=== PATIENT | female | born 1960 | race Two or more races ===

== ENCOUNTER 2025-09-15 09:46 | Inpatient (IN) | payer OTHER, MEDICAID ==
[~2025-09-15] VITALS: Ht 157.5 cm; Wt 98.1 kg
--- NOTE | 2025-09-15 11:57 | ED.PDOC ---
HPI Comments This is a 65 year old female presenting to the ED with chief complaint of extremity swelling. Patient reports that she has been experiencing bilateral lower leg swelling with associated redness, drainage, and SOB for the past month, worsening over time and worse to her left leg. Patient denies any chest pain, dizziness, fever, chills, numbness, or weakness. Chief Complaint: Extremity Swelling Time Seen by MD: 11:56 Reviewed Notes: Nurses Notes, Medications, Allergies Allergies: Coded Allergies: NO KNOWN ALLERGIES (Unverified , 09/15/25) Information Source: Patient Mode of Arrival: Wheelchair Severity: Moderate Timing: Months Duration: Since onset Prehospital treatment: None Onset: At Rest Cardiac Risk Factors: HTN Associated Signs and Symptoms: SOB, Calf Swelling Past Medical History PAST MEDICAL HISTORY: CHF, Depression, HTN Surgical History: Denies all surgeries Family History Family History: Reviewed,noncontributory to illness Social History Smoker: Non-Smoker Alcohol: Denies ETOH Use Drugs: Denies Drug Use Lives In: Home Constitutional: denies: chills, diaphoresis, fatigue, fever, malaise, sweats, weakness, others EENTM: denies: blurred vision, double vision, ear bleeding, ear discharge, ear drainage, ear pain, ear ringing, eye pain, eye redness, hearing loss, mouth pain, mouth swelling, nasal discharge, nose bleeding, nose congestion, nose pain, photophobia, tearing, throat pain, throat swelling, voice changes, others Respiratory: reports: shortness of breath; denies: cough, hemoptysis, orthopnea, SOB at rest, SOB with excertion, stridor, wheezing, others Cardiovascular: reports: edema; denies: chest pain, dizzy spells, diaphoresis, Dyspnea on exertion, irregular heart beat, left arm pain, lightheadedness, palpitations, PND, syncope, others Gastrointestinal: denies: abdomen distended, abdominal pain, blood streaked bowels, constipated, diarrhea, dysphagia, difficulty swallowing, hematemesis, melena, nausea, poor appetite, poor fluid intake, rectal bleeding, rectal pain, vomiting, others Genitourinary: denies: burning, dysuria, flank pain, frequency, hematuria, incontinence, penile discharge, penile sore, pain, testicle pain, testicle swelling, urgency, others Neurological: denies: dizziness, fainting, headache, left sided numbness, left sided weakness, numbness, paresthesia, pre-existing deficit, right sided numbness, right sided weakness, seizure, speech problems, tingling, tremors, weakness, others Musculoskeletal: denies: back pain, gout, joint pain, joint swelling, muscle pain, muscle stiffness, neck pain, others Integumetry: reports: others (Redness to bilateral lower extremity); denies: bruises, change in color, change in hair/nails, dryness, laceration, lesions, lumps, rash, wounds Allergic/Immunocompromised: denies: Difficulty Healing, Frequent Infections, Hives, Itching, others Hematologic/Lymphatic: denies: anemia, blood clots, easy bleeding, easy bruising, swollen glands, others Endocrine: denies: excessive hunger, excessive sweating, excessive thirst, excessive urination, flushing, intolerance to cold, intolerance to heat, unexplained weight gain, unexplained weight loss, others Psychiatric: denies: anxiety, bipolar disorder, depression, hopeless, panic disorder, schizophrenia, sleepless, suicidal, others All Other Systems: Reviewed and Negative Physical Exam General Appearance: Moderate Distress, Obese HEENT: Normal ENT Inspection, PERRL/EOMI, Pharynx Normal, TMs Normal Neck: Full Range of Motion, Non-Tender, Normal, Normal Inspection Respiratory: Crackles, Decreased Breath Sounds, Expiration, Inspiration, No Respiratory Distress, Rhonchi, Wheezing Cardiovascular: No Edema, No JVD, No Murmur, No Gallop, Normal Peripheral Pulses, Regular Rate/Rhythm Breast Exam: Deferred Gastrointestinal: No Organomegaly, Non Tender, No Pulsatile Mass, Normal Bowel Sounds, Soft, Other (Obesity) Genitalia: Deferred Pelvic: Deferred Rectal: Deferred Extremities: Decreased range of motion, Inflammation, Leg edema, Pedal edema, Swelling, Tender Neurologic: Alert, Depressed Affect, Sensory Deficit Cerebellar Function: Normal Reflexes: NOT DONE Skin: Rash, Wounds Peripheral Pulses: 1+ carotid (R), 1+ carotid (L) Lymphatic: No Adenopathy Was a procedure done? Was a procedure done?: No CP Differential Dx Differential Diagnosis: Electrolyte Disorder, Heart Failure, SC, Renal Failure Differential Diagnosis: CHF Differential Diagnosis: Angina, Pneumonia X-Ray, Labs, Meds, VS Vital Signs Date Time Temp Pulse Resp B/P (MAP) Pulse Ox O2 Delivery O2 Flow Rate FiO2 09/15/25 09:47 97.7 103 15 131/71 95 97.7 Lab Test 09/15/25 12:10 Range/Units White Blood Count 11.1 H 4.4-10.8 10^3/uL Red Blood Count 3.42 L 4.5-5.90 10^6/uL Hemoglobin 10.5 L 13.5-17.5 g/dL Hematocrit 32.1 L 41.0-53.0 % Mean Corpuscular Volume 93.7 80.0-100.0 fL Mean Corpuscular Hemoglobin 30.7 28.0-32.0 pg Mean Corpuscular Hemoglobin Concent 32.7 32.0-36.0 g/dL Red Cell Distribution Width 15.8 H 11.8-14.3 % Platelet Count 314 140-450 10^3/uL Mean Platelet Volume 6.6 L 6.9-10.8 fL Neutrophils (%) (Auto) 74.5 37.0-80.0 % Lymphocytes (%) (Auto) 13.3 10.0-50.0 % Monocytes (%) (Auto) 7.2 0.0-12.0 % Eosinophils (%) (Auto) 4.1 0.0-7.0 % Basophils (%) (Auto) 0.9 0.0-2.0 % Neutrophils # (Auto) 8.3 1.6-8.6 10 ^3/uL Lymphocytes # (Auto) 1.5 0.4-5.4 10 ^3/uL Monocytes # (Auto) 0.8 0-1.3 10 ^3/uL Eosinophils # (Auto) 0.5 0-0.8 10 ^3/uL Basophils # (Auto) 0.1 0-0.2 10 ^3/uL Nucleated Red Blood Cells 0.0 % Sodium Level 134 L 136-145 mmol/L Potassium Level 4.8 3.5-5.1 mmol/L Chloride Level 98 98-107 mmol/L Carbon Dioxide Level 24 20-31 mmol/L Anion Gap 12 5-15 Blood Urea Nitrogen 26 H 9-23 mg/dL Creatinine 1.23 0.700-1.30 mg/dL Glomerular Filtration Rate Calc 66 >90 mL/min BUN/Creatinine Ratio 21.1 H 10.0-20.0 Serum Glucose 104 74-106 mg/dL Calcium Level 10.2 8.7-10.4 mg/dL Magnesium Level 2.4 1.6-2.6 mg/dL Total Bilirubin 0.4 0.2-1.0 mg/dL Aspartate Amino Transferase (AST) 37 13-40 U/L Alanine Aminotransferase (ALT) 25 7-40 U/L Alkaline Phosphatase 125 H 46-116 U/L Troponin I High Sensitivity 5 </=54 ng/L B-Type Natriuretic Peptide 25.18 0-100 pg/mL Total Protein 8.0 5.7-8.2 g/dL Albumin 4.6 3.2-4.8 g/dL Thyroid Stimulating Hormone (TSH) 3.22 0.55-4.78 uIU/mL [place] [id number] Ph: [phone] DIAGNOSTIC IMAGING Diagnostic Imaging Report : [id number] Signed PATIENT: KARISHMA MILLER ACCT: [id number] UNIT: [id number] : 1960 LOC: ER ROOM / BED: / AGE / SEX: 65 / M ADM STATUS: REG ER SERVICE 1158 ORDERING PHYSICIAN: WES ALCANTAR MD PROCEDURE(s): CXR2 - CHEST TWO VIEWS ROUTINE REASON: CHF ORDER NUMBER(s): [id number], ACCESSION NUMBER(s): [id number] XY CHEST TWO VIEWS ROUTINE CLINICAL HISTORY: CHF COMPARISON: None TECHNIQUE: Frontal and lateral view of the chest was obtained FINDINGS: Lines and Tubes: None Lungs: No focal consolidation. Pleura: No effusion. No pneumothorax. Cardiomediastinal contours:Cardiomegaly Bones: No acute osseous abnormality. IMPRESSION: Cardiomegaly with CHF. ATED BY: RICARDO BARLOW MD DICTATED DATE/TIME: 09/15/251258 SIGNED BY: RICARDO BARLOW MD SIGNED DATE/TIME: 09/15/251258 CC: X-Ray, Labs, Meds, VS Comment Course in the emergency department eventful patient came in because of swollen legs with a dermatitis and cellulitis blood pressure 130/100 with 71 chest x-ray shows cardiomegaly with CHF [place] [id number] with 74.5% neutrophils H&H 10.5 and 32 CMP normal Magnesium 2.4 Troponin five BNP 25.18 TSH 3.22 Patient will be admitted for further care Images Reviewed?: Images reviewed and evaluated by me Time of 1ST Reevaluation: 12:55 Reevaluation 1ST: Unchanged Patient Education/Counseling: Diagnosis, Treatment Family Education/Counseling: No Family Present SEPSIS Sepsis Screen Date sepsis recognized/suspect: Sep 15, 2025 Time Sepsis recognized/suspect: 948 Recent Procedure: No On Antibiotic Therapy: No Respiratory Rate >20: No Heart Rate >90: Yes Temp<36 C (96.8 F) or >38.3 C: No SBP <90 or MAP <65 mmHG: No New Acute Mental Status Change: No Is the patient on CPAP, BIPAP,: No Physician Orders Heplock Iv (09/15/25 11:58) Blood Pressure (09/15/25 11:58) Chest Two Views Routine (09/15/25 11:58) Sodium Chloride 0.9% (09/15/25 12:00) Urinalysis (09/15/25 11:58) Electrocardigram (09/15/25 15:52) Vital Signs Date Time Temp Pulse Resp B/P (MAP) Pulse Ox O2 Delivery O2 Flow Rate FiO2 09/15/25 09:47 97.7 103 15 131/71 95 97.7 Laboratory Tests Test 09/15/25 12:10 White Blood Count 11.1 10^3/uL (4.4-10.8) H Departure 1 Departure Time of Disposition: 15:55 Impression: Primary Impression: CHF (congestive heart failure) Additional Impressions: Venous stasis dermatitis of both lower extremities Cellulitis and abscess of lower extremity Disposition: ADMITTED INPATIENT Admit to: Tele Condition: Serious Critical Care Note Critical Care Time?: No Stability Stability form required: Yes Heart Score Heart Score: Heart Score Response (Comments) Value History Slightly Suspicious 0 EKG Normal 0 Age 45-64 1 Risk Factors >3 or Hx ASHD 2 Troponin Normal limit 0 Total 3 I personally scribed for WES ALCANTAR MD ([email or web address]) on 09/15/25 at 11:57. Electronically submitted by Tu Barron ([email or web address]). I personally scribed for WES ALCANTAR MD ([email or web address]) on 09/15/25 at 13:21. Electronically submitted by Tu Barron ([email or web address]). WES ALCANTAR MD Sep 15, 2025 11:57
[2025-09-15 12:26] LABS: Hematocrit 32.1 % (41.0-53.0); Hemoglobin 10.5 g/dL (13.5-17.5); Mean Corpuscular Hemoglobin 30.7 pg (28.0-32.0); Mean Corpuscular Volume 93.7 fL (80.0-100.0); Nucleated Red Blood Cells % 0.0 %
[2025-09-15 12:43] LABS: Alanine Aminotransferase 25 U/L (7-40); Albumin 4.6 g/dL (3.2-4.8); Anion Gap 12 (5-15); BUN/Creatinine Ratio 21.1 (10.0-20.0); Calcium 10.2 mg/dL (8.7-10.4); Carbon Dioxide 24 mmol/L (20-31); Chloride 98 mmol/L (98-107); Glucose 104 mg/dL (74-106); Magnesium 2.4 mg/dL (1.6-2.6); Potassium 4.8 mmol/L (3.5-5.1); Total Protein 8.0 g/dL (5.7-8.2)
[2025-09-15 12:44] LABS: Alkaline Phosphatase 125 U/L (46-116); Bilirubin, Total 0.4 mg/dL (0.2-1.0); Blood Urea Nitrogen 26 mg/dL (9-23); Sodium 134 mmol/L (136-145)
--- NOTE | 2025-09-15 13:01 | DVH ---
XY CHEST TWO VIEWS ROUTINE CLINICAL HISTORY: CHF COMPARISON: None TECHNIQUE: Frontal and lateral view of the chest was obtained FINDINGS: Lines and Tubes: None Lungs: No focal consolidation. Pleura: No effusion. No pneumothorax. Cardiomediastinal contours:Cardiomegaly Bones: No acute osseous abnormality. IMPRESSION: Cardiomegaly with CHF.
[2025-09-15] MEDS: SODIUM CHLORIDE 0.9% 1,000 ML IV ONE (15:05)
[2025-09-15] MEDS: FUROSEMIDE 40 MG/4 ML VIAL IV ONE (16:00)
[2025-09-15] MEDS: SPIRONOLACTONE 25 MG TAB PO ONE (16:00)
[2025-09-15] MEDS ORDERED: MORPHINE SULFATE INJ 2 MG/ml SYRG IV PRN ×2 (16:30)
[2025-09-15] MEDS ORDERED: ACETAMINOPHEN 325 MG TAB PO PRN (16:30)
[2025-09-15] MEDS ORDERED: ONDANSETRON HCL 4 MG/2 ML VIAL IV PRN (16:30)
[2025-09-15] MEDS ORDERED: DOCUSATE SOD 100 MG CAP PO PRN (16:30)
[2025-09-15] MEDS ORDERED: NITROGLYCERIN 0.4 MG SL TAB SL PRN (16:30)
[2025-09-15] MEDS ORDERED: VANCOMYCIN PER PHARMACY 0 MG IV SCH (17:15)
--- NOTE | 2025-09-15 17:28 | DVHHPRES ---
History of Present Illness Resident Creating Document: SANTY MCFARLAND RESIDENT History of Present Illness Ms. Delcid, a 65-year-old female with a history of HFpEF, hypertension, copd /asthma, Dyslipidemia, GERD, obesity, schizophrenia, osteoarthritis, chronic low back pain, and depression presenting to the ED with bilateral lower extremity swelling for the past month, progressively worsening and more severe in the left leg. She reports associated redness, drainage, and shortness of breath. She denies chest pain, dizziness, fever, chills, numbness, or weakness. No prior surgeries, family history is noncontributory, and she denies tobacco, alcohol, or drug use. She arrived by wheelchair, symptoms began at rest, and no prehospital treatment was given. Differential diagnoses include electrolyte disorder, congestive heart failure, myocardial infarction, renal failure, angina, and pneumonia. Past Medical History: HFpEF, hypertension, COPD/asthma, Dyslipidemia, GERD, obesity, schizophrenia, osteoarthritis, chronic low back pain, and depression Surgical History: Denies all surgeries Family History: Reviewed, noncontributory to illness, HTN, DMII Social History: She is a non-smoker, denies alcohol and drug use, and lives at home. Review of Systems Constitutional: Yes: Malaise; No: Fever, Chills, Sweats, Weakness, Other Eyes: No: Pain, Vision change, Conjunctivae inflammation, Eyelid inflammation, Other, Redness ENT: No: Ear pain, Ear discharge, Nose pain, Nose discharge, Nose congestion, Mouth pain, Mouth swelling, Throat pain, Throat swelling, Other Respiratory: SOB with excertion; No: Cough, Dry, Shortness of breath, Wheezing, Hemoptysis, Pleuritic Pain, Sputum, Wheezing, Other Cardiovascular: Edema; No: Chest Pain, Palpitations, Orthopnea, Paroxysmal Noc. Dyspnea, Lt Headedness, Other Gastrointestinal: No: Nausea, Vomiting, Abdominal Pain, Diarrhea, Constipation, Melena, Hematochezia, Other Genitourinary: No Dysuria, No Frequency, No Incontinence, No Hematuria, No Retention, No Other Musculoskeletal: leg pain; No: other, neck pain, shoulder pain, arm pain, back pain, hand pain, foot pain Skin: Other (mild nonspecific redness to legs, congestive ); No: Rash, Lesions, Jaundice, Bruising Neurological: No: Weakness, Numbness, Incoordination, Change in speech, Con fusion, Seizures, Other Allergies: Coded Allergies: NO KNOWN ALLERGIES (Unverified , 09/15/25) Medications Current Medications Medications Dose Ordered Sig/Ida Route Start Time Stop Time Status Last Admin Dose Admin Temazepam 15 mg QHSP PRN PO 09/15/25 16:30 Ondansetron HCl 4 mg Q4HP PRN IV 09/15/25 16:30 Docusate Sodium 100 mg BIDPRN PRN PO 09/15/25 16:30 Enoxaparin Sodium 40 mg DAILY SC 09/16/25 10:00 Acetaminophen 650 mg Q6HP PRN PO 09/15/25 16:30 Morphine Sulfate 2 mg Q4HPRN PRN IV 09/15/25 16:30 Nitroglycerin 0.4 mg Q5MINP PRN SL 09/15/25 16:30 Morphine Sulfate 2 mg Q30M PRN IV 09/15/25 16:30 Exam Vital Signs Vital Signs Date Time Temp Pulse Resp B/P (MAP) Pulse Ox O2 Delivery O2 Flow Rate FiO2 09/15/25 09:47 97.7 103 15 131/71 95 97.7 General Appearance: Alert, Oriented X3, mild distress HEENT: Atraumatic, PERRLA, EOMI, Mucous membr. moist/pink Respiratory: Clear to auscultation, Normal air movement, Other (b/l basal crackles, Right> left , in RA ) Cardiovascular: Normal S1, Normal S2, No murmurs, Other (tachycardia in 100s regular pulses) Abdominal: Normal bowel sounds, Soft, No tenderness, No hepatospenomegaly, Other (deep epigastric tenderness. ) Extremities: Normal pulses, Other (b/l leg swelling 2+ pitting edema ) Skin: No rashes, No breakdown, No significant lesion Neuro: Normal gait, Normal speech, Strength at 5/5 X4 ext, Normal tone, Sensation intact, Cranial nerves 3-12 NL Psych/Mental Status: Mental status NL, Mood NL Labs/Xrays Labs Test 09/15/25 12:10 Range/Units White Blood Count 11.1 H 4.4-10.8 10^3/uL Red Blood Count 3.42 L 4.5-5.90 10^6/uL Hemoglobin 10.5 L 13.5-17.5 g/dL Hematocrit 32.1 L 41.0-53.0 % Mean Corpuscular Volume 93.7 80.0-100.0 fL Mean Corpuscular Hemoglobin 30.7 28.0-32.0 pg Mean Corpuscular Hemoglobin Concent 32.7 32.0-36.0 g/dL Red Cell Distribution Width 15.8 H 11.8-14.3 % Platelet Count 314 140-450 10^3/uL Mean Platelet Volume 6.6 L 6.9-10.8 fL Neutrophils (%) (Auto) 74.5 37.0-80.0 % Lymphocytes (%) (Auto) 13.3 10.0-50.0 % Monocytes (%) (Auto) 7.2 0.0-12.0 % Eosinophils (%) (Auto) 4.1 0.0-7.0 % Basophils (%) (Auto) 0.9 0.0-2.0 % Neutrophils # (Auto) 8.3 1.6-8.6 10 ^3/uL Lymphocytes # (Auto) 1.5 0.4-5.4 10 ^3/uL Monocytes # (Auto) 0.8 0-1.3 10 ^3/uL Eosinophils # (Auto) 0.5 0-0.8 10 ^3/uL Basophils # (Auto) 0.1 0-0.2 10 ^3/uL Nucleated Red Blood Cells 0.0 % Sodium Level 134 L 136-145 mmol/L Potassium Level 4.8 3.5-5.1 mmol/L Chloride Level 98 98-107 mmol/L Carbon Dioxide Level 24 20-31 mmol/L Anion Gap 12 5-15 Blood Urea Nitrogen 26 H 9-23 mg/dL Creatinine 1.23 0.700-1.30 mg/dL Glomerular Filtration Rate Calc 66 >90 mL/min BUN/Creatinine Ratio 21.1 H 10.0-20.0 Serum Glucose 104 74-106 mg/dL Calcium Level 10.2 8.7-10.4 mg/dL Magnesium Level 2.4 1.6-2.6 mg/dL Total Bilirubin 0.4 0.2-1.0 mg/dL Aspartate Amino Transferase (AST) 37 13-40 U/L Alanine Aminotransferase (ALT) 25 7-40 U/L Alkaline Phosphatase 125 H 46-116 U/L Troponin I High Sensitivity 5 </=54 ng/L B-Type Natriuretic Peptide 25.18 0-100 pg/mL Total Protein 8.0 5.7-8.2 g/dL Albumin 4.6 3.2-4.8 g/dL Thyroid Stimulating Hormone (TSH) 3.22 0.55-4.78 uIU/mL SEPSIS Sepsis Screen Date sepsis recognized/suspect: Sep 15, 2025 Time Sepsis recognized/suspect: 948 Recent Procedure: No On Antibiotic Therapy: No Respiratory Rate >20: No Heart Rate >90: Yes Temp<36 C (96.8 F) or >38.3 C: No SBP <90 or MAP <65 mmHG: No New Acute Mental Status Change: No Is the patient on CPAP, BIPAP,: No Physician Orders Heplock Iv (09/15/25 11:58) Blood Pressure (09/15/25 11:58) Chest Two Views Routine (09/15/25 11:58) Sodium Chloride 0.9% (09/15/25 12:00) Urinalysis (09/15/25 11:58) Electrocardigram (09/15/25 15:52) Admit (09/15/25 16:22) Allergies (09/15/25 16:22) Code Status (09/15/25 16:22) Temazepam (Restoril) (09/15/25 16:30) Ondansetron Hcl (Zofran) (09/15/25 16:30) Docusate Sodium Capsule (Colace Capsule) (09/15/25 16:30) Enoxaparin Sodium (Lovenox) (09/16/25 10:00) Fall Risk Precautions In Place QSHIFT (09/15/25 16:22) Complete Blood Count (09/16/25 04:00) Comprehensive Metabolic Panel (09/16/25 04:00) Cardiac Diet-2gna,Lofat,Lochol (09/15/25 Dinner) Pt Request For Service (09/15/25 16:22) Echo 2d Mode Cardiac Dop (09/15/25 16:22) Condition: Serious (09/15/25 16:22) Acetaminophen Tablet (Tylenol Tablet) (09/15/25 16:30) Bedrest With Bathroom Privileg (09/15/25 16:22) Morphine Sulfate Injection (09/15/25 16:30) Nitroglycerin Sublingual (Ntrostat Subli (09/15/25 16:30) Morphine Sulfate Injection (09/15/25 16:30) Stat Ekg For Chest Pain (09/15/25 16:22) Notify Of Changes From Base (09/15/25 16:22) Photography Editor For 24 Hours (09/15/25 16:22) Emergency Dysrhythmia Protocol (09/15/25 16:22) Rhythm Strips Once Every Shift (09/15/25 16:22) LIVER (09/15/25 16:55) Lipase (09/15/25 16:55) Lactic Acid W/ Reflex Order (09/15/25 16:55) Prothrombin Time W/ Inr (09/15/25 16:57) Drug Screen (09/15/25 16:57) Covid19 Antigen Nola (09/15/25 ) Rapid Influenza A&B (09/15/25 16:57) D-Dimer (09/15/25 17:01) Bilat Lower Dvt (09/15/25 17:01) Vital Signs Date Time Temp Pulse Resp B/P (MAP) Pulse Ox O2 Delivery O2 Flow Rate FiO2 09/15/25 09:47 97.7 103 15 131/71 95 97.7 Laboratory Tests Test 09/15/25 12:10 White Blood Count 11.1 10^3/uL (4.4-10.8) H Assessment/Plan Assessment/Plan # Acute bilateral leg swelling: Broad differentials include thromboembolic disease, CHF exacerbation, skin and soft tissue infections, vascular congestion, vascular insufficiency, medication side effects of home medication /amlodipine , associated shortness of breath, moderately score and Wells criteria, we will check D-dimer and bilateral leg DVT ultrasound. Check lactate, CK rule out compartment syndrome. Given risk of cellulitis in a complicated patient we will cover for now for Streptococcus and Staphylococcus with vancomycin. S/p ceftriaxone. # Sinus tachycardia: Denies chest pain, HR in 103, afebrile, otherwise Hemodynamically stable. if desaturates we will workup further for PE/DVT. telemetry # Normocytic anemia, presented: with hemoglobin of 10.5, RDW 15.8, unknown baseline, trend, reported no active bleeding. Check for iron panel With ferritin. stool occult, when possible (patient outside of lobby) rectal exam. # CKD versus TOM due to VMN: no known baseline, presumably 1.23, trend renal functions, check input output, avoid nephrotoxic. associated mild dehydration , likely prerenal with elevated BUN of 26, gentle hydration to continue for now # mild hyponatremia, 134, POA: likely hypovolumia, Gentle hydration to continue, rechecked tomorrow. # known HFpEF, acute on chronic: recheck ECHo, last in file 2016. prior history of HFpEF previously on furosemide 20 mg, recently was increased to 40 mg daily oral. No echo on file check echo, fluid restriction, salt restriction, further management based on assessment, in room air clinically not fluid overloaded. will hold, as needed IV 40 mg Lasix. # Likely CHF exacerbation. # Likely hypertensive heart disease: Moderate Cardiomegaly, noted in chest x- ray, leg swelling r/o acute CHF # bilateral pulmonary congestion: Unremarkable BNP, troponins negative, TSH WNL, echo, no known echo on file, viral pneumonia to rule out. # obesity grade 2: BMI 36.3, weight loss, lifestyle modification counseling. modify obesity, lipids and HbA1C. # known COPD/ asthma: no wheezing noted, in room air, subjective SOB, CXR unremarkable for CAP, check MRSA. as needed levalbuterol, ipratropium. # GERD on PPI: at home Omeprazole 20 mg, continue, iv ppi. # Known essential hypertension: Previously on lisinopril 10 mg change to losartan potassium 25 mg daily, metoprolol succinate 100 mg daily, amlodipine 10 mg daily, will hold antihypertensives, target BP 140/90 with cardiac diet. Holding as the BP softer, start when BP is elevated. # dyslipidemia on atorvastatin 20 mg daily: we will continue at 40 mg daily # depression / anxiety: Bupropion XL 150 mg daily: will use the 75 bid variant in hospital as alternative. # schizophrenia /history of psychosis: no active psychosis noted, Continue aripiprazole 20 mg from home medications, close monitoring. consider restarting NF. # psychiatric diagnosis complicated with insomnia: On mirtazapine 15 mg nighttime, to continue. # Chronic low back pain: Neuropathic, on cyclobenzaprine hydrochloride 10 mg t.i.d. as needed, physical therapy out of long-term ALOC heart rate during , 10 [place] previously as needed for pain control. # Delirium risk: higher, advanced age with multiple neuropsychiatric medications , medication reconcile along with delirium precautions. # Osteoarthritis: Likely age-related, mild stiffness/ pains, limited mobility issue, check PT before safe discharge, Consider Voltaren gel locally for pain management. lidocaine patches. PUD prophylaxis: protonix 40mg IV to continue DVT prophylaxis: 40mg sc for prevention of DVT, will upgrade to therapeutic if DVT/PE noted. Barriers to discharge: Medical diagnosis and management in progress. Patient li ves with self / family. Independent/need supportive device/wheelchair/person support for ADL. PT and SW consult as needed. PCP: Lizett Ruvalcaba, Specialist Relevant To Admission: NA Case discussed with Dr. Hernandez. Code Status: Full Code. Care and Discussion needed total 27 minutes bedside. Plan discussed with: Patient, Other (primary RN team. ) My Orders Orders - SANTY MCFARLAND RESIDENT Procedure Category Date Status Time Admit ADMIT 09/15/25 Transmitted 16:22 Allergies ALINE 09/15/25 In Process 16:22 Code Status CODE 09/15/25 Transmitted 16:22 Temazepam (Restoril) PHA 09/15/25 In Process 16:30 Ondansetron Hcl PHA 09/15/25 In Process (Zofran) 16:30 Docusate Sodium PHA 09/15/25 In Process Capsule (Colace 16:30 Enoxaparin Sodium PHA 09/16/25 In Process (Lovenox) 10:00 Fall Risk Precautions ALINE 09/15/[address] 16:22 Complete Blood Count LAB 09/16/25 Verified 04:00 Comprehensive LAB 09/16/25 Verified Metabolic Panel 04:00 Cardiac DIET 09/15/25 Transmitted Diet-2gna,Lofat,Lochol Dinner Pt Request For Service PT 09/15/25 Logged 16:22 Echo 2d Mode Cardiac US 09/15/25 Logged DOP 16:22 Condition: Serious ALINE 09/15/25 In Process 16:22 Acetaminophen Tablet PHA 09/15/25 In Process (Tylenol Tablet) 16:30 Bedrest With Bathroom ALINE 09/15/25 In Process Privileg 16:22 Morphine Sulfate PHA 09/15/25 In Process Injection 16:30 Nitroglycerin PHA 09/15/25 In Process Sublingual (Ntrostat 16:30 Morphine Sulfate PHA 09/15/25 In Process Injection 16:30 Stat Ekg For Chest [facility] 09/15/25 In Process Pain 16:22 Notify Of Changes [facility] 09/15/25 In Process From Base 16:22 Photography Editor For [facility] 09/15/25 In Process 24 Hours 16:22 Emergency Dysrhythmia [facility] 09/15/25 In Process Protocol 16:22 Rhythm Strips Once [facility] 09/15/25 In Process Every Shift 16:22 LIVER US 09/15/25 Logged 16:55 Lipase LAB 09/15/25 In Process 16:55 Lactic Acid W/ Reflex LAB 09/15/25 Logged Order 16:55 Prothrombin Time W/ LAB 09/15/25 Logged INR 16:57 Drug Screen LAB 09/15/25 Logged 16:57 Covid19 Antigen Nola LAB 09/15/25 Logged Rapid Influenza A&B LAB 09/15/25 Logged 16:57 D-Dimer LAB 09/15/25 Transmitted 17:01 Bilat Lower Dvt US 09/15/25 Logged 17:01 Date of Service: Sep 15, 2025 Billing Provider: VENESSA HERNANDEZ MD Common Visit Codes: 95517-[id number] INP/OBS CARE (HIGH) Secondary Visit Codes: [id number] CARE PLAN 30 MINUTES SANTY MCFARLAND RESIDENT Sep 15, 2025 17:28
[2025-09-15] MEDS: VANCOMYCIN 1.25GM/250ML 250 ML IV ONE (17:45)
--- NOTE | 2025-09-15 18:02 | DVH ---
Technique: Real-time ultrasound imaging of the abdomen was performed with grayscale and color Doppler. Indication: rule out hepatobiliary tree obstruction/stone / mass Comparison: None Findings: Limited examination due to habitus Liver measures 16.3 cm. It is increased in echogenicity and echotexture without focal mass. Portal vein is normal in caliber and demonstrates normal hepatopetal flow. Gallbladder demonstrates no evidence for cholelithiasis. There is no pericholecystic fluid. The wall thickness is normal. The common bile duct is nonvisualized. The right kidney measures 9.3 cm. The left kidney measures 9.3 cm. No hydronephrosis . Nonobstructing right renal calculus measuring 1.4 cm. The visualized portion of the pancreas is unremarkable. Spleen measures 10.5 cm. The visualized portion of the IVC is unremarkable. Impression: Limited examination due to habitus. No definitive cholelithiasis. MRI abdomen/ MRCP can be obtained to further evaluate as clinically warranted. Echogenic liver which can be seen with hepatic steatosis, cirrhosis. Nonobstructing right renal calculus measuring 1.4 cm.
--- NOTE | 2025-09-15 18:03 | DVH ---
CLINICAL HISTORY: b/l leg swelling. rule out DVT TECHNIQUE: Color and duplex doppler imagine of the bilateral lower extremity veins was performed. Vessel compression and augmentation if possible was also performed. COMPARISON: None FINDINGS: Right Lower Extremity: Right common femoral vein: Normal compressibility and flow. Right superficial femoral vein: Normal compressibility and flow. Right popliteal vein: Normal compressibility and flow. Proximal calf veins demonstrate flow. Left Lower Extremity: Left common femoral vein: Normal compressibility and flow. Left superficial femoral vein: Normal compressibility and flow. Left popliteal vein: Normal compressibility and flow. Proximal calf veins demonstrate flow. IMPRESSION: NO SONOGRAPHIC EVIDENCE FOR DEEP VENOUS THROMBOSIS IN THE BILATERAL LOWER EXTREMITY VEINS.
[2025-09-15 19:28] LABS: INR 0.99 (0.9-1.15); Prothrombin Time 10.5 sec (9.3-11.8)
[2025-09-15 20:19] VITALS: PULSE 81; RESP 18; O2SAT 94
[2025-09-15] MEDS: LEVALBUTEROL HCL 1.25 MG/3 ML NEB ONE (20:19)
[2025-09-15] MEDS: IPRATROPIUM BROM 0.5 MG/2.5ML INH SOL ONE (20:19)
[2025-09-15 20:36] VITALS: BP 125/85; PULSE 81; RESP 18; TEMP 98.5; O2SAT 94
[2025-09-15 21:19] LABS: COVID19 ANTIGEN SOFIA FIA NEGATIVE (NEGATIVE)
[2025-09-15 22:43] VITALS: BP 123/63; PULSE 89; RESP 17; RESP 18; TEMP 97.3; TEMP 97.4; O2SAT 96
[2025-09-15] MEDS: MIRTAZAPINE 30 MG TAB PO SCH (23:00)
[2025-09-15] MEDS: ATORVASTATIN 20 MG TAB PO SCH (23:01)
[2025-09-16] VITALS (14 sets, daily range): BP systolic 102–119; BP diastolic 49–88; PULSE 89–115; RESP 14–22; TEMP 97.5–99.3; O2SAT 90–99
[2025-09-16] MEDS ORDERED: CLON0.1T PO (00:08)
[2025-09-16] MEDS ORDERED: MIRT-94 PO (00:08)
[2025-09-16] MEDS ORDERED: AMLO1TAB22 PO (00:08)
[2025-09-16] MEDS ORDERED: ATOR20TA50 PO (00:08)
[2025-09-16] MEDS ORDERED: BUPR-346 PO ×2 (00:08)
[2025-09-16] MEDS ORDERED: DULO20CA PO (00:08)
[2025-09-16] MEDS ORDERED: FURO20TA3 PO (00:08)
[2025-09-16] MEDS ORDERED: METO-159 PO (00:08)
[2025-09-16] MEDS ORDERED: GABA-1250 PO (00:14)
[2025-09-16] MEDS ORDERED: CYCL-839 PO (00:14)
[2025-09-16] MEDS ORDERED: LOSA-533 PO (00:14)
[2025-09-16] MEDS ORDERED: ARIP20TA4 PO (00:14)
[2025-09-16 03:05] LABS: Amphetamine Screen, Urine Neg (NEGATIVE)
[2025-09-16 03:07] LABS: Barbiturate Scree,Urine Neg (NEGATIVE); Benzodiazephine Screen, Urine Neg (NEGATIVE); Cannabinoid Screen, Urine Neg (NEGATIVE); Opiate Scree,Urine Neg (NEGATIVE); Phencyclidine Screen, Urine Neg (NEGATIVE)
[2025-09-16 03:09] LABS: Cocaine Screen, Urine Neg (NEGATIVE)
[2025-09-16 03:18] LABS: Urine Protein, UAD Negative (Negative)
[2025-09-16] MEDS: PANTOPRAZOLE 40 MG TAB PO SCH (05:53)
[2025-09-16 06:27] LABS: Hematocrit 30.9 % (36.0-46.0); Hemoglobin 10.3 g/dL (12.2-16.2); Mean Corpuscular Hemoglobin 30.7 pg (28.0-32.0); Mean Corpuscular Volume 92.2 fL (80.0-100.0); Nucleated Red Blood Cells % 0.1 %
[2025-09-16] MEDS: IPRATROPIUM BROM 0.5 MG/2.5ML INH SOL NEB SCH (06:30)
[2025-09-16] MEDS: LEVALBUTEROL HCL 1.25 MG/3 ML NEB NEB PRN (06:31)
[2025-09-16] MEDS: CYCLOBENZAPRINE HCL 10 MG TAB PO PRN (06:41)
[2025-09-16 06:50] LABS: Alanine Aminotransferase 26 U/L (7-40); Alkaline Phosphatase 111 U/L (46-116); Anion Gap 13 (5-15); BUN/Creatinine Ratio 19.7 (10.0-20.0); Blood Urea Nitrogen 23 mg/dL (9-23); Calcium 9.5 mg/dL (8.7-10.4); Carbon Dioxide 24 mmol/L (20-31); Chloride 101 mmol/L (98-107); Glucose 88 mg/dL (74-106); Potassium 3.7 mmol/L (3.5-5.1); Sodium 138 mmol/L (136-145); Total Protein 7.2 g/dL (5.7-8.2)
[2025-09-16 06:51] LABS: Albumin 4.2 g/dL (3.2-4.8)
[2025-09-16 06:52] LABS: Bilirubin, Total 0.4 mg/dL (0.2-1.0)
[2025-09-16] MEDS: VANCOMYCIN 750MG KIT 100 ML IV SCH (09:00)
[2025-09-16] MEDS: ENOXAPARIN SOD 40 MG/0.4 ML SYRINGE SC SCH (09:52)
[2025-09-16] MEDS: LIDOCAINE 5% TOPICAL PATCH TOP SCH (09:52)
--- NOTE | 2025-09-16 15:45 | DVHPN2 ---
Reviewed: Care Plan, H&P, Labs Changes from previous H/P or p: No Changes Eyes: No Pain, No Vision change, No Conjunctivae inflammation, No Eyelid inflammation, No Other, No Redness ENT: No Ear pain, No Ear discharge, No Nose pain, No Nose discharge, No Nose congestion, No Mouth pain, No Mouth swelling, No Throat pain, No Throat swelling, No Other Cardiovascular: No Chest Pain, No Palpitations, No Orthopnea, No Paroxysmal Noc. Dyspnea; Edema; No Lt Headedness, No Other Respiratory: No Cough, No Dry, No Shortness of breath; SOB with excertion; No Wheezing, No Hemoptysis, No Pleuritic Pain, No Sputum, No Other Gastrointestinal: No Nausea, No Vomiting, No Abdominal Pain, No Diarrhea, No Constipation, No Melena, No Hematochezia, No Other Genitourinary: No Dysuria, No Frequency, No Incontinence, No Hematuria, No Retention, No Other Musculoskeletal: No other, No neck pain, No shoulder pain, No arm pain, No back pain, No hand pain; leg pain; No foot pain Skin: No Rash, No Lesions, No Jaundice, No Bruising; Other (mild nonspecific redness to legs, congestive ) Objective Vitals Vital Signs Date Time Temp Pulse Resp B/P (MAP) Pulse Ox O2 Delivery O2 Flow Rate FiO2 09/16/25 13:00 99.0 96 18 106/58 (74) 92 99.0 09/16/25 10:57 Room Air 09/16/25 10:57 0 21 Intake/Output Intake and Output 09/16/25 07:00 Intake Total 450 ml Balance 450 ml Intake Oral 450 ml # Voids 1 Medications Current Medications Medications Dose Ordered Sig/Ida Route Start Time Stop Time Status Last Admin Dose Admin Temazepam 15 mg QHSP PRN PO 09/15/25 16:30 Ondansetron HCl 4 mg Q4HP PRN IV 09/15/25 16:30 Docusate Sodium 100 mg BIDPRN PRN PO 09/15/25 16:30 Enoxaparin Sodium 40 mg DAILY SC 09/16/25 10:00 09/16/25 09:52 40 MG Acetaminophen 650 mg Q6HP PRN PO 09/15/25 16:30 Morphine Sulfate 2 mg Q4HPRN PRN IV 09/15/25 16:30 Nitroglycerin 0.4 mg Q5MINP PRN SL 09/15/25 16:30 Morphine Sulfate 2 mg Q30M PRN IV 09/15/25 16:30 Pantoprazole Sodium 40 mg DAILY@0600 PO 09/16/25 06:00 09/16/25 05:53 40 MG Ipratropium [place] 0.5 mg Q6HWA NEB 09/15/25 18:00 09/16/25 10:57 0.5 MG Levalbuterol HCl 0.625 mg Q6HWA PRN NEB 09/15/25 18:00 10/02/25 23:59 09/16/25 10:57 0.625 MG Atorvastatin Calcium 40 mg HS PO 09/15/25 22:00 09/15/25 23:01 40 MG Bupropion HCl 75 mg BID@07,19 PO 09/15/25 19:00 09/16/25 05:54 75 MG Cyclobenzaprine HCl 5 mg Q8HPRN PRN PO 09/15/25 17:15 09/16/25 06:41 5 MG Mirtazapine 15 mg HS PO 09/15/25 22:00 09/15/25 23:00 15 MG Lidocaine 1 patch DAILY TOP 09/16/25 10:00 09/16/25 09:52 1 PATCH Vancomycin HCl 0 ml @ 0 mls/hr PER PHARMACY IV 09/15/25 17:15 Vancomycin HCl 100 ml @ 100 mls/hr Q12H IV 09/16/25 09:00 09/16/25 09:00 100 MLS/HR Laboratory Results Laboratory Tests 09/16/25 05:00 Chemistry Test 09/16/25 05:00 Albumin 4.2 g/dL (3.2-4.8) Calcium Level 9.5 mg/dL (8.7-10.4) Total Protein 7.2 g/dL (5.7-8.2) Coagulation Test 09/15/25 18:29 Prothrombin Time 10.5 sec (9.3-11.8) Prothrombin Time INR 0.99 (0.9-1.15) D-Dimer, Quantitative 2.05 mg/L FEU (0.0-0.49) H LFT Test 09/16/25 05:00 Alanine Aminotransferase (ALT) 26 U/L (7-40) Alkaline Phosphatase 111 U/L (46-116) Aspartate Amino Transferase (AST) 43 U/L (13-40) H Total Bilirubin 0.4 mg/dL (0.2-1.0) Urinalysis Test 09/16/25 02:40 Urine Color Light-yellow (Yellow) Urine Clarity Clear (Clear) Urine pH 5.0 (5.0-9.0) Urine Specific [place] 1.008 (1.001-1.035) Urine Protein Negative (Negative) Urine Ketones Negative (Negative) Urine Blood Negative /uL (Negative) Urine Nitrite Negative (Negative) Urine Bilirubin Negative (Negative) Urine Urobilinogen Normal mg/dL (Negative) Urine Leukocyte Esterase 1+ /uL (Negative) Urine RBC <1 /hpf (0 - 4) Urine Microscopic WBC 1 /HPF (0-5) Urine Squamous Epithelial Cells Few /hpf (<5) Urine Bacteria None seen /hpf (None Seen) Urine Hyaline Casts Mod /lpf (0 - 2) Urine Glucose Normal mg/dL (Normal) Assessment/Plan Assessment/Plan Ms. Delcid, a 65-year-old female with a history of HFpEF, hypertension, copd /asthma, Dyslipidemia, GERD, obesity, schizophrenia, osteoarthritis, chronic low back pain, and depression presenting to the ED with bilateral lower extremity swelling for the past month, progressively worsening and more severe in the left leg. She reports associated redness, drainage, and shortness of breath. She denies chest pain, dizziness, fever, chills, numbness, or weakness. No prior surgeries, family history is noncontributory, and she denies tobacco, alcohol, or drug use. She arrived by wheelchair, symptoms began at rest, and no prehospital treatment was given. Differential diagnoses include electrolyte disorder, congestive heart failure, myocardial infarction, renal failure, angina, and pneumonia. # Acute bilateral leg swelling: Broad differentials include thromboembolic disease, CHF exacerbation, skin and soft tissue infections, vascular congestion, vascular insufficiency, medication side effects of home medication /amlodipine , associated shortness of breath, moderately score and Wells criteria, we will check D-dimer and bilateral leg DVT ultrasound. Check lactate, CK rule out compartment syndrome. Given risk of cellulitis in a complicated patient we will cover for now for Streptococcus and Staphylococcus with vancomycin. S/p ceftriaxone. # Sinus tachycardia: Denies chest pain, HR in 103, afebrile, otherwise Hemodynamically stable. if desaturates we will workup further for PE/DVT. telemetry # Normocytic anemia, presented: with hemoglobin of 10.5, RDW 15.8, unknown baseline, trend, reported no active bleeding. Check for iron panel With ferritin. stool occult, when possible (patient outside of lobby) rectal exam. # CKD versus TOM due to VMN: no known baseline, presumably 1.23, trend renal functions, check input output, avoid nephrotoxic. associated mild dehydration , likely prerenal with elevated BUN of 26, gentle hydration to continue for now # mild hyponatremia, 134, POA: likely hypovolumia, Gentle hydration to continue, rechecked tomorrow. # known HFpEF, acute on chronic: recheck ECHo, last in file 2016. prior history of HFpEF previously on furosemide 20 mg, recently was increased to 40 mg daily oral. No echo on file check echo, fluid restriction, salt restriction, further management based on assessment, in room air clinically not fluid overloaded. will hold, as needed IV 40 mg Lasix. # Likely CHF exacerbation. # Likely hypertensive heart disease: Moderate Cardiomegaly, noted in chest x- ray, leg swelling r/o acute CHF # bilateral pulmonary congestion: Unremarkable BNP, troponins negative, TSH WNL, echo, no known echo on file, viral pneumonia to rule out. # obesity grade 2: BMI 36.3, weight loss, lifestyle modification counseling. modify obesity, lipids and HbA1C. # known COPD/ asthma: no wheezing noted, in room air, subjective SOB, CXR unremarkable for CAP, check MRSA. as needed levalbuterol, ipratropium. # GERD on PPI: at home Omeprazole 20 mg, continue, iv ppi. # Known essential hypertension: Previously on lisinopril 10 mg change to losartan potassium 25 mg daily, metoprolol succinate 100 mg daily, amlodipine 10 mg daily, will hold antihypertensives, target BP 140/90 with cardiac diet. H olding as the BP softer, start when BP is elevated. # dyslipidemia on atorvastatin 20 mg daily: we will continue at 40 mg daily # depression / anxiety: Bupropion XL 150 mg daily: will use the 75 bid variant in hospital as alternative. # schizophrenia /history of psychosis: no active psychosis noted, Continue aripiprazole 20 mg from home medications, close monitoring. consider restarting NF. # psychiatric diagnosis complicated with insomnia: On mirtazapine 15 mg nighttime, to continue. # Chronic low back pain: Neuropathic, on cyclobenzaprine hydrochloride 10 mg t.i.d. as needed, physical therapy out of long-term ALOC heart rate during , 10 [place] previously as needed for pain control. # Delirium risk: higher, advanced age with multiple neuropsychiatric medications , medication reconcile along with delirium precautions. # Osteoarthritis: Likely age-related, mild stiffness/ pains, limited mobility issue, check PT before safe discharge, Consider Voltaren gel locally for pain management. lidocaine patches. Plan discussed with: Patient Date of Service: Sep 16, 2025 Billing Provider: LENORA MEJIAS DO Common Visit Codes: [id number] INP/OBS CARE(HIGH) LENORA MEJIAS DO Sep 16, 2025 15:44
[2025-09-16] MEDS: FUROSEMIDE 100 MG/10ML VIAL IV SCH (18:00)
[2025-09-16] MEDS: guaiFENesin-CODEINE Liq 5 ML UD PO PRN (20:38)
[2025-09-17] VITALS (14 sets, daily range): BP systolic 92–125; BP diastolic 42–61; PULSE 100–119; RESP 16–20; TEMP 97.9–99.2; O2SAT 91–99
--- NOTE | 2025-09-17 15:14 | DVHSR ---
APPROVED REPORT EXAM: Two-dimensional and M-mode echocardiogram with Doppler and color Doppler. Blood Pressure: 119/88 mmHg INDICATION rule out structrual disease RISK FACTORS Obesity: Height: 62, Weight: 213 DIMENSIONS LVDd 5.1 (3.8-5.7cm) LA (2D) 4.4 (1.9-4.0cm) Aortic Root 3.6 (2.0-3.7cm) LVDs 3.3 (2.5-4.0cm) LA (MM) (1.9-4.0cm) Aortic Cusp Exc 2.0 (1.5-2.0cm) EF (%) 55.0 (55-70%) Rt. Atrium 3.8 (1.9-4.0cm) Asc. Aorta cm IVSd 0.8 (0.7-1.1cm) RV (D) (1.8-2.4cm) PWd 1.1 (0.7-1.1cm) Mitral Valve Mitral Mitral Stenosis E wave 1.17m/s MV Mean GR. 5mmHg A wave 1.52m/s MV Peak GR. 69mmHg E/A ratio 0.8 2D MVA cm2 DECEL Time 141ms PRESS 1/2 Time ms Aortic Valve Aortic Valve Aortic Stenosis V1 1.80m/s AO Mean GR. 10mmHg V2 2.06m/s AO Peak GR. 17mmHg LVOT Diameter 2.3 (1.8-2.4cm) Doppler ROCIO 3.63cm2 Pulmonic Valve V2 1.48m/s Tricuspid Valve TR Velocity 2.97m/s RVSP 48mmHg Other Information Technically limited study due to patient position.body habitus. Conclusion Sinus rhythm. Left atrial enlargement. Valves are normal. 65% ejection fraction with normal RV function. Moderate tricuspid regurgitation with a right ventricular systolic pressure 40 mmHg. No pericardial effusion masses or vegetations.
[2025-09-17] MEDS: LEVALBUTEROL HCL 1.25 MG/3 ML NEB ONE (19:09)
[2025-09-17] MEDS: VANCOMYCIN 500mg/100mL 100 ML IV SCH (20:41)
[2025-09-18] VITALS (15 sets, daily range): BP systolic 105–122; BP diastolic 56–69; PULSE 89–107; RESP 16–18; TEMP 97.4–99.2; O2SAT 90–100
[2025-09-18 07:46] LABS: Hematocrit 27.7 % (36.0-46.0); Hemoglobin 9.2 g/dL (12.2-16.2); Mean Corpuscular Hemoglobin 30.7 pg (28.0-32.0); Mean Corpuscular Volume 92.0 fL (80.0-100.0); Nucleated Red Blood Cells % 0.0 %
[2025-09-19] VITALS (12 sets, daily range): BP systolic 119–136; BP diastolic 61–83; PULSE 96–112; RESP 16–22; TEMP 97.7–99; O2SAT 86–100
[2025-09-19 06:55] LABS: Hematocrit 30.0 % (36.0-46.0); Hemoglobin 9.9 g/dL (12.2-16.2); Mean Corpuscular Hemoglobin 30.4 pg (28.0-32.0); Mean Corpuscular Volume 92.1 fL (80.0-100.0); Nucleated Red Blood Cells % 0.1 %
[2025-09-19] MEDS: TEMAZEPAM 15 MG CAP PO PRN (21:30)
[2025-09-20] VITALS (8 sets, daily range): BP systolic 112–150; BP diastolic 53–76; PULSE 78–129; RESP 14–18; TEMP 97–98.3; O2SAT 88–98
--- NOTE | 2025-09-20 01:35 | DVHPN2 ---
Reviewed: Care Plan, H&P, Labs Changes from previous H/P or p: No Changes General: Per HPI Eyes: No Pain, No Vision change, No Conjunctivae inflammation, No Eyelid inflammation, No Other, No Redness ENT: No Ear pain, No Ear discharge, No Nose pain, No Nose discharge, No Nose congestion, No Mouth pain, No Mouth swelling, No Throat pain, No Throat swelling, No Other Cardiovascular: No Chest Pain, No Palpitations, No Orthopnea, No Paroxysmal Noc. Dyspnea; Edema; No Lt Headedness, No Other Respiratory: No Cough, No Dry, No Shortness of breath; SOB with excertion; No Wheezing, No Hemoptysis, No Pleuritic Pain, No Sputum, No Other Gastrointestinal: No Nausea, No Vomiting, No Abdominal Pain, No Diarrhea, No Constipation, No Melena, No Hematochezia, No Other Genitourinary: No Dysuria, No Frequency, No Incontinence, No Hematuria, No Retention, No Other Musculoskeletal: No other, No neck pain, No shoulder pain, No arm pain, No back pain, No hand pain; leg pain; No foot pain Skin: No Rash, No Lesions, No Jaundice, No Bruising; Other (mild nonspecific redness to legs, congestive ) Objective Vitals Vital Signs Date Time Temp Pulse Resp B/P (MAP) Pulse Ox O2 Delivery O2 Flow Rate FiO2 09/20/25 01:00 98.3 113 17 112/53 (72) 96 98.3 09/19/25 20:00 Nasal Cannula* 1 24 Intake/Output Intake and Output 09/20/25 07:00 Intake Total 800 ml Balance 800 ml Intake Oral 600 ml IV Total 200 ml # Voids 3 Medications Current Medications Medications Dose Ordered Sig/Ida Route Start Time Stop Time Status Last Admin Dose Admin Temazepam 15 mg QHSP PRN PO 09/15/25 16:30 09/19/25 21:30 15 MG Ondansetron HCl 4 mg Q4HP PRN IV 09/15/25 16:30 Docusate Sodium 100 mg BIDPRN PRN PO 09/15/25 16:30 Enoxaparin Sodium 40 mg DAILY SC 09/16/25 10:00 09/19/25 11:05 40 MG Acetaminophen 650 mg Q6HP PRN PO 09/15/25 16:30 Morphine Sulfate 2 mg Q4HPRN PRN IV 09/15/25 16:30 Nitroglycerin 0.4 mg Q5MINP PRN SL 09/15/25 16:30 Morphine Sulfate 2 mg Q30M PRN IV 09/15/25 16:30 Pantoprazole Sodium 40 mg DAILY@0600 PO 09/16/25 06:00 09/19/25 06:10 40 MG Ipratropium [place] 0.5 mg Q6HWA NEB 09/15/25 18:00 09/19/25 11:16 0.5 MG Levalbuterol HCl 0.625 mg Q6HWA PRN NEB 09/15/25 18:00 10/02/25 23:59 09/19/25 11:14 0.625 MG Atorvastatin Calcium 40 mg HS PO 09/15/25 22:00 09/19/25 21:06 40 MG Cyclobenzaprine HCl 5 mg Q8HPRN PRN PO 09/15/25 17:15 09/17/25 21:45 5 MG Mirtazapine 15 mg HS PO 09/15/25 22:00 09/19/25 21:06 15 MG Lidocaine 1 patch DAILY TOP 09/16/25 10:00 09/19/25 11:03 1 PATCH Vancomycin HCl 0 ml @ 0 mls/hr PER PHARMACY IV 09/15/25 17:15 Furosemide 80 mg BIDD IV 09/16/25 18:00 09/19/25 17:16 80 MG Guaifenesin/ Codeine Phosphate 10 ml Q6HPRN PRN PO 09/16/25 18:30 09/19/25 21:30 10 ML Bupropion HCl 150 mg DAILY@0700 PO 09/17/25 07:00 09/24/25 07:00 09/19/25 06:10 150 MG Vancomycin HCl 100 ml @ 200 mls/hr Q12H IV 09/17/25 21:00 09/19/25 21:06 200 MLS/HR Laboratory Results Laboratory Tests 09/16/25 05:00 09/19/25 06:01 Urinalysis Test 09/16/25 02:40 Urine Color Light-yellow (Yellow) Urine Clarity Clear (Clear) Urine pH 5.0 (5.0-9.0) Urine Specific [place] 1.008 (1.001-1.035) Urine Protein Negative (Negative) Urine Ketones Negative (Negative) Urine Blood Negative /uL (Negative) Urine Nitrite Negative (Negative) Urine Bilirubin Negative (Negative) Urine Urobilinogen Normal mg/dL (Negative) Urine Leukocyte Esterase 1+ /uL (Negative) Urine RBC <1 /hpf (0 - 4) Urine Microscopic WBC 1 /HPF (0-5) Urine Squamous Epithelial Cells Few /hpf (<5) Urine Bacteria None seen /hpf (None Seen) Urine Hyaline Casts Mod /lpf (0 - 2) Urine Glucose Normal mg/dL (Normal) Microbiology Microbiology Date/Time Source Procedure Growth Status 09/15/25 19:18 Blood Blood Culture - Preliminary NO GROWTH AFTER 72 HOURS OF INCUBATION. Resulted Labs and/or images reviewed: Labs reviewed by me, Image(s) reviewed by me Assessment/Plan Assessment/Plan Ms. Delcid, a 65-year-old female with a history of HFpEF, hypertension, copd /asthma, Dyslipidemia, GERD, obesity, schizophrenia, osteoarthritis, chronic low back pain, and depression presenting to the ED with bilateral lower extremity swelling for the past month, progressively worsening and more severe in the left leg. She reports associated redness, drainage, and shortness of breath. She denies chest pain, dizziness, fever, chills, numbness, or weakness. No prior surgeries, family history is noncontributory, and she denies tobacco, alcohol, or drug use. She arrived by wheelchair, symptoms began at rest, and no prehospital treatment was given. Differential diagnoses include electrolyte disorder, congestive heart failure, myocardial infarction, renal failure, angina, and pneumonia. # Acute bilateral leg swelling: Broad differentials include thromboembolic disease, CHF exacerbation, skin and soft tissue infections, vascular congestion, vascular insufficiency, medication side effects of home medication /amlodipine , associated shortness of breath, moderately score and Wells criteria, we will check D-dimer and bilateral leg DVT ultrasound. Check lactate, CK rule out compartment syndrome. Given risk of cellulitis in a complicated patient we will cover for now for Streptococcus and Staphylococcus with vancomycin. S/p ceftriaxone. # Sinus tachycardia: Denies chest pain, HR in 103, afebrile, otherwise Hemodynamically stable. if desaturates we will workup further for PE/DVT. telemetry # Normocytic anemia, presented: with hemoglobin of 10.5, RDW 15.8, unknown baseline, trend, reported no active bleeding. Check for iron panel With ferritin. stool occult, when possible (patient outside of lobby) rectal exam. # CKD versus TOM due to VMN: no known baseline, presumably 1.23, trend renal functions, check input output, avoid nephrotoxic. associated mild dehydration , likely prerenal with elevated BUN of 26, gentle hydration to continue for now # mild hyponatremia, 134, POA: likely hypovolumia, Gentle hydration to continue, rechecked tomorrow. # known HFpEF, acute on chronic: recheck ECHo, last in file 2015. prior history of HFpEF previously on furosemide 20 mg, recently was increased to 40 mg daily oral. No echo on file check echo, fluid restriction, salt restriction, further management based on assessment, in room air clinically not fluid overloaded. will hold, as needed IV 40 mg Lasix. # Likely CHF exacerbation. # Likely hypertensive heart disease: Moderate Cardiomegaly, noted in chest x- ray, leg swelling r/o acute CHF # bilateral pulmonary congestion: Unremarkable BNP, troponins negative, TSH WNL, echo, no known echo on file, viral pneumonia to rule out. # obesity grade 2: BMI 36.3, weight loss, lifestyle modification counseling. modify obesity, lipids and HbA1C. # known COPD/ asthma: no wheezing noted, in room air, subjective SOB, CXR unremarkable for CAP, check MRSA. as needed levalbuterol, ipratropium. # GERD on PPI: at home Omeprazole 20 mg, continue, iv ppi. # Known essential hypertension: Previously on lisinopril 10 mg change to losartan potassium 25 mg daily, metoprolol succinate 100 mg daily, amlodipine 10 mg daily, will hold antihypertensives, target BP 140/90 with cardiac diet. H olding as the BP softer, start when BP is elevated. # dyslipidemia on atorvastatin 20 mg daily: we will continue at 40 mg daily # depression / anxiety: Bupropion XL 150 mg daily: will use the 75 bid variant in hospital as alternative. # schizophrenia /history of psychosis: no active psychosis noted, Continue aripiprazole 20 mg from home medications, close monitoring. consider restarting NF. # psychiatric diagnosis complicated with insomnia: On mirtazapine 15 mg nighttime, to continue. # Chronic low back pain: Neuropathic, on cyclobenzaprine hydrochloride 10 mg t.i.d. as needed, physical therapy out of long-term ALOC heart rate during , 10 [place] previously as needed for pain control. # Delirium risk: higher, advanced age with multiple neuropsychiatric medications , medication reconcile along with delirium precautions. # Osteoarthritis: Likely age-related, mild stiffness/ pains, limited mobility issue, check PT before safe discharge, Consider Voltaren gel locally for pain management. lidocaine patches. pt is still on high supplemental O2 Plan discussed with: Patient Date of Service: Sep 17, 2025 Billing Provider: LENORA MEJISA DO Common Visit Codes: [id number] INP/OBS CARE(HIGH) LENORA MEJIAS DO Sep 20, 2025 01:35
--- NOTE | 2025-09-20 01:37 | DVHPN2 ---
Reviewed: Care Plan, H&P, Labs Changes from previous H/P or p: No Changes General: Per HPI Eyes: No Pain, No Vision change, No Conjunctivae inflammation, No Eyelid inflammation, No Other, No Redness ENT: No Ear pain, No Ear discharge, No Nose pain, No Nose discharge, No Nose congestion, No Mouth pain, No Mouth swelling, No Throat pain, No Throat swelling, No Other Cardiovascular: No Chest Pain, No Palpitations, No Orthopnea, No Paroxysmal Noc. Dyspnea; Edema; No Lt Headedness, No Other Respiratory: No Cough, No Dry, No Shortness of breath; SOB with excertion; No Wheezing, No Hemoptysis, No Pleuritic Pain, No Sputum, No Other Gastrointestinal: No Nausea, No Vomiting, No Abdominal Pain, No Diarrhea, No Constipation, No Melena, No Hematochezia, No Other Genitourinary: No Dysuria, No Frequency, No Incontinence, No Hematuria, No Retention, No Other Musculoskeletal: No other, No neck pain, No shoulder pain, No arm pain, No back pain, No hand pain; leg pain; No foot pain Skin: No Rash, No Lesions, No Jaundice, No Bruising; Other (mild nonspecific redness to legs, congestive ) Objective Vitals Vital Signs Date Time Temp Pulse Resp B/P (MAP) Pulse Ox O2 Delivery O2 Flow Rate FiO2 09/20/25 01:00 98.3 113 17 112/53 (72) 96 98.3 09/19/25 20:00 Nasal Cannula* 1 24 Intake/Output Intake and Output 09/20/25 07:00 Intake Total 800 ml Balance 800 ml Intake Oral 600 ml IV Total 200 ml # Voids 3 General Appearance: Alert, Oriented X3, Cooperative Cardiovascular: Regular rate, Normal S1, Normal S2 Musculoskeletal: Normal sensory function Medications Current Medications Medications Dose Ordered Sig/Ida Route Start Time Stop Time Status Last Admin Dose Admin Temazepam 15 mg QHSP PRN PO 09/15/25 16:30 09/19/25 21:30 15 MG Ondansetron HCl 4 mg Q4HP PRN IV 09/15/25 16:30 Docusate Sodium 100 mg BIDPRN PRN PO 09/15/25 16:30 Enoxaparin Sodium 40 mg DAILY SC 09/16/25 10:00 09/19/25 11:05 40 MG Acetaminophen 650 mg Q6HP PRN PO 09/15/25 16:30 Morphine Sulfate 2 mg Q4HPRN PRN IV 09/15/25 16:30 Nitroglycerin 0.4 mg Q5MINP PRN SL 09/15/25 16:30 Morphine Sulfate 2 mg Q30M PRN IV 09/15/25 16:30 Pantoprazole Sodium 40 mg DAILY@0600 PO 09/16/25 06:00 09/19/25 06:10 40 MG Ipratropium [place] 0.5 mg Q6HWA NEB 09/15/25 18:00 09/19/25 11:16 0.5 MG Levalbuterol HCl 0.625 mg Q6HWA PRN NEB 09/15/25 18:00 10/02/25 23:59 09/19/25 11:14 0.625 MG Atorvastatin Calcium 40 mg HS PO 09/15/25 22:00 09/19/25 21:06 40 MG Cyclobenzaprine HCl 5 mg Q8HPRN PRN PO 09/15/25 17:15 09/17/25 21:45 5 MG Mirtazapine 15 mg HS PO 09/15/25 22:00 09/19/25 21:06 15 MG Lidocaine 1 patch DAILY TOP 09/16/25 10:00 09/19/25 11:03 1 PATCH Vancomycin HCl 0 ml @ 0 mls/hr PER PHARMACY IV 09/15/25 17:15 Furosemide 80 mg BIDD IV 09/16/25 18:00 09/19/25 17:16 80 MG Guaifenesin/ Codeine Phosphate 10 ml Q6HPRN PRN PO 09/16/25 18:30 09/19/25 21:30 10 ML Bupropion HCl 150 mg DAILY@0700 PO 09/17/25 07:00 09/24/25 07:00 09/19/25 06:10 150 MG Vancomycin HCl 100 ml @ 200 mls/hr Q12H IV 09/17/25 21:00 09/19/25 21:06 200 MLS/HR Laboratory Results Laboratory Tests 09/16/25 05:00 09/19/25 06:01 Urinalysis Test 09/16/25 02:40 Urine Color Light-yellow (Yellow) Urine Clarity Clear (Clear) Urine pH 5.0 (5.0-9.0) Urine Specific [place] 1.008 (1.001-1.035) Urine Protein Negative (Negative) Urine Ketones Negative (Negative) Urine Blood Negative /uL (Negative) Urine Nitrite Negative (Negative) Urine Bilirubin Negative (Negative) Urine Urobilinogen Normal mg/dL (Negative) Urine Leukocyte Esterase 1+ /uL (Negative) Urine RBC <1 /hpf (0 - 4) Urine Microscopic WBC 1 /HPF (0-5) Urine Squamous Epithelial Cells Few /hpf (<5) Urine Bacteria None seen /hpf (None Seen) Urine Hyaline Casts Mod /lpf (0 - 2) Urine Glucose Normal mg/dL (Normal) Microbiology Microbiology Date/Time Source Procedure Growth Status 09/15/25 19:18 Blood Blood Culture - Preliminary NO GROWTH AFTER 72 HOURS OF INCUBATION. Resulted Assessment/Plan Assessment/Plan Ms. Delcid, a 65-year-old female with a history of HFpEF, hypertension, copd /asthma, Dyslipidemia, GERD, obesity, schizophrenia, osteoarthritis, chronic low back pain, and depression presenting to the ED with bilateral lower extremity swelling for the past month, progressively worsening and more severe in the left leg. She reports associated redness, drainage, and shortness of breath. She denies chest pain, dizziness, fever, chills, numbness, or weakness. No prior surgeries, family history is noncontributory, and she denies tobacco, alcohol, or drug use. She arrived by wheelchair, symptoms began at rest, and no prehospital treatment was given. Differential diagnoses include electrolyte disorder, congestive heart failure, myocardial infarction, renal failure, angina, and pneumonia. # Acute bilateral leg swelling: Broad differentials include thromboembolic disease, CHF exacerbation, skin and soft tissue infections, vascular congestion, vascular insufficiency, medication side effects of home medication /amlodipine , associated shortness of breath, moderately score and Wells criteria, we will check D-dimer and bilateral leg DVT ultrasound. Check lactate, CK rule out compartment syndrome. Given risk of cellulitis in a complicated patient we will cover for now for Streptococcus and Staphylococcus with vancomycin. S/p ceftriaxone. # Sinus tachycardia: Denies chest pain, HR in 103, afebrile, otherwise Hemodynamically stable. if desaturates we will workup further for PE/DVT. telemetry # Normocytic anemia, presented: with hemoglobin of 10.5, RDW 15.8, unknown baseline, trend, reported no active bleeding. Check for iron panel With ferritin. stool occult, when possible (patient outside of lobby) rectal exam. # CKD versus TOM due to VMN: no known baseline, presumably 1.23, trend renal functions, check input output, avoid nephrotoxic. associated mild dehydration , likely prerenal with elevated BUN of 26, gentle hydration to continue for now # mild hyponatremia, 134, POA: likely hypovolumia, Gentle hydration to continue, rechecked tomorrow. # known HFpEF, acute on chronic: recheck ECHo, last in file 2015. prior history of HFpEF previously on furosemide 20 mg, recently was increased to 40 mg daily oral. No echo on file check echo, fluid restriction, salt restriction, further management based on assessment, in room air clinically not fluid overloaded. will hold, as needed IV 40 mg Lasix. # Likely CHF exacerbation. # Likely hypertensive heart disease: Moderate Cardiomegaly, noted in chest x- ray, leg swelling r/o acute CHF # bilateral pulmonary congestion: Unremarkable BNP, troponins negative, TSH WNL, echo, no known echo on file, viral pneumonia to rule out. # obesity grade 2: BMI 36.3, weight loss, lifestyle modification counseling. modify obesity, lipids and HbA1C. # known COPD/ asthma: no wheezing noted, in room air, subjective SOB, CXR unremarkable for CAP, check MRSA. as needed levalbuterol, ipratropium. # GERD on PPI: at home Omeprazole 20 mg, continue, iv ppi. # Known essential hypertension: Previously on lisinopril 10 mg change to losartan potassium 25 mg daily, metoprolol succinate 100 mg daily, amlodipine 10 mg daily, will hold antihypertensives, target BP 140/90 with cardiac diet. H olding as the BP softer, start when BP is elevated. # dyslipidemia on atorvastatin 20 mg daily: we will continue at 40 mg daily # depression / anxiety: Bupropion XL 150 mg daily: will use the 75 bid variant in hospital as alternative. # schizophrenia /history of psychosis: no active psychosis noted, Continue aripiprazole 20 mg from home medications, close monitoring. consider restarting NF. # psychiatric diagnosis complicated with insomnia: On mirtazapine 15 mg nighttime, to continue. # Chronic low back pain: Neuropathic, on cyclobenzaprine hydrochloride 10 mg t.i.d. as needed, physical therapy out of long-term ALOC heart rate during , 10 [place] previously as needed for pain control. # Delirium risk: higher, advanced age with multiple neuropsychiatric medications , medication reconcile along with delirium precautions. # Osteoarthritis: Likely age-related, mild stiffness/ pains, limited mobility issue, check PT before safe discharge, Consider Voltaren gel locally for pain management. lidocaine patches. weaning down on O2, likely d/c within 24 hours if pt can maintain at 2-3 Liters Plan discussed with: Patient Date of Service: Sep 19, 2025 Billing Provider: LENORA MEJIAS DO Common Visit Codes: [id number] INP/OBS CARE(HIGH) LENORA MEJIAS DO Sep 20, 2025 01:37
--- NOTE | 2025-09-20 01:40 | DVHDS2 ---
Discharge Summary Date of Admission Sep 15, 2025 at 16:22 Date of Discharge: Sep 20, 2025 Labs/Diagnostic Data: Laboratory Results Test 09/19/25 08:30 09/19/25 06:01 09/16/25 05:00 09/16/25 02:40 Vancomycin Level Trough 12.0 ug/mL (5-10) White Blood Count 7.6 10^3/uL (4.4-10.8) Red Blood Count 3.26 10^6/uL (4.0-5.20) Hemoglobin 9.9 g/dL (12.2-16.2) Hematocrit 30.0 % (36.0-46.0) Mean Corpuscular Volume 92.1 fL (80.0-100.0) Mean Corpuscular Hemoglobin 30.4 pg (28.0-32.0) Mean Corpuscular Hemoglobin Concent 33.0 g/dL (32.0-36.0) Red Cell Distribution Width 16.1 % (11.8-14.3) Platelet Count 272 10^3/uL (140-450) Mean Platelet Volume 7.3 fL (6.9-10.8) Neutrophils (%) (Auto) 53.7 % (37.0-80.0) Lymphocytes (%) (Auto) 25.9 % (10.0-50.0) Monocytes (%) (Auto) 11.2 % (0.0-12.0) Eosinophils (%) (Auto) 8.3 % (0.0-7.0) Basophils (%) (Auto) 0.9 % (0.0-2.0) Neutrophils # (Auto) 4.1 10 ^3/uL (1.6-8.6) Lymphocytes # (Auto) 2.0 10 ^3/uL (0.4-5.4) Monocytes # (Auto) 0.9 10 ^3/uL (0-1.3) Eosinophils # (Auto) 0.6 10 ^3/uL (0-0.8) Basophils # (Auto) 0.1 10 ^3/uL (0-0.2) Nucleated Red Blood Cells 0.1 % Creatinine 1.00 mg/dL (0.550-1.02) Glomerular Filtration Rate Calc 63 mL/min (>90) Sodium Level 138 mmol/L (136-145) Potassium Level 3.7 mmol/L (3.5-5.1) Chloride Level 101 mmol/L (98-107) Carbon Dioxide Level 24 mmol/L (20-31) Anion Gap 13 (5-15) Blood Urea Nitrogen 23 mg/dL (9-23) BUN/Creatinine Ratio 19.7 (10.0-20.0) Serum Glucose 88 mg/dL (74-106) Calcium Level 9.5 mg/dL (8.7-10.4) Total Bilirubin 0.4 mg/dL (0.2-1.0) Aspartate Amino Transferase (AST) 43 U/L (13-40) Alanine Aminotransferase (ALT) 26 U/L (7-40) Alkaline Phosphatase 111 U/L (46-116) Total Protein 7.2 g/dL (5.7-8.2) Albumin 4.2 g/dL (3.2-4.8) Urine Color Light-yellow (Yellow) Urine Clarity Clear (Clear) Urine pH 5.0 (5.0-9.0) Urine Specific [place] 1.008 (1.001-1.035) Urine Protein Negative (Negative) Urine Ketones Negative (Negative) Urine Blood Negative /uL (Negative) Urine Nitrite Negative (Negative) Urine Bilirubin Negative (Negative) Urine Urobilinogen Normal mg/dL (Negative) Urine Leukocyte Esterase 1+ /uL (Negative) Urine RBC <1 /hpf (0 - 4) Urine Microscopic WBC 1 /HPF (0-5) Urine Squamous Epithelial Cells Few /hpf (<5) Urine Bacteria None seen /hpf (None Seen) Urine Hyaline Casts Mod /lpf (0 - 2) Urine Glucose Normal mg/dL (Normal) Urine Opiates Screen Neg (NEGATIVE) Urine Fentanyl Screen Neg (NEGATIVE) Urine Barbiturates Screen Neg (NEGATIVE) Urine Phencyclidine Screen Neg (NEGATIVE) Urine Amphetamines Screen Neg (NEGATIVE) Urine Benzodiazepines Screen Neg (NEGATIVE) Urine Cocaine Screen Neg (NEGATIVE) Urine Cannabinoids Screen Neg (NEGATIVE) Test 09/15/25 20:30 09/15/25 19:18 09/15/25 18:29 09/15/25 12:10 Influenza Type A Antigen Negative (Negative) Influenza Type B Antigen Negative (Negative) SARS-CoV-2 Antigen (Rapid) Negative (NEGATIVE) Lactic Acid Level 1.2 mmol/L (0.4-2.0) Prothrombin Time 10.5 sec (9.3-11.8) Prothrombin Time INR 0.99 (0.9-1.15) D-Dimer, Quantitative 2.05 mg/L FEU (0.0-0.49) Magnesium Level 2.4 mg/dL (1.6-2.6) Creatine Kinase 285 U/L (34-145) Troponin I High Sensitivity 5 ng/L (</=54) B-Type Natriuretic Peptide 25.18 pg/mL (0-100) Lipase 43 U/L (12-53) Thyroid Stimulating Hormone (TSH) 3.22 uIU/mL (0.55-4.78) Other Laboratory Tests 09/19/25 06:01 09/16/25 05:00 Brief Hx & Hospital Course: # Acute bilateral leg swelling: Broad differentials include thromboembolic disease, CHF exacerbation, skin and soft tissue infections, vascular congestion, vascular insufficiency, medication side effects of home medication /amlodipine , associated shortness of breath, moderately score and Wells criteria, we will check D-dimer and bilateral leg DVT ultrasound. Check lactate, CK rule out compartment syndrome. Given risk of cellulitis in a complicated patient we will cover for now for Streptococcus and Staphylococcus with vancomycin. S/p ceftriaxone. # Sinus tachycardia: Denies chest pain, HR in 103, afebrile, otherwise Hemodynamically stable. if desaturates we will workup further for PE/DVT. telemetry # Normocytic anemia, presented: with hemoglobin of 10.5, RDW 15.8, unknown baseline, trend, reported no active bleeding. Check for iron panel With ferritin. stool occult, [facility]. # CKD versus TOM due to VMN: no known baseline, presumably 1.23, trend renal functions, check input output, avoid nephrotoxic. associated mild dehydration , likely prerenal with elevated BUN of 26, gentle hydration to continue for now # mild hyponatremia, 134, POA: likely hypovolumia, Gentle hydration to continue, rechecked tomorrow. # known HFpEF, acute on chronic: recheck ECHo, last in file 2015. prior history of HFpEF previously on furosemide 20 mg, recently was increased to 40 mg daily oral. No echo on file check echo, fluid restriction, salt restriction, further management based on assessment, in room air clinically not fluid overloaded. will hold, as needed IV 40 mg Lasix. # Likely CHF exacerbation. # Likely hypertensive heart disease: Moderate Cardiomegaly, noted in chest x- ray, leg swelling r/o acute CHF # bilateral pulmonary congestion: Unremarkable BNP, troponins negative, TSH WNL, echo, no known echo on file, viral pneumonia to rule out. # obesity grade 2: BMI 36.3, weight loss, lifestyle modification counseling. modify obesity, lipids and HbA1C. # known COPD/ asthma: no wheezing noted, in room air, subjective SOB, CXR unremarkable for CAP, check MRSA. as needed levalbuterol, ipratropium. # GERD on PPI: at home Omeprazole 20 mg, continue, iv ppi. # Known essential hypertension: Previously on lisinopril 10 mg change to losartan potassium 25 mg daily, metoprolol succinate 100 mg daily, amlodipine 10 mg daily, will hold antihypertensives, target BP 140/90 with cardiac diet. H olding as the BP softer, start when BP is elevated. # dyslipidemia on atorvastatin 20 mg daily: we will continue at 40 mg daily # depression / anxiety: Bupropion XL 150 mg daily: will use the 75 bid variant in hospital as alternative. # schizophrenia /history of psychosis: no active psychosis noted, Continue aripiprazole 20 mg from home medications, close monitoring. consider restarting NF. # psychiatric diagnosis complicated with insomnia: On mirtazapine 15 mg nighttime, to continue. # Chronic low back pain: Neuropathic, on cyclobenzaprine hydrochloride 10 mg t.i.d. as needed, physical therapy out of long-term ALOC heart rate during , 10 [place] previously as needed for pain control. # Delirium risk: higher, advanced age with multiple neuropsychiatric medications , medication reconcile along with delirium precautions. # Osteoarthritis: Likely age-related, mild stiffness/ pains, limited mobility issue, check PT before safe discharge, Consider Voltaren gel locally for pain management. lidocaine patches. Condition at Discharge: Fair Final Diagnosis/Problems List hypoxia Discharge Disposition: Home Discharge Instruct/Medications Diet: Cardiac 2g Na,low cholest Activity: No Restrictions, As Tolerated Scheduled Amlodipine Besylate (Amlodipine Besylate), 10 MG PO DAILY, (Reported) Atorvastatin Calcium (Atorvastatin Calcium), 1 TAB PO DAILY, (Reported) Bupropion Hcl (Bupropion Hcl), 150 MG PO Q8HR, (Reported) Bupropion Hcl (Bupropion Hcl), 150 MG PO DAILY, (Reported) Clonidine Hydrochloride (Clonidine Hcl), 0.1 MG PO BID, (Reported) Duloxetine Hcl (Cymbalta), 1 CAP PO DAILY, (Reported) Furosemide (Furosemide), 20 MG PO DAILY, (Reported) Losartan Potassium (Losartan Potassium), 25 MG PO DAILY, (Reported) Metoprolol Tartrate (Metoprolol Tartrate), 100 MG PO DAILY, (Reported) Mirtazapine (Remeron), 1 TAB PO QPM, (Reported) Scheduled PRN Cyclobenzaprine Hcl (Cyclobenzaprine Hcl), 10 MG PO Q8HP PRN for AGITATION, (Reported) Miscellaneous Medications Aripiprazole (Abilify), 20 MG PO, (Reported) Gabapentin (Gabapentin), 300 MG PO, (Reported) Discharge Statement: "Patient was advised to return to the ER or call 911 if any headaches, dizziness, shortness of breath, chest pain, abdominal pain, bleeding, fevers, or worsening of medical condition. Patient was counseled about treatment plan, medications, possible side effects, patientverbalized understanding. All questions were answered to the best of my ability. This discharge took greater then 30 minutes in planning, reviewing documentation, counseling the patient, and discussing with other team members." ASSESSMENT ASSESSMENT Assessment hypoxia Date of Service: Sep 20, 2025 Billing Provider: LENORA MEJIAS DO Common Visit Codes: 73190-VOQ/OBS DISCH DAY >30min LENORA MEJIAS DO Sep 20, 2025 01:40
[2025-09-20 07:28] LABS: Hematocrit 31.0 % (36.0-46.0); Hemoglobin 10.3 g/dL (12.2-16.2); Mean Corpuscular Hemoglobin 30.8 pg (28.0-32.0); Mean Corpuscular Volume 92.9 fL (80.0-100.0); Nucleated Red Blood Cells % 0.1 %
== END 2025-09-20 11:54 | disposition home or self-care (01) | DRG 602 ==
LOC: ER 09:46 → EDSEX 16:22 → OVERFLOW 16:22 → TELE-WESTW 16:43
PROVIDERS: ADMIT Internal Medicine; ATTEND Internal Medicine
DX: L03.116 Cellulitis of left lower limb (principal); I50.33 Acute on chronic diastolic (congestive) heart failure; N17.0 Acute kidney failure with tubular necrosis; I13.0 Hypertensive heart and chronic kidney disease with heart failure and stage 1 through stage 4 chronic kidney disease, or unspecified chronic kidney disease; B95.8 Unspecified staphylococcus as the cause of diseases classified elsewhere; B95.5 Unspecified streptococcus as the cause of diseases classified elsewhere; L03.115 Cellulitis of right lower limb; L02.419 Cutaneous abscess of limb, unspecified; D64.9 Anemia, unspecified; F32.A Depression, unspecified; F20.9 Schizophrenia, unspecified; E66.812 Obesity, class 2; J44.89 Other specified chronic obstructive pulmonary disease; N18.9 Chronic kidney disease, unspecified; E87.1 Hypo-osmolality and hyponatremia; Z16.21 Resistance to vancomycin; G47.00 Insomnia, unspecified; E78.5 Hyperlipidemia, unspecified; K21.9 Gastro-esophageal reflux disease without esophagitis; I87.2 Venous insufficiency (chronic) (peripheral); M54.50 Low back pain, unspecified; G89.29 Other chronic pain; G62.9 Polyneuropathy, unspecified; F41.9 Anxiety disorder, unspecified; Z20.822 Contact with and (suspected) exposure to COVID-19; Z79.899 Other long term (current) drug therapy; Z82.49 Family history of ischemic heart disease and other diseases of the circulatory system; Z83.3 Family history of diabetes mellitus; Z68.36 Body mass index [BMI] 36.0-36.9, adult
CPT/HCPCS: 36415; 71046; 76700; 80053; 80202; 80307; 81001; 82550; 82565; 83605; 83690; 83735; 83880; 84443; 84484; 85025; 85379; 85610; 87040; 87426; 87804; 93306; 93970; 94640; 96365; 96375; 97110; 97116; 97163; G0378; J2405

== ENCOUNTER 2025-10-15 16:49 | Inpatient (IN) | payer OTHER, MEDICAID ==
[~2025-10-15] VITALS: Ht 157.5 cm; Wt 94.5 kg
[~2025-10-15 16:49] MED LIST: AMLO1TAB22 PO; AMLO1TAB23 PO; ARIP20TA4 PO; ATOR20TA50 PO; BUPR-346 PO; BUPR150T18 PO; CLON0.1T PO; CYCL-611 PO; CYCL-839 PO; DULO20CA PO; FURO20TA3 PO; FURO40TA4 PO; GABA-1250 PO; LOSA-533 PO; MET50T PO; METO-159 PO; MIRT-94 PO; MIRT1TAB38 PO; OMEG-86 PO; POTA-228 PO
[2025-10-15 18:53] LABS: Hematocrit 30.1 % (36.0-46.0); Hemoglobin 9.7 g/dL (12.2-16.2); Mean Corpuscular Hemoglobin 29.5 pg (28.0-32.0); Mean Corpuscular Volume 91.4 fL (80.0-100.0); Nucleated Red Blood Cells % 0.1 %
[2025-10-15 19:11] LABS: Alanine Aminotransferase 39 U/L (7-40); Albumin 4.3 g/dL (3.2-4.8); Alkaline Phosphatase 113 U/L (46-116); Anion Gap 16 (5-15); BUN/Creatinine Ratio 16.0 (10.0-20.0); Bilirubin, Total 0.2 mg/dL (0.2-1.0); Blood Urea Nitrogen 79 mg/dL (9-23); Calcium 9.2 mg/dL (8.7-10.4); Carbon Dioxide 19 mmol/L (20-31); Chloride 98 mmol/L (98-107); Glucose 79 mg/dL (74-106); Potassium 4.9 mmol/L (3.5-5.1); Sodium 133 mmol/L (136-145); Total Protein 7.7 g/dL (5.7-8.2)
--- NOTE | 2025-10-15 19:17 | ED.PDOC ---
Musculoskeletal HPI Comments 65-year-old female who came to ER for bilateral lower extremity swelling. Patient does have history of hypertension, CHF, COPD. Has been complaining of bilateral lower extremity swelling, pain, with weeping wounds on both legs for the past month. Noted shortness of breath. Denies any acute chest pains at this time of care. Denies any fever. Chief Complaint: Lower Extremity Time Seen by MD: 19:17 Reviewed Notes: Nurses Notes Allergies: Coded Allergies: NO KNOWN ALLERGIES (Unverified , 09/15/25) Home Meds Reported Medications Cyclobenzaprine Hcl (Cyclobenzaprine Hcl) 10 Mg Tab, 10 MG PO Q8HP PRN for AGITATION for 30 Days, MG 09/16/25 Aripiprazole (Abilify) 20 Mg Tab, 20 MG PO, TAB 09/16/25 Gabapentin (Gabapentin) 300 Mg Cap, 300 MG PO for 30 Days, MG 09/16/25 Losartan Potassium (Losartan Potassium) 25 Mg Tab, 25 MG PO DAILY for 30 Days, MG 09/16/25 Bupropion Hcl (Bupropion Hcl) 100 Mg Tab, 150 MG PO DAILY for 30 Days, MG 09/16/25 Bupropion Hcl (Bupropion Hcl) 100 Mg Tab, 150 MG PO Q8HR for 30 Days, MG 09/16/25 Atorvastatin Calcium (ATORVASTATIN CALCIUM) 20 Mg Tab, 1 TAB PO DAILY, #30 TAB 5 Refills 09/16/25 Furosemide (Furosemide) 20 Mg Tab, 20 MG PO DAILY for 30 Days, MG 09/16/25 Duloxetine Hcl (Cymbalta) 20 Mg Cap, 1 CAP PO DAILY, #30 CAP 2 Refills 09/16/25 Mirtazapine (REMERON) 30 Mg Tab, 1 TAB PO QPM, #30 TAB 1 Refill 09/16/25 Clonidine Hydrochloride (Clonidine Hcl) 0.1 Mg Tab, 0.1 MG PO BID for 30 Days, MG 09/16/25 Metoprolol Tartrate (Metoprolol Tartrate) 100 Mg Tab, 100 MG PO DAILY for 30 Days, MG 09/16/25 Amlodipine Besylate (Amlodipine Besylate) 5 Mg Tab, 10 MG PO DAILY for 30 Days, MG 09/16/25 Information Source: Patient Mode of Arrival: EMS Past Medical History PAST MEDICAL HISTORY: CHF, COPD, Depression, HTN, Schizophrenia Surgical History: Denies all surgeries Family History Family History: Reviewed,noncontributory to illness Social History Smoker: Non-Smoker Alcohol: Denies ETOH Use Drugs: Denies Drug Use Lives In: Home Constitutional: denies: chills, diaphoresis, fatigue, fever, malaise, sweats, weakness, others EENTM: denies: blurred vision, double vision, ear bleeding, ear discharge, ear drainage, ear pain, ear ringing, eye pain, eye redness, hearing loss, mouth p ain, mouth swelling, nasal discharge, nose bleeding, nose congestion, nose pain, photophobia, tearing, throat pain, throat swelling, voice changes, others Respiratory: denies: cough, hemoptysis, orthopnea, SOB at rest, shortness of br eath, SOB with excertion, stridor, wheezing, others Cardiovascular: denies: chest pain, dizzy spells, diaphoresis, Dyspnea on exertion, edema, irregular heart beat, left arm pain, lightheadedness, palpitations, PND, syncope, others Gastrointestinal: denies: abdomen distended, abdominal pain, blood streaked bowels, constipated, diarrhea, dysphagia, difficulty swallowing, hematemesis, melena, nausea, poor appetite, poor fluid intake, rectal bleeding, rectal pain, vomiting, others Genitourinary: denies: abnormal vagina bleeding, burning, dyspareunia, dysuria, flank pain, frequency, hematuria, incontinence, pain, , vagina discharge, urgency, others Neurological: denies: dizziness, fainting, headache, left sided numbness, left sided weakness, numbness, paresthesia, pre-existing deficit, right sided numbness, right sided weakness, seizure, speech problems, tingling, tremors, weakness, others Musculoskeletal: reports: others (Worsening bipedal edema); denies: back pain, gout, joint pain, joint swelling, muscle pain, muscle stiffness, neck pain Integumetry: reports: wounds (Weeping wounds both legs); denies: bruises, change in color, change in hair/nails, dryness, laceration, lesions, lumps, rash, others Allergic/Immunocompromised: denies: Difficulty Healing, Frequent Infections, Hives, Itching, others Hematologic/Lymphatic: denies: anemia, blood clots, easy bleeding, easy bruising, swollen glands, others Endocrine: denies: excessive hunger, excessive sweating, excessive thirst, excessive urination, flushing, intolerance to cold, intolerance to heat, unexplained weight gain, unexplained weight loss, others Psychiatric: denies: anxiety, bipolar disorder, depression, hopeless, panic disorder, schizophrenia, sleepless, suicidal, others Physical Exam General Appearance: No Apparent Distress, Normal HEENT: Normal ENT Inspection, Pharynx Normal, TMs Normal Neck: Full Range of Motion, Non-Tender, Normal, Normal Inspection Respiratory: Chest Non-Tender, Lungs Clear, No Accessory Muscle Use, No Respiratory Distress, Normal Breath Sounds Cardiovascular: No Edema, No JVD, No Murmur, No Gallop, Normal Peripheral Pulses, Regular Rate/Rhythm Breast Exam: Deferred Gastrointestinal: No Organomegaly, Non Tender, No Pulsatile Mass, Normal Bowel Sounds, Soft Genitalia: Deferred Pelvic: Deferred Rectal: Deferred Extremities: No calf tenderness, Normal capillary refill, Normal range of motion, No pedal edema, Pedal edema Musculoskeletal : Apperance: Normal Neurologic: Alert, hydrotreater operator II-XII nml as Tested, No Motor Deficits, Normal Affect, Normal Mood, No Sensory Deficits Cerebellar Function: Normal Reflexes: Normal Skin: Dry, Normal Color, Warm Lymphatic: No Adenopathy Was a procedure done? Was a procedure done?: No Differential Diagnosis EXT Differential Diagnosis: Cellulitis, CHF, Deep Vein Thrombosis X-Ray, Labs, Meds, VS Vital Signs Date Time Temp Pulse Resp B/P (MAP) Pulse Ox O2 Delivery O2 Flow Rate FiO2 10/15/25 16:55 97.5 72 18 98/66 96 97.5 10/15/25 16:49 74 Lab Test 10/15/25 18:36 Range/Units White Blood Count 10.6 4.4-10.8 10^3/uL Red Blood Count 3.29 L 4.0-5.20 10^6/uL Hemoglobin 9.7 L 12.2-16.2 g/dL Hematocrit 30.1 L 36.0-46.0 % Mean Corpuscular Volume 91.4 80.0-100.0 fL Mean Corpuscular Hemoglobin 29.5 28.0-32.0 pg Mean Corpuscular Hemoglobin Concent 32.3 32.0-36.0 g/dL Red Cell Distribution Width 18.9 H 11.8-14.3 % Platelet Count 268 140-450 10^3/uL Mean Platelet Volume 6.8 L 6.9-10.8 fL Neutrophils (%) (Auto) 79.4 37.0-80.0 % Lymphocytes (%) (Auto) 9.1 L 10.0-50.0 % Monocytes (%) (Auto) 6.0 0.0-12.0 % Eosinophils (%) (Auto) 5.1 0.0-7.0 % Basophils (%) (Auto) 0.4 0.0-2.0 % Neutrophils # (Auto) 8.4 1.6-8.6 10 ^3/uL Lymphocytes # (Auto) 1.0 0.4-5.4 10 ^3/uL Monocytes # (Auto) 0.6 0-1.3 10 ^3/uL Eosinophils # (Auto) 0.5 0-0.8 10 ^3/uL Basophils # (Auto) 0 0-0.2 10 ^3/uL Nucleated Red Blood Cells 0.1 % Sodium Level 133 L 136-145 mmol/L Potassium Level 4.9 3.5-5.1 mmol/L Chloride Level 98 98-107 mmol/L Carbon Dioxide Level 19 L 20-31 mmol/L Anion Gap 16 H 5-15 Blood Urea Nitrogen 79 H 9-23 mg/dL Creatinine 4.95 H 0.550-1.02 mg/dL Glomerular Filtration Rate Calc 9 >90 mL/min BUN/Creatinine Ratio 16.0 10.0-20.0 Serum Glucose 79 74-106 mg/dL Calcium Level 9.2 8.7-10.4 mg/dL Total Bilirubin 0.2 0.2-1.0 mg/dL Aspartate Amino Transferase (AST) 62 H 13-40 U/L Alanine Aminotransferase (ALT) 39 7-40 U/L Alkaline Phosphatase 113 46-116 U/L Troponin I High Sensitivity 4 </=34 ng/L B-Type Natriuretic Peptide 102.76 0-100 pg/mL Total Protein 7.7 5.7-8.2 g/dL Albumin 4.3 3.2-4.8 g/dL Time of 1ST Reevaluation: 19:09 Reevaluation 1ST: Unchanged Patient Education/Counseling: Diagnosis, Treatment Family Education/Counseling: No Family Present Departure 1 Departure Time of Disposition: 19:54 Impression: Primary Impression: Venous stasis dermatitis of both lower extremities Additional Impression: Renal failure, acute Disposition: 09 ADMITTED INPATIENT Admit to: Tele Condition: Guarded Discharged With: Self Comments 65 yo female with BLE swelling, appears to be venous stasis. However, on lab review she appears to be in acute renal failure with high creatinine of 4.5 and this is new for her. Patient will need admission for supportive care, further workup and nephrology consultation Critical Care Note Critical Care Time?: Yes (45 min-critical care time only) Critical care comment: Total critical care time: Approximately 36 minutes Due to a high probability of clinically significant, life threatening deterioration, the patient required my highest level of preparedness to intervene emergently and I personally spent this critical care time directly and personally managing the patient. This critical care time included obtaining a history; examining the patient; pulse oximetry; ordering and review of studies; arranging urgent treatment with development of a management plan; evaluation of patient's response to treatment; frequent reassessment; and, discussions with other providers. This critical care time was performed to assess and manage the high probability of imminent, life-threatening deterioration that could result in multi-organ failure. It was exclusive of separately billable procedures and treating other patients. Stability Stability form required: No Heart Score Heart Score: Heart Score Response (Comments) Value History N/A 0 EKG N/A 0 Age N/A 0 Risk Factors N/A 0 Troponin N/A 0 Total 0 I personally scribed for KRISTEN DAILY MD ([email or web address]) on 10/15/25 at 19:17. Electronically submitted by Chang Corrigan ([email or web address]). KRISTEN DAIYL MD Oct 15, 2025 19:17
--- NOTE | 2025-10-15 21:12 | DVH ---
CHEST RADIOGRAPH INDICATION: SOB TECHNIQUE: Single frontal view of the chest was obtained COMPARISON: XY CHEST TWO VIEWS ROUTINE on DOS: 09/15/25 FINDINGS/IMPRESSION: Mild prominence of the interstitial markings. Unchanged enlarged cardiomediastinal silhouette. No pleural effusion or pneumothorax. No acute osseous abnormality.
--- NOTE | 2025-10-15 21:57 | DVHHPRES ---
History of Present Illness Resident Creating Document: KIMBERLYN DEMPSEY RESIDENT History of Present Illness Ms. Delcid, a 65-year-old female with a history of HFpEF, hypertension, copd /asthma not on home oxygen, Dyslipidemia, GERD, pulmonary hypertension, obesity, schizophrenia, osteoarthritis, chronic low back pain, and depression presenting to the ED with the complaints of bilateral leg swelling, redness and skin excoriations. She reports being admitted in the hospital 1 month ago with the same complaints. The wound was noted to have serous weeping or exudates. Skin appears dry or cracked and brownish crust present. She also reports having shortness of breath, improves on coughing up and sitting up. Shortness of breathe worsens when lying down. She has been sleeping on the living room couch due to orthopnea. She reports having dry cough. The patient uses walker,wheelchair and cane for ambulation due to inability to walk followed by spinal surgeries. The patient has constipation, sometimes she needs medications. She had a colonoscopy She denies any chest pain, fever, urinary symptoms, recent sick contacts or any other complaints at this time. Past medical history: As above Past surgical history: Vertebral disc prolapse surgery, level not specified Allergies: None Smokin years. Quit 2-3 years ago Alcohol: 3 beer cans per day Drugs: Never Code status: Full code Review of Systems Skin: Rash Allergies: Coded Allergies: NO KNOWN ALLERGIES (Unverified , 09/15/25) Exam Vital Signs Vital Signs Date Time Temp Pulse Resp B/P (MAP) Pulse Ox O2 Delivery O2 Flow Rate FiO2 10/15/25 19:30 96.7 81 12 97/50 (66) 94 96.7 10/15/25 19:30 Room Air* 0 21 Exam Pt is lying on bed General Appearance: Alert, Oriented X3, Cooperative, Mild distress HEENT: Atraumatic, Mucous membranes moist/pink Respiratory: Clear to auscultation, Normal air movement, No added sounds Cardiovascular: Regular rate, Normal S1, Normal S2, No murmurs Abdominal/ : Active bowel sounds, Soft, no distention, no tenderness Extremities: No edema, Normal pulses, No tenderness/swelling Skin: Bilateral lower extremity diffuse erythema with ill-defined borders, overlying thick yellow brown crusting, scaling and lichenification. Areas of serous weeping or exudate noted. Skin appears dry, cracked and hyperkeratotic in multiple areas. Neuro: Normal speech, sensorimotor deficits none Psych/Mental Status: Mental status NL, Mood NL Nurse was there as annealing furnace tender during examination Labs/Xrays Labs Test 10/15/25 18:36 Range/Units White Blood Count 10.6 4.4-10.8 10^3/uL Red Blood Count 3.29 L 4.0-5.20 10^6/uL Hemoglobin 9.7 L 12.2-16.2 g/dL Hematocrit 30.1 L 36.0-46.0 % Mean Corpuscular Volume 91.4 80.0-100.0 fL Mean Corpuscular Hemoglobin 29.5 28.0-32.0 pg Mean Corpuscular Hemoglobin Concent 32.3 32.0-36.0 g/dL Red Cell Distribution Width 18.9 H 11.8-14.3 % Platelet Count 268 140-450 10^3/uL Mean Platelet Volume 6.8 L 6.9-10.8 fL Neutrophils (%) (Auto) 79.4 37.0-80.0 % Lymphocytes (%) (Auto) 9.1 L 10.0-50.0 % Monocytes (%) (Auto) 6.0 0.0-12.0 % Eosinophils (%) (Auto) 5.1 0.0-7.0 % Basophils (%) (Auto) 0.4 0.0-2.0 % Neutrophils # (Auto) 8.4 1.6-8.6 10 ^3/uL Lymphocytes # (Auto) 1.0 0.4-5.4 10 ^3/uL Monocytes # (Auto) 0.6 0-1.3 10 ^3/uL Eosinophils # (Auto) 0.5 0-0.8 10 ^3/uL Basophils # (Auto) 0 0-0.2 10 ^3/uL Nucleated Red Blood Cells 0.1 % Sodium Level 133 L 136-145 mmol/L Potassium Level 4.9 3.5-5.1 mmol/L Chloride Level 98 98-107 mmol/L Carbon Dioxide Level 19 L 20-31 mmol/L Anion Gap 16 H 5-15 Blood Urea Nitrogen 79 H 9-23 mg/dL Creatinine 4.95 H 0.550-1.02 mg/dL Glomerular Filtration Rate Calc 9 >90 mL/min BUN/Creatinine Ratio 16.0 10.0-20.0 Serum Glucose 79 74-106 mg/dL Calcium Level 9.2 8.7-10.4 mg/dL Total Bilirubin 0.2 0.2-1.0 mg/dL Aspartate Amino Transferase (AST) 62 H 13-40 U/L Alanine Aminotransferase (ALT) 39 7-40 U/L Alkaline Phosphatase 113 46-116 U/L Troponin I High Sensitivity 4 </=34 ng/L B-Type Natriuretic Peptide 102.76 0-100 pg/mL Total Protein 7.7 5.7-8.2 g/dL Albumin 4.3 3.2-4.8 g/dL SEPSIS Sepsis Screen Date sepsis recognized/suspect: Oct 15, 2025 Time Sepsis recognized/suspect: 1929 Recent Procedure: No On Antibiotic Therapy: No Respiratory Rate >20: No Heart Rate >90: No Temp<36 C (96.8 F) or >38.3 C: No SBP <90 or MAP <65 mmHG: No New Acute Mental Status Change: No Is the patient on CPAP, BIPAP,: No Physician Orders Electrocardigram (10/15/25 18:15) Chest Xray 1 View (10/15/25 19:27) Admit (10/15/25 21:48) Allergies (10/15/25 21:48) Code Status (10/15/25 21:48) Oxygen Per Hour (10/15/25 21:48) Complete Blood Count (10/16/25 04:00) Comprehensive Metabolic Panel (10/16/25 04:00) Cardiac Diet-2gna,Lofat,Lochol (10/16/25 Breakfast) Sequential Compression Device (10/15/25 ) Notify Of Changes From Base (10/15/25 21:48) Lt Lower Dvt (10/15/25 21:48) Rt Lower Dvt (10/15/25 21:48) Urinalysis (10/15/25 21:48) Vital Signs Date Time Temp Pulse Resp B/P (MAP) Pulse Ox O2 Delivery O2 Flow Rate FiO2 10/15/25 19:30 96.7 81 12 97/50 (66) 94 96.7 10/15/25 19:30 Room Air* 0 21 10/15/25 16:55 97.5 72 18 98/66 96 97.5 10/15/25 16:49 74 Laboratory Tests Test 10/15/25 18:36 White Blood Count 10.6 10^3/uL (4.4-10.8) Assessment/Plan Assessment/Plan Cellulitis -IV clindamycin -lower extremity DVT ultrasound ordered Heart failure with preserved ejection fraction Hypertensive heart disease Sinus tachycardia - Denies chest pain, afebrile, otherwise Hemodynamically stable. if desaturates we will workup further for PE/DVT. telemetry -BNP 102.76. -EKG reviewd, no acute ishchemic changes -Echo in September,: Ejection fraction 65 % with normal RV function. Moderate TR with a RV systolic pressure 40 mm Hg. Left atrial enlargement. Rest of the findings normal. -GDMT held due to hypotension. -antihypertensives held due to hypotension TOM likely due to VMN on CKD -Creatinine 4.95, BUN 79. Transaminitis -Follow up labs Normocytic normochromic anemia with elevated RDW Most likely secondary to CKD Hemoglobin 9.7 Hematocrit 30 RDW 18.9 Iron panel, reticulocyte count and vitamin B12 ordered, pending results. Known COPD/ asthma no wheezing noted, in room air CXR unremarkable for CAP Check MRSA, COVID-19, flu. As needed levalbuterol, ipratropium. GI prophylaxis: Pantoprazole DVT prophylaxis: SCDs Diet: Renal diet Goals of care discussed with the patient for more than 27 minutes: Full code status Case discussed with Dr. Hernandez, patient and RN Plan discussed with: Patient, Other (RN) My Orders Orders - KIMBERLYN DEMPSEY RESIDENT Procedure Category Date Status Time Admit ADMIT 10/15/25 Transmitted 21:48 Allergies ALINE 10/15/25 In Process 21:48 Code Status CODE 10/15/25 Transmitted 21:48 Oxygen Per Hour RT 10/15/25 Transmitted 21:48 Complete Blood Count LAB 10/16/25 Verified 04:00 Comprehensive LAB 10/16/25 Verified Metabolic Panel 04:00 Cardiac DIET 10/16/25 Transmitted Diet-2gna,Lofat,Lochol Breakfast Sequential ALINE 10/15/25 In Process Compression Device Notify Of Changes ALINE 10/15/25 In Process From Base 21:48 Lt Lower Dvt US 10/15/25 Logged 21:48 Rt Lower Dvt US 10/15/25 Logged 21:48 Urinalysis LAB 10/15/25 Logged 21:48 Visit Coding STANDARD RES Billing Provider: VENESSA HERNANDEZ MD Date of Service if different f: Oct 15, 2025 Common Visit Codes: 48477-DRQZPRO INP/OBS CARE (HIGH) Secondary Visit Codes: 87303-VGSAWFJQ CARE PLAN 30 MINUTES KIMBERLYN DEMPSEY RESIDENT Oct 15, 2025 21:56
--- NOTE | 2025-10-15 22:55 | DVH ---
CLINICAL HISTORY: Rule out DVT. TECHNIQUE: Grayscale, color, and spectral Doppler images of the bilateral lower extremities veins. Vessel compression if possible was also performed. COMPARISON: US BILAT LOWER DVT on DOS: 09/15/25. FINDINGS: RIGHT: There is normal compressibility and phasic flow in the common femoral, saphenous, superficial femoral, and popliteal veins. LEFT: There is normal compressibility and phasic flow in the common femoral, saphenous, superficial femoral, and popliteal veins. OTHER: Mild subcutaneous edema of the bilateral lower extremities. IMPRESSION: No evidence of lower extremity deep venous thrombosis.
[2025-10-16] VITALS (19 sets, daily range): BP systolic 99–127; BP diastolic 50–96; PULSE 93–118; RESP 14–22; TEMP 97.5–98.5; O2SAT 92–100
[2025-10-16 04:56] LABS: Hematocrit 26.9 % (36.0-46.0); Hemoglobin 8.6 g/dL (12.2-16.2); Mean Corpuscular Hemoglobin 29.4 pg (28.0-32.0); Mean Corpuscular Volume 91.6 fL (80.0-100.0); Nucleated Red Blood Cells % 0.1 %
[2025-10-16 05:16] LABS: Alanine Aminotransferase 27 U/L (7-40); Albumin 3.6 g/dL (3.2-4.8); Alkaline Phosphatase 87 U/L (46-116); Anion Gap 13 (5-15); BUN/Creatinine Ratio 18.0 (10.0-20.0); Carbon Dioxide 23 mmol/L (20-31); Chloride 101 mmol/L (98-107); Potassium 4.2 mmol/L (3.5-5.1); Sodium 137 mmol/L (136-145); Total Protein 6.6 g/dL (5.7-8.2)
[2025-10-16 05:17] LABS: Bilirubin, Total 0.2 mg/dL (0.2-1.0); Blood Urea Nitrogen 71 mg/dL (9-23); Calcium 8.6 mg/dL (8.7-10.4); Glucose 66 mg/dL (74-106); Iron 33.0 ug/dL (50-170); Total Iron Binding Capacity 288.0 ug/dL (250-425)
[2025-10-16] MEDS: CLINDAMYCIN 600MG IV 50 ML IV SCH (06:58)
[2025-10-16] MEDS: ALBUTEROL SULF 2.5 MG/0.5ML(0.5%) NEB SOLN ONE (07:43)
[2025-10-16] MEDS: IPRATROPIUM BROM 0.5 MG/2.5ML INH SOL NEB ONE (07:43)
[2025-10-16] MEDS: IPRATROPIUM BROM 0.5 MG/2.5ML INH SOL ONE (07:43)
[2025-10-16] MEDS: ALBUTEROL SULF 2.5 MG/0.5ML(0.5%) NEB SOLN NEB ONE (07:43)
[2025-10-16] MEDS: DEXTROSE (50%) 50ML SYRG IV ONE (07:45)
[2025-10-16] MEDS: ACETAMINOPHEN 325 MG TAB PO ONE (08:09)
[2025-10-16] MEDS: SODIUM CHLORIDE 0.9% 500 ML IV ONE ×2 (08:10→13:17)
[2025-10-16 08:15] LABS: INR 1.0 (0.9-1.15); Partial Thromboplastin Time 28.0 SEC (24.5-34.5); Prothrombin Time 10.6 sec (9.3-11.8)
--- NOTE | 2025-10-16 09:15 | DVH ---
EXAM DESCRIPTION: RENAL ULTRASOUND CLINICAL HISTORY: TOM on CKD COMPARISON: US ABDOMEN COMPLETE SONOGRAM on DOS: 09/15/25 TECHNIQUE: Multiplanar ultrasound examination of the kidneys and urinary bladder was performed. FINDINGS: The right kidney measures 9.9 cm. No renal calculus. No hydronephrosis.. 9mm non shadowing echogenic lesion in the right renal cortex, likely an angiomyolipoma. The left kidney measures 8.7 cm. No renal calculus. No hydronephrosis.. No solid renal masses. The echogenicity of the kidneys is within normal limits. Prevoid images of the bladder are unremarkable. IMPRESSION: 1. No hydronephrosis. 2. 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
[2025-10-16] MEDS: IPRATROPIUM BROM 0.5 MG/2.5ML INH SOL NEB SCH (09:47)
[2025-10-16 10:30] LABS: Hematocrit 27.4 % (36.0-46.0); Hemoglobin 8.7 g/dL (12.2-16.2)
--- NOTE | 2025-10-16 10:44 | DVHPN2 ---
Subjective 65-year-old female with a history of heart failure with preserved ejection fraction, COPD, dyslipidemia, GERD, pulmonary hypertension, obesity, schizophrenia, osteoarthritis, chronic low back pain comes with chief complaint of bilateral leg pain and swelling and redness She is also complaining of shortness of breaths She says she has oxygen at home she uses PRN She has congestion and cough Changes from previous H/P or p: Changes Skin: Rash Objective Vitals Vital Signs Date Time Temp Pulse Resp B/P (MAP) Pulse Ox O2 Delivery O2 Flow Rate FiO2 10/16/25 09:53 94 20 100 10/16/25 09:47 Nasal Cannula* 2 28 10/16/25 08:34 98.5 117/96 (103) 98.5 General Appearance: Alert, Oriented X3, Cooperative, No acute distress Lungs: Other (Bilateral rhonchi) Cardiovascular: Regular rate, Normal S1, Normal S2, No murmurs Abdomen: Normal bowel sounds, Soft, No tenderness Extremities: No edema Medications Current Medications Medications Dose Ordered Sig/Ida Route Start Time Stop Time Status Last Admin Dose Admin Clindamycin Phosphate 50 ml @ 50 mls/hr Q8HR IV 10/16/25 06:00 10/16/25 06:58 50 MLS/HR Pantoprazole Sodium 40 mg DAILY IV 10/16/25 10:00 Iron Sucrose 110 ml @ 110 mls/hr DAILY@1200 IV 10/16/25 12:00 10/20/25 11:59 Acetaminophen 650 mg Q6HP PRN PO 10/16/25 07:30 Albuterol 2.5 mg Q4HPRN PRN NEB 10/16/25 07:45 Ipratropium Bylas 0.5 mg Q4HR NEB 10/16/25 10:00 10/16/25 09:47 0.5 MG Laboratory Results Laboratory Tests 10/16/25 04:22 Chemistry Test 10/15/25 18:36 10/16/25 04:22 Albumin 4.3 g/dL (3.2-4.8) 3.6 g/dL (3.2-4.8) Calcium Level 9.2 mg/dL (8.7-10.4) 8.6 mg/dL (8.7-10.4) L Total Protein 7.7 g/dL (5.7-8.2) 6.6 g/dL (5.7-8.2) Coagulation Test 10/16/25 04:22 Prothrombin Time 10.6 sec (9.3-11.8) Prothrombin Time INR 1.00 (0.9-1.15) Activated Partial Thromboplast Time 28.0 SEC (24.5-34.5) Cardiac Markers Test 10/15/25 18:36 B-Type Natriuretic Peptide 102.76 pg/mL (0-100) LFT Test 10/15/25 18:36 10/16/25 04:22 Alanine Aminotransferase (ALT) 39 U/L (7-40) 27 U/L (7-40) Alkaline Phosphatase 113 U/L (46-116) 87 U/L (46-116) Aspartate Amino Transferase (AST) 62 U/L (13-40) H 46 U/L (13-40) H Total Bilirubin 0.2 mg/dL (0.2-1.0) 0.2 mg/dL (0.2-1.0) HgA1c, TSH Test 10/16/25 04:22 Hemoglobin A1c 5.4 % A1C (<5.7) Thyroid Stimulating Hormone (TSH) 4.03 uIU/mL (0.55-4.78) Assessment/Plan Assessment/Plan Acute hypoxic respiratory failure Acute on chronic heart failure with preserved ejection fraction Hypertension Transaminitis COPD Chronic respiratory failure Bilateral lower extremity cellulitis Chronic anemia Acute kidney injury due to vasomotor nephropathy Plan Bolus 500 mL NS IV fluids NS 100 mL an hour IV antibiotics for the cellulitis clindamycin IV IV iron Nephrology consult Pulmonary consult Monitor the kidney function Full code Plan discussed with: Patient Date of Service: Oct 16, 2025 Billing Provider: JACKIE BAUTISTA MD Common Visit Codes: NOT BILLABLE JACKIE BAUTISTA MD Oct 16, 2025 10:44
[2025-10-16] MEDS: PANTOPRAZOLE 40 MG/10 ML VIAL INJ IV SCH (11:06)
--- NOTE | 2025-10-16 11:22 | DVH ---
EXAM DESCRIPTION: CT CT AB PEL WO CON-NO ORAL OR IV CLINICAL HISTORY: Possible lower GI bleeding COMPARISON: US ABDOMEN COMPLETE SONOGRAM on DOS: 09/15/25 TECHNIQUE: CT abdomen and pelvis without IV contrast was performed. Coronal and sagittal MPR images were generated.CTDI/ DLP = 27.86 / 1294.71 Dose reduction technique with one or more of the following methods was performed: Automated exposure control, adjustment of the mA and/or kV according to patient size, use of iterative reconstruction technique FINDINGS: Lower chest: Bibasilar subsegmental atelectasis. Liver: Homogenous in attenuation. . Biliary: No calcified gallstones. No biliary ductal dilatation. Pancreas: No fat stranding or focal lesion. Spleen: Normal in size.. Adrenal glands: No nodularity. Kidneys: No nephrolithiasis. No hydroureteronephrosis. A couple small exophytic lesions arising from the right renal cortex, indeterminate. Small left renal cyst.. Bladder: No bladder wall thickening. Reproductive organs: Normal. Bowel: Severely dilated stomach. Multiple moderately dilated loops of small bowel. No discrete transition point. The large bowel is normal in caliber. Colonic diverticulosis without evidence of diverticulitis. Normal appendix.. Peritoneum: No free fluid. No free air. Vessels: Normal caliber abdominal aorta. . Lymph nodes: No suspicious lymph nodes. Soft tissues: Unremarkable. . Osseous structures: No acute fracture or subluxation. No suspicious osseous lesions. Degenerative changes of the visualized thoracolumbar spine. Postoperative changes from lumbar spinal fusion. Severe degenerative changes of the right hip joint. IMPRESSION: 1. Severely dilated stomach and multiple moderately dilated loops of small bowel. No discrete transition point identified. These finding are favored to represent ileus. Differential diagnosis includes partial small bowel obstruction. 2. Active gastrointestinal hemorrhage cannot be evaluated on this study due to lack of IV contrast. Colonic diverticulosis without evidence of diverticulitis. 3. A couple indeterminate exophytic lesions arising from the right kidney. Recommend nonurgent evaluation with MRI abdomen with IV contrast.
[2025-10-16] MEDS: SODIUM CHLORIDE 0.9% 1,000 ML IV SCH (13:18)
--- NOTE | 2025-10-16 16:03 | DVHINCON2 ---
Date of service: Oct 16, [address] Summers Reason for Consultation Acute kidney injury History of Present Illness Lauren is a 65-year-old female without prior knowledge of underlying kidney insufficiency and multiple chronic medical conditions including hypertension, dyslipidemia, heart failure who presented for further evaluation and management of bilateral lower extremity discomfort and erythema. Her clinical course has been notable for diagnosis of cellulitis of lower extremities for which he has been treated with IV antibiotics. She is seen in her room this afternoon awake and alert, she denies recent diarrhea, nausea or vomiting, NSAID use as an outp atient. Serum creatinine initially was four and has improved with conservative care. Past Medical History Hypertension HFpEF COPD Dyslipidemia GERD Pulmonary hypertension Schizophrenia Osteoarthritis Allergies: Coded Allergies: NO KNOWN ALLERGIES (Unverified , 09/15/25) Home Meds Reported Medications Cyclobenzaprine Hcl (Cyclobenzaprine Hcl) 10 Mg Tab, 10 MG PO Q8HP PRN for AGITATION for 30 Days, MG 09/16/25 Aripiprazole (Abilify) 20 Mg Tab, 20 MG PO, TAB 09/16/25 Gabapentin (Gabapentin) 300 Mg Cap, 300 MG PO for 30 Days, MG 09/16/25 Losartan Potassium (Losartan Potassium) 25 Mg Tab, 25 MG PO DAILY for 30 Days, MG 09/16/25 Bupropion Hcl (Bupropion Hcl) 100 Mg Tab, 150 MG PO DAILY for 30 Days, MG 09/16/25 Bupropion Hcl (Bupropion Hcl) 100 Mg Tab, 150 MG PO Q8HR for 30 Days, MG 09/16/25 Atorvastatin Calcium (ATORVASTATIN CALCIUM) 20 Mg Tab, 1 TAB PO DAILY, #30 TAB 5 Refills 09/16/25 Furosemide (Furosemide) 20 Mg Tab, 20 MG PO DAILY for 30 Days, MG 09/16/25 Duloxetine Hcl (Cymbalta) 20 Mg Cap, 1 CAP PO DAILY, #30 CAP 2 Refills 09/16/25 Mirtazapine (REMERON) 30 Mg Tab, 1 TAB PO QPM, #30 TAB 1 Refill 09/16/25 Clonidine Hydrochloride (Clonidine Hcl) 0.1 Mg Tab, 0.1 MG PO BID for 30 Days, MG 09/16/25 Metoprolol Tartrate (Metoprolol Tartrate) 100 Mg Tab, 100 MG PO DAILY for 30 Days, MG 09/16/25 Amlodipine Besylate (Amlodipine Besylate) 5 Mg Tab, 10 MG PO DAILY for 30 Days, MG 09/16/25 Current Medications Current Medications Medications (Trade) Dose Ordered Sig/Ida Route PRN Reason Start Time Stop Time Status Last Admin Clindamycin Phosphate 50 ml @ 50 mls/hr Q8HR IV 10/16/25 06:00 10/16/25 15:08 Pantoprazole Sodium (Protonix) 40 mg DAILY IV 10/16/25 10:00 10/16/25 11:06 Iron Sucrose 110 ml @ 110 mls/hr DAILY@1200 IV 10/16/25 12:00 10/20/25 11:59 Acetaminophen (Tylenol Tablet) 650 mg Q6HP PRN PO MILD PAIN (1-3 PAIN SCALE) 10/16/25 07:30 Albuterol (Ventolin Medneb) 2.5 mg Q4HPRN PRN NEB SHORTNESS OF BREATH 10/16/25 07:45 Ipratropium [place] (Atrovent Medneb) 0.5 mg Q4HR NEB 10/16/25 10:00 10/16/25 14:14 Sodium Chloride 1,000 ml @ 100 mls/hr Q10H IV 10/16/25 10:45 10/16/25 13:18 Family History: Alcoholism G8 BROTHER Arthritis G8 MOTHER G8 FATHER Diabetes mellitus G8 MOTHER Review of Systems Review of systems as per history of present illness otherwise all systems are reviewed and are noncontributory. H&P Exam Vital Signs/I&O Vital Sign Date Time Temp Pulse Resp B/P (MAP) Pulse Ox O2 Delivery O2 Flow Rate FiO2 10/16/25 14:17 111 20 96 10/16/25 14:14 Nasal Cannula 2.0 10/16/25 14:14 28 10/16/25 12:40 98.3 99/54 (69) 98.3 Physical Exam Gen: nad heent: nc/at, mmm lungs: cta anteriorly cvs: no rub abd: soft, bowel sounds audible ext: + erythema skin: no petechiae neuro: alert and oriented Labs/Diagnostic Data Labs/Diagnostic Data Laboratory Tests Test 10/16/25 10:03 10/16/25 09:07 10/16/25 08:07 10/16/25 07:37 Range/Units Hemoglobin 8.7 L 12.2-16.2 g/dL Hematocrit 27.4 L 36.0-46.0 % POC Glucose 79 67 L 62 L 70-106 mg/dl Test 10/16/25 04:22 10/15/25 18:36 Range/Units White Blood Count 8.2 10.6 4.4-10.8 10^3/uL Red Blood Count 2.94 L 3.29 L 4.0-5.20 10^6/uL Hemoglobin 8.6 L 9.7 L 12.2-16.2 g/dL Hematocrit 26.9 #L 30.1 L 36.0-46.0 % Mean Corpuscular Volume 91.6 91.4 80.0-100.0 fL Mean Corpuscular Hemoglobin 29.4 29.5 28.0-32.0 pg Mean Corpuscular Hemoglobin Concent 32.0 32.3 32.0-36.0 g/dL Red Cell Distribution Width 19.1 H 18.9 H 11.8-14.3 % Platelet Count 233 268 140-450 10^3/uL Mean Platelet Volume 7.0 6.8 L 6.9-10.8 fL Neutrophils (%) (Auto) 69.3 79.4 37.0-80.0 % Lymphocytes (%) (Auto) 12.8 9.1 L 10.0-50.0 % Monocytes (%) (Auto) 9.1 6.0 0.0-12.0 % Eosinophils (%) (Auto) 8.2 H 5.1 0.0-7.0 % Basophils (%) (Auto) 0.6 0.4 0.0-2.0 % Neutrophils # (Auto) 5.7 8.4 1.6-8.6 10 ^3/uL Lymphocytes # (Auto) 1.0 1.0 0.4-5.4 10 ^3/uL Monocytes # (Auto) 0.7 0.6 0-1.3 10 ^3/uL Eosinophils # (Auto) 0.7 0.5 0-0.8 10 ^3/uL Basophils # (Auto) 0 0 0-0.2 10 ^3/uL Nucleated Red Blood Cells 0.1 0.1 % Reticulocyte Count (auto) 2.33 H 0.5-1.5 % Prothrombin Time 10.6 9.3-11.8 sec Prothrombin Time INR 1.00 0.9-1.15 Activated Partial Thromboplast Time 28.0 24.5-34.5 SEC Sodium Level 137 133 L 136-145 mmol/L Potassium Level 4.2 4.9 3.5-5.1 mmol/L Chloride Level 101 98 98-107 mmol/L Carbon Dioxide Level 23 19 L 20-31 mmol/L Anion Gap 13 16 H 5-15 Blood Urea Nitrogen 71 H 79 H 9-23 mg/dL Creatinine 3.95 H 4.95 H 0.550-1.02 mg/dL Glomerular Filtration Rate Calc 12 9 >90 mL/min BUN/Creatinine Ratio 18.0 16.0 10.0-20.0 Serum Glucose 66 L 79 74-106 mg/dL Hemoglobin A1c 5.4 <5.7 % A1C Calcium Level 8.6 L 9.2 8.7-10.4 mg/dL Iron Level 33 L 50-170 ug/dL Total Iron Binding Capacity 288 250-425 ug/dL Percent Iron Saturation 11.5 L 15-50 % Ferritin 69.0 10-291 ng/mL Total Bilirubin 0.2 0.2 0.2-1.0 mg/dL Aspartate Amino Transferase (AST) 46 H 62 H 13-40 U/L Alanine Aminotransferase (ALT) 27 39 7-40 U/L Alkaline Phosphatase 87 113 46-116 U/L Total Protein 6.6 7.7 5.7-8.2 g/dL Albumin 3.6 4.3 3.2-4.8 g/dL Vitamin B12 Level 499 211-911 pg/mL Thyroid Stimulating Hormone (TSH) 4.03 0.55-4.78 uIU/mL Troponin I High Sensitivity 4 </=34 ng/L B-Type Natriuretic Peptide 102.76 0-100 pg/mL Assessment IMP: 1) Hemodynamically mediated acute kidney injury and vasomotor nephropathy in the setting of relative hypotension, possible volume deplete state and concurrent therapy with angiotensin receptor priyanka. 2) CKD stage IIIB? Baseline creatinine unknown to this medical writer 3) cellulitis of lower extremities 4) dehydration 5) HFpEF REC: - NS - agree with holding ARB - general recommendations to avoid intravenous contrast studies, NSAIDs if able - anticipate continued improvement in kidney function with conservative means. - discussed with patient at bedside. Thank you for the consultation. Plan discussed with: Patient ANDRES GUAJARDO MD Oct 16, 2025 16:03
[2025-10-16] MEDS: IRON SUCROSE COMPLEX 110 ML IV SCH (17:26)
[2025-10-16] MEDS: ALBUTEROL SULF 2.5 MG/0.5ML(0.5%) NEB SOLN NEB PRN (17:30)
[2025-10-16 19:30] LABS: Protein, Urine 16.4 mg/dL (1-14)
[2025-10-16 19:31] LABS: Urine Protein, UAD Negative (Negative)
--- NOTE | 2025-10-16 20:25 | DVHINCON2 ---
Date of service: Oct 16, [address] Young Reason for Consultation Acute on chronic hypoxic respiratory failure. History of Present Illness A 65-year-old woman with past medical history of COPD/asthma not on home oxygen, HFpEF, hypertension, dyslipidemia, GERD, pulmonary hypertension, and schizophrenia, who presented to ED on 10/15/25 with c/o bilateral leg swelling, redness and skin excoriations. She reports being admitted in the hospital 1 month ago with the same complaints. The wound was noted to have serous weeping or exudates. Skin appearing dry or cracked and brownish crust present. She also reports having shortness of breath, improves on coughing up and sitting up. Shortness of breath worsens when lying down. She has been sleeping on the living room couch due to orthopnea. She also reports dry cough. The patient uses walker, wheelchair and cane for ambulation due to inability to walk followed by spinal surgeries. She denies any chest pain, fever, urinary symptoms, recent sick contacts or any other complaints at this time. Patient was admitted for further care. Pulmonary consultation is requested for evaluation and management of acute on chronic hypoxic respiratory failure. Review of Systems: 14-point review of systems negative unless otherwise noted above. Past Medical History: HFpEF, hypertension, COPD/asthma not on home oxygen, dyslipidemia, GERD, pulmonary hypertension, schizophrenia, osteoarthritis, chronic low back pain, and depression Past Surgical History: Vertebral disc prolapse surgery, level not specified Medications: Reviewed. Allergies: No known drug allergies. Family History: DM, alcoholism, arthritis. Social History: Former smoker: Smoked for 20 years. Quit 2-3 years ago Alcohol: 3 beer cans per day No illicit drug use. Family History: Alcoholism G8 BROTHER Arthritis G8 MOTHER G8 FATHER Diabetes mellitus G8 MOTHER Allergies: Coded Allergies: NO KNOWN ALLERGIES (Unverified , 09/15/25) Home Meds Reported Medications Cyclobenzaprine Hcl (Cyclobenzaprine Hcl) 10 Mg Tab, 10 MG PO Q8HP PRN for AGITATION for 30 Days, MG 09/16/25 Aripiprazole (Abilify) 20 Mg Tab, 20 MG PO, TAB 09/16/25 Gabapentin (Gabapentin) 300 Mg Cap, 300 MG PO for 30 Days, MG 09/16/25 Losartan Potassium (Losartan Potassium) 25 Mg Tab, 25 MG PO DAILY for 30 Days, MG 09/16/25 Bupropion Hcl (Bupropion Hcl) 100 Mg Tab, 150 MG PO DAILY for 30 Days, MG 09/16/25 Bupropion Hcl (Bupropion Hcl) 100 Mg Tab, 150 MG PO Q8HR for 30 Days, MG 09/16/25 Atorvastatin Calcium (ATORVASTATIN CALCIUM) 20 Mg Tab, 1 TAB PO DAILY, #30 TAB 5 Refills 09/16/25 Furosemide (Furosemide) 20 Mg Tab, 20 MG PO DAILY for 30 Days, MG 09/16/25 Duloxetine Hcl (Cymbalta) 20 Mg Cap, 1 CAP PO DAILY, #30 CAP 2 Refills 09/16/25 Mirtazapine (REMERON) 30 Mg Tab, 1 TAB PO QPM, #30 TAB 1 Refill 09/16/25 Clonidine Hydrochloride (Clonidine Hcl) 0.1 Mg Tab, 0.1 MG PO BID for 30 Days, MG 09/16/25 Metoprolol Tartrate (Metoprolol Tartrate) 100 Mg Tab, 100 MG PO DAILY for 30 Days, MG 09/16/25 Amlodipine Besylate (Amlodipine Besylate) 5 Mg Tab, 10 MG PO DAILY for 30 Days, MG 09/16/25 Current Medications Current Medications Medications (Trade) Dose Ordered Sig/Ida Route PRN Reason Start Time Stop Time Status Last Admin Clindamycin Phosphate 50 ml @ 50 mls/hr Q8HR IV 10/16/25 06:00 10/16/25 15:08 Pantoprazole Sodium (Protonix) 40 mg DAILY IV 10/16/25 10:00 10/16/25 11:06 Iron Sucrose 110 ml @ 110 mls/hr DAILY@1200 IV 10/16/25 12:00 10/20/25 11:59 10/16/25 17:26 Acetaminophen (Tylenol Tablet) 650 mg Q6HP PRN PO MILD PAIN (1-3 PAIN SCALE) 10/16/25 07:30 Albuterol (Ventolin Medneb) 2.5 mg Q4HPRN PRN NEB SHORTNESS OF BREATH 10/16/25 07:45 10/16/25 17:30 Ipratropium [place] (Atrovent Medneb) 0.5 mg Q4HR NEB 10/16/25 10:00 10/16/25 17:30 Sodium Chloride 1,000 ml @ 100 mls/hr Q10H IV 10/16/25 10:45 10/16/25 13:18 Vital Signs Vital Signs Date Time Temp Pulse Resp B/P (MAP) Pulse Ox O2 Delivery O2 Flow Rate FiO2 10/16/25 17:33 99 Nasal Cannula* 2 28 10/16/25 17:31 101 20 10/16/25 16:56 98.4 127/77 (94) 98.4 Physical Exam Gen.: Patient lying in bed in no apparent distress. On supplemental oxygen. Head: Normocephalic, atraumatic. Eyes: EOMI/PERRLA. Ears: Normal hearing. Normal anatomy. Neck/trachea: Trachea midline, supple. Nose: Normal external anatomy. Mouth: Moist mucous membranes. Chest: Decreased air entry bilaterally. No wheezing or rhonchi. Cardiovascular: Positive S1, positive S2. Regular rate and rhythm. Abdomen: Positive bowel sounds in all 4 quadrants. Soft, non-tender, non- distended. : Deferred. Rectal: Deferred. Skin: Warm, dry. Intact. Extremities: 2+ radial pulses bilaterally. No lower extremity edema. Neuro: Awake, alert, oriented x3. No gross motor or sensory deficits. Cranial nerves II through XII intact. Gait not assessed. Labs/Diagnostic Data Labs Test 10/16/25 18:35 10/16/25 10:03 10/16/25 09:07 10/16/25 04:22 Range/Units Urine Color Light-yellow Yellow Urine Clarity Clear Clear Urine pH 5.0 5.0-9.0 Urine Specific [place] 1.013 1.001-1.035 Urine Protein Negative Negative Urine Ketones Trace Negative Urine Blood Negative Negative /uL Urine Nitrite Negative Negative Urine Bilirubin Negative Negative Urine Urobilinogen Normal Negative mg/dL Urine Leukocyte Esterase Negative Negative /uL Urine RBC <1 0 - 4 /hpf Urine Microscopic WBC < 1 0-5 /HPF Urine Squamous Epithelial Cells Few <5 /hpf Urine Bacteria None seen None Seen /hpf Urine Hyaline Casts Few 0 - 2 /lpf Urine Creatinine 71.74 30.0-125.0 mg/dL Urine Protein/Creatinine Ratio 0.23 Urine Sodium < 10 L 40-220 mmol/L Urine Glucose Normal Normal mg/dL Urine Total Protein 16.4 H 1-14 mg/dL Hemoglobin 8.7 L 12.2-16.2 g/dL Hematocrit 27.4 L 36.0-46.0 % POC Glucose 79 70-106 mg/dl White Blood Count 8.2 4.4-10.8 10^3/uL Red Blood Count 2.94 L 4.0-5.20 10^6/uL Mean Corpuscular Volume 91.6 80.0-100.0 fL Mean Corpuscular Hemoglobin 29.4 28.0-32.0 pg Mean Corpuscular Hemoglobin Concent 32.0 32.0-36.0 g/dL Red Cell Distribution Width 19.1 H 11.8-14.3 % Platelet Count 233 140-450 10^3/uL Mean Platelet Volume 7.0 6.9-10.8 fL Neutrophils (%) (Auto) 69.3 37.0-80.0 % Lymphocytes (%) (Auto) 12.8 10.0-50.0 % Monocytes (%) (Auto) 9.1 0.0-12.0 % Eosinophils (%) (Auto) 8.2 H 0.0-7.0 % Basophils (%) (Auto) 0.6 0.0-2.0 % Neutrophils # (Auto) 5.7 1.6-8.6 10 ^3/uL Lymphocytes # (Auto) 1.0 0.4-5.4 10 ^3/uL Monocytes # (Auto) 0.7 0-1.3 10 ^3/uL Eosinophils # (Auto) 0.7 0-0.8 10 ^3/uL Basophils # (Auto) 0 0-0.2 10 ^3/uL Nucleated Red Blood Cells 0.1 % Reticulocyte Count (auto) 2.33 H 0.5-1.5 % Prothrombin Time 10.6 9.3-11.8 sec Prothrombin Time INR 1.00 0.9-1.15 Activated Partial Thromboplast Time 28.0 24.5-34.5 SEC Sodium Level 137 136-145 mmol/L Potassium Level 4.2 3.5-5.1 mmol/L Chloride Level 101 98-107 mmol/L Carbon Dioxide Level 23 20-31 mmol/L Anion Gap 13 5-15 Blood Urea Nitrogen 71 H 9-23 mg/dL Creatinine 3.95 H 0.550-1.02 mg/dL Glomerular Filtration Rate Calc 12 >90 mL/min BUN/Creatinine Ratio 18.0 10.0-20.0 Serum Glucose 66 L 74-106 mg/dL Hemoglobin A1c 5.4 <5.7 % A1C Calcium Level 8.6 L 8.7-10.4 mg/dL Iron Level 33 L 50-170 ug/dL Total Iron Binding Capacity 288 250-425 ug/dL Percent Iron Saturation 11.5 L 15-50 % Ferritin 69.0 10-291 ng/mL Total Bilirubin 0.2 0.2-1.0 mg/dL Aspartate Amino Transferase (AST) 46 H 13-40 U/L Alanine Aminotransferase (ALT) 27 7-40 U/L Alkaline Phosphatase 87 46-116 U/L Total Protein 6.6 5.7-8.2 g/dL Albumin 3.6 3.2-4.8 g/dL Vitamin B12 Level 499 211-911 pg/mL Thyroid Stimulating Hormone (TSH) 4.03 0.55-4.78 uIU/mL Test 10/15/25 18:36 Range/Units Troponin I High Sensitivity 4 </=34 ng/L B-Type Natriuretic Peptide 102.76 0-100 pg/mL Assessment Impression: Acute on chronic hypoxic respiratory failure Dependence on supplemental oxygen COPD/asthma Acute on chronic heart failure with preserved ejection fraction Acute kidney injury Anemia Morbid obesity BMI of 40.3 Hx of nicotine dependence Plan: Supplemental oxygen Titrate to keep O2 sats above 92%. Continue bronchodilators. Continue antibiotics Follow up Cardiology recs Monitor hemoglobin Transfuse if less than 7.0 g/dL. Iron supplementation Protonix for GI ppx Monitor renal function. Monitor electrolytes. Supplement as necessary. Monitor ins and outs. Recommend diet and lifestyle modifications for weight reduction Obesity complicates all care GI/DVT prophylaxis. Prognosis: Poor given patient's multiple co-morbidities. Rest of plan per hospitalist and other consultants. Thank you, Dr. Young, for allowing me to participate in this patient's care. Further recommendations will depend on the patient's clinical course. Please do not hesitate to contact me if you have any questions or concerns. This medical document was created using an electronic medical record system with [employer] system. Although these documentations are being carefully reviewed, there may still be some phonetic and typographical changes. The errors are purely typographical, due to imperfection on the software program, and do not reflect any compromise in the patient's medical care. Plan discussed with: Other (RN/MD) Visit Coding Pulmonary Billing Provider: MILADY JONES MD Date of Service if different f: Oct 16, 2025 Common Visit Codes: [id number] INP/OBS CARE (HIGH) MILADY JONES MD Oct 16, 2025 20:25
[2025-10-16] MEDS ORDERED: HYDROcodone-ACET 5/325MG TAB PO PRN (21:00)
[2025-10-16] MEDS: MELATONIN 5 MG TAB PO ONE (21:16)
[2025-10-17] VITALS (15 sets, daily range): BP systolic 99–143; BP diastolic 46–69; PULSE 99–111; RESP 18–19; TEMP 97.2–98; O2SAT 91–100
[2025-10-17 00:10] LABS: COVID19 ANTIGEN SOFIA FIA NEGATIVE (NEGATIVE)
[2025-10-17 08:06] LABS: Hematocrit 26.6 % (36.0-46.0); Hemoglobin 8.6 g/dL (12.2-16.2); Mean Corpuscular Hemoglobin 30.3 pg (28.0-32.0); Mean Corpuscular Volume 93.2 fL (80.0-100.0); Nucleated Red Blood Cells % 0.1 %
[2025-10-17 08:19] LABS: Alanine Aminotransferase 28 U/L (7-40); Albumin 3.5 g/dL (3.2-4.8); Alkaline Phosphatase 85 U/L (46-116); Anion Gap 15 (5-15); BUN/Creatinine Ratio 23.3 (10.0-20.0); Calcium 8.7 mg/dL (8.7-10.4); Carbon Dioxide 22 mmol/L (20-31); Chloride 106 mmol/L (98-107); Cholesterol 102 mg/dL (< 200); Glucose 76 mg/dL (74-106); HDL Cholesterol 53 mg/dL (40-59); Magnesium 2.4 mg/dL (1.6-2.6); Potassium 3.5 mmol/L (3.5-5.1); Sodium 143 mmol/L (136-145); Total Protein 6.1 g/dL (5.7-8.2); Triglycerides 95 mg/dL (< 150)
[2025-10-17 08:59] LABS: Anisocytosis Slight; Ovalocytes FEW
[2025-10-17 09:02] LABS: Bilirubin, Total 0.2 mg/dL (0.2-1.0); Blood Urea Nitrogen 47 mg/dL (9-23)
--- NOTE | 2025-10-17 11:49 | DVHPN2 ---
Subjective She is better today Less congested Creatinine is better Changes from previous H/P or p: Changes Skin: Rash Objective Vitals Vital Signs Date Time Temp Pulse Resp B/P (MAP) Pulse Ox O2 Delivery O2 Flow Rate FiO2 10/17/25 10:35 104 18 100 10/17/25 10:29 Nasal Cannula 2.0 10/17/25 10:29 28 10/17/25 08:34 97.9 126/60 (82) 97.9 Intake/Output Intake and Output 10/17/25 07:00 Intake Total 830 ml Balance 830 ml Intake Oral 780 ml IV Total 50 ml # Voids 1 # Bowel Movements 1 General Appearance: Alert, Oriented X3, Cooperative, No acute distress Lungs: Other (Bilateral rhonchi) Cardiovascular: Regular rate, Normal S1, Normal S2, No murmurs Abdomen: Normal bowel sounds, Soft, No tenderness Extremities: No edema Medications Current Medications Medications Dose Ordered Sig/Ida Route Start Time Stop Time Status Last Admin Dose Admin Clindamycin Phosphate 50 ml @ 50 mls/hr Q8HR IV 10/16/25 06:00 10/17/25 05:12 50 MLS/HR Pantoprazole Sodium 40 mg DAILY IV 10/16/25 10:00 10/17/25 10:16 40 MG Iron Sucrose 110 ml @ 110 mls/hr DAILY@1200 IV 10/16/25 12:00 10/20/25 11:59 10/16/25 17:26 110 MLS/HR Acetaminophen 650 mg Q6HP PRN PO 10/16/25 07:30 Albuterol 2.5 mg Q4HPRN PRN NEB 10/16/25 07:45 10/17/25 10:29 2.5 MG Ipratropium [place] 0.5 mg Q4HR NEB 10/16/25 10:00 10/17/25 10:29 0.5 MG Sodium Chloride 1,000 ml @ 100 mls/hr Q10H IV 10/16/25 10:45 10/17/25 10:16 100 MLS/HR Acetaminophen/ Hydrocodone Bitart 1 tab Q6HPRN PRN PO 10/16/25 21:00 Laboratory Results Laboratory Tests 10/17/25 04:22 10/17/25 04:26 Chemistry Test 10/17/25 04:22 Albumin 3.5 g/dL (3.2-4.8) Calcium Level 8.7 mg/dL (8.7-10.4) Magnesium Level 2.4 mg/dL (1.6-2.6) Total Protein 6.1 g/dL (5.7-8.2) Lipid panel Test 10/17/25 04:22 Cholesterol Level 102 mg/dL (< 200) HDL Cholesterol 53 mg/dL (40-59) Triglycerides Level 95 mg/dL (< 150) LFT Test 10/17/25 04:22 Alanine Aminotransferase (ALT) 28 U/L (7-40) Alkaline Phosphatase 85 U/L (46-116) Aspartate Amino Transferase (AST) 47 U/L (13-40) H Total Bilirubin 0.2 mg/dL (0.2-1.0) Urinalysis Test 10/16/25 18:35 Urine Color Light-yellow (Yellow) Urine Clarity Clear (Clear) Urine pH 5.0 (5.0-9.0) Urine Specific [place] 1.013 (1.001-1.035) Urine Protein Negative (Negative) Urine Ketones Trace (Negative) Urine Blood Negative /uL (Negative) Urine Nitrite Negative (Negative) Urine Bilirubin Negative (Negative) Urine Urobilinogen Normal mg/dL (Negative) Urine Leukocyte Esterase Negative /uL (Negative) Urine RBC <1 /hpf (0 - 4) Urine Microscopic WBC < 1 /HPF (0-5) Urine Squamous Epithelial Cells Few /hpf (<5) Urine Bacteria None seen /hpf (None Seen) Urine Hyaline Casts Few /lpf (0 - 2) Urine Creatinine 71.74 mg/dL (30.0-125.0) Urine Protein/Creatinine Ratio 0.23 Urine Sodium < 10 mmol/L (40-220) L Urine Glucose Normal mg/dL (Normal) Urine Total Protein 16.4 mg/dL (1-14) H Assessment/Plan Assessment/Plan Acute hypoxic respiratory failure Acute on chronic heart failure with preserved ejection fraction Hypertension Transaminitis COPD Chronic respiratory failure Bilateral lower extremity cellulitis Chronic anemia Acute kidney injury due to vasomotor nephropathy Plan Bolus 500 mL NS IV fluids NS 100 mL an hour IV antibiotics for the cellulitis clindamycin IV IV iron Nephrology consult Pulmonary consult Monitor the kidney function Full code 10/17/2025: Lower the IV fluids rate to 60 mL an hour Continue IV antibiotics for the cellulitis clindamycin Echo done a month ago showed ejection fraction 65% IV iron Plan discussed with: Patient Date of Service: Oct 17, 2025 Billing Provider: JACKIE BAUTISTA MD Common Visit Codes: NOT BILLABLE JACKIE BAUTISTA MD Oct 17, 2025 11:49
--- NOTE | 2025-10-17 12:18 | DVHPN2 ---
Progress Note Date Seen: Oct 17, 2025 Medical Necessity Reason Pt with a Central, PICC or Fol: No Subjective Patient reports: No new complaints Objective vital signs Vital Sign Date Time Temp Pulse Resp B/P (MAP) Pulse Ox O2 Delivery O2 Flow Rate FiO2 10/17/25 10:35 104 18 100 10/17/25 10:29 Nasal Cannula 2.0 10/17/25 10:29 28 10/17/25 08:34 97.9 126/60 (82) 97.9 Total Intake and Output 10/16/25 10/16/25 10/17/25 15:00 23:00 07:00 Intake Total 280 ml 250 ml 300 ml Balance 280 ml 250 ml 300 ml medications Current Medications Medications Dose Ordered Sig/Ida Route Start Time Stop Time Status Last Admin Dose Admin Clindamycin Phosphate 50 ml @ 50 mls/hr Q8HR IV 10/16/25 06:00 10/17/25 05:12 50 MLS/HR Pantoprazole Sodium 40 mg DAILY IV 10/16/25 10:00 10/17/25 10:16 40 MG Iron Sucrose 110 ml @ 110 mls/hr DAILY@1200 IV 10/16/25 12:00 10/20/25 11:59 10/17/25 12:13 110 MLS/HR Acetaminophen 650 mg Q6HP PRN PO 10/16/25 07:30 Albuterol 2.5 mg Q4HPRN PRN NEB 10/16/25 07:45 10/17/25 10:29 2.5 MG Ipratropium [place] 0.5 mg Q4HR NEB 10/16/25 10:00 10/17/25 10:29 0.5 MG Acetaminophen/ Hydrocodone Bitart 1 tab Q6HPRN PRN PO 10/16/25 21:00 Sodium Chloride 1,000 ml @ 60 mls/hr [id number] IV 10/17/25 12:00 UNV Examination Gen: NAD Heart: RRR, normal S1 and S2 Lungs: Bilateral air entry, no rales Ext: No edema Neuro: alert laboratory and microbiology Laboratory Tests 10/17/25 04:26 10/17/25 04:22 Test 10/17/25 04:22 Range/Units Serum Glucose 76 74-106 mg/dL Labs and/or images reviewed: Labs reviewed by me Problem List/Assessment/Plan Problem List/Assessment/Plan IMP: 1) Hemodynamically mediated acute kidney injury and vasomotor nephropathy in the setting of relative hypotension, possible volume deplete state and concurrent therapy with angiotensin receptor priyanka. 2) CKD stage IIIB? Baseline creatinine unknown to this senior grant writer 3) cellulitis of lower extremities 4) dehydration 5) HFpEF REC: - Improvement in kidney function noted, downtrend in serum creat - Chemistry panel in am - Continue IV fluids - Strict I&Os - Avoidance of IV contrast studies if able, RAAS inhibitors, and NSAIDs - Will continue to follow Plan discussed with: Patient [facility] Oct 17, 2025 12:18
[2025-10-17] MEDS: SODIUM CHLORIDE 0.9% 1,000 ML IV SCH (14:10)
--- NOTE | 2025-10-17 23:36 | DVHPN2 ---
Subjective DOS: 10/17/2025 Patient seen and examined at bedside. Remains on supplemental oxygen Overnight events reviewed. Changes from previous H/P or p: No Changes Skin: Rash Objective Vitals Vital Signs Date Time Temp Pulse Resp B/P (MAP) Pulse Ox O2 Delivery O2 Flow Rate FiO2 10/17/25 22:05 99 18 96 10/17/25 21:00 97.7 117/59 (78) 97.7 10/17/25 20:00 Nasal Cannula* 2 28 Intake/Output Intake and Output 10/17/25 07:00 Intake Total 830 ml Balance 830 ml Intake Oral 780 ml IV Total 50 ml # Voids 1 # Bowel Movements 1 Exam Gen.: Patient lying in bed in no apparent distress. On supplemental oxygen. Head: Normocephalic, atraumatic. Eyes: EOMI/PERRLA. Ears: Normal hearing. Normal anatomy. Neck/trachea: Trachea midline, supple. Nose: Normal external anatomy. Mouth: Moist mucous membranes. Chest: Decreased air entry bilaterally. No wheezing or rhonchi. Cardiovascular: Positive S1, positive S2. Regular rate and rhythm. Abdomen: Positive bowel sounds in all 4 quadrants. Soft, non-tender, non- distended. : Deferred. Rectal: Deferred. Skin: Warm, dry. Intact. Extremities: 2+ radial pulses bilaterally. No lower extremity edema. Neuro: Awake, alert, oriented x3. No gross motor or sensory deficits. Cranial nerves II through XII intact. Gait not assessed. General Appearance: Alert, Oriented X3, Cooperative, No acute distress Lungs: Other (Bilateral rhonchi) Cardiovascular: Regular rate, Normal S1, Normal S2, No murmurs Abdomen: Normal bowel sounds, Soft, No tenderness Extremities: No edema Medications Current Medications Medications Dose Ordered Sig/Ida Route Start Time Stop Time Status Last Admin Dose Admin Clindamycin Phosphate 50 ml @ 50 mls/hr Q8HR IV 10/16/25 06:00 10/17/25 21:03 50 MLS/HR Pantoprazole Sodium 40 mg DAILY IV 10/16/25 10:00 10/17/25 10:16 40 MG Iron Sucrose 110 ml @ 110 mls/hr DAILY@1200 IV 10/16/25 12:00 10/20/25 11:59 10/17/25 12:13 110 MLS/HR Acetaminophen 650 mg Q6HP PRN PO 10/16/25 07:30 Albuterol 2.5 mg Q4HPRN PRN NEB 10/16/25 07:45 10/17/25 10:29 2.5 MG Ipratropium [place] 0.5 mg Q4HR NEB 10/16/25 10:00 10/17/25 22:05 0.5 MG Acetaminophen/ Hydrocodone Bitart 1 tab Q6HPRN PRN PO 10/16/25 21:00 Sodium Chloride 1,000 ml @ 60 mls/hr [id number] IV 10/17/25 12:00 10/17/25 14:10 60 MLS/HR Laboratory Results Laboratory Tests 10/17/25 04:22 10/17/25 04:26 Chemistry Test 10/17/25 04:22 Albumin 3.5 g/dL (3.2-4.8) Calcium Level 8.7 mg/dL (8.7-10.4) Magnesium Level 2.4 mg/dL (1.6-2.6) Total Protein 6.1 g/dL (5.7-8.2) Lipid panel Test 10/17/25 04:22 Cholesterol Level 102 mg/dL (< 200) HDL Cholesterol 53 mg/dL (40-59) Triglycerides Level 95 mg/dL (< 150) LFT Test 10/17/25 04:22 Alanine Aminotransferase (ALT) 28 U/L (7-40) Alkaline Phosphatase 85 U/L (46-116) Aspartate Amino Transferase (AST) 47 U/L (13-40) H Total Bilirubin 0.2 mg/dL (0.2-1.0) Urinalysis Test 10/16/25 18:35 Urine Color Light-yellow (Yellow) Urine Clarity Clear (Clear) Urine pH 5.0 (5.0-9.0) Urine Specific [place] 1.013 (1.001-1.035) Urine Protein Negative (Negative) Urine Ketones Trace (Negative) Urine Blood Negative /uL (Negative) Urine Nitrite Negative (Negative) Urine Bilirubin Negative (Negative) Urine Urobilinogen Normal mg/dL (Negative) Urine Leukocyte Esterase Negative /uL (Negative) Urine RBC <1 /hpf (0 - 4) Urine Microscopic WBC < 1 /HPF (0-5) Urine Squamous Epithelial Cells Few /hpf (<5) Urine Bacteria None seen /hpf (None Seen) Urine Hyaline Casts Few /lpf (0 - 2) Urine Creatinine 71.74 mg/dL (30.0-125.0) Urine Protein/Creatinine Ratio 0.23 Urine Sodium < 10 mmol/L (40-220) L Urine Glucose Normal mg/dL (Normal) Urine Total Protein 16.4 mg/dL (1-14) H Microbiology Microbiology Date/Time Source Procedure Growth Status 10/16/25 22:51 Nose MRSA Screen - Final Complete Assessment/Plan Assessment/Plan Impression: Acute on chronic hypoxic respiratory failure Dependence on supplemental oxygen COPD/asthma Acute on chronic heart failure with preserved ejection fraction Acute kidney injury Anemia Morbid obesity BMI of 40.3 Hx of nicotine dependence Events: Remains on supplemental oxygen, 2 LPM NC Taper O2 as tolerated Continue bronchodilators Continue antibiotics Monitor hemoglobin - currently 8.6 g/dL Transfuse if less than 7.0 g/dL. Iron supplementation Protonix BID for GI prophylaxis Labs and imaging reviewed. Rest of plan as noted below. Plan: Supplemental oxygen Titrate to keep O2 sats above 92%. Continue bronchodilators. Continue antibiotics Follow up Cardiology recs Monitor hemoglobin Transfuse if less than 7.0 g/dL. Iron supplementation Protonix for GI ppx Monitor renal function. Monitor electrolytes. Supplement as necessary. Monitor ins and outs. Recommend diet and lifestyle modifications for weight reduction Obesity complicates all care GI/DVT prophylaxis. Prognosis: Poor given patient's multiple co-morbidities. Rest of plan per hospitalist and other consultants. Thank you, Dr. Young, for allowing me to participate in this patient's care. Further recommendations will depend on the patient's clinical course. Please do not hesitate to contact me if you have any questions or concerns. This medical document was created using an electronic medical record system with [employer] dictation system. Although these documentations are being carefully reviewed, there may still be some phonetic and typographical changes. The errors are purely typographical, due to imperfection on the software program, and do not reflect any compromise in the patient's medical care. Plan discussed with: Patient, Other (PIETRO Grant) Visit Coding Pulmonary Billing Provider: MILADY JONES MD Date of Service if different f: Oct 17, 2025 Common Visit Codes: [id number] INP/OBS CARE(HIGH) MILADY JONES MD Oct 17, 2025 23:36
[2025-10-18] VITALS (19 sets, daily range): BP systolic 110–127; BP diastolic 54–68; PULSE 88–128; RESP 16–20; TEMP 97.2–99.2; O2SAT 94–100
[2025-10-18 07:24] LABS: Calcium 9.1 mg/dL (8.7-10.4); Potassium 3.6 mmol/L (3.5-5.1); Sodium 144 mmol/L (136-145)
[2025-10-18 07:25] LABS: Anion Gap 11 (5-15); Carbon Dioxide 25 mmol/L (20-31)
[2025-10-18 07:30] LABS: BUN/Creatinine Ratio 11.2 (10.0-20.0); Blood Urea Nitrogen 12 mg/dL (9-23); Glucose 89 mg/dL (74-106); Magnesium 2.0 mg/dL (1.6-2.6)
[2025-10-18 07:33] LABS: Chloride 108 mmol/L (98-107)
--- NOTE | 2025-10-18 10:40 | DVHPN2 ---
Subjective She is better today Less congested Creatinine is better Changes from previous H/P or p: Changes Skin: Rash Objective Vitals Vital Signs Date Time Temp Pulse Resp B/P (MAP) Pulse Ox O2 Delivery O2 Flow Rate FiO2 10/18/25 10:08 100 16 100 10/18/25 10:02 Nasal Cannula* 3 32 10/18/25 09:00 98.3 124/68 (86) 98.3 Intake/Output Intake and Output 10/18/25 07:00 Intake Total 2060 ml Balance 2060 ml Intake Oral 2060 ml # Voids 6 General Appearance: Alert, Oriented X3, Cooperative, No acute distress Lungs: Other (Bilateral rhonchi) Cardiovascular: Regular rate, Normal S1, Normal S2, No murmurs Abdomen: Normal bowel sounds, Soft, No tenderness Extremities: No edema Medications Current Medications Medications Dose Ordered Sig/Ida Route Start Time Stop Time Status Last Admin Dose Admin Clindamycin Phosphate 50 ml @ 50 mls/hr Q8HR IV 10/16/25 06:00 10/18/25 05:20 50 MLS/HR Pantoprazole Sodium 40 mg DAILY IV 10/16/25 10:00 10/18/25 09:46 40 MG Iron Sucrose 110 ml @ 110 mls/hr DAILY@1200 IV 10/16/25 12:00 10/20/25 11:59 10/17/25 12:13 110 MLS/HR Acetaminophen 650 mg Q6HP PRN PO 10/16/25 07:30 Albuterol 2.5 mg Q4HPRN PRN NEB 10/16/25 07:45 10/18/25 10:01 2.5 MG Ipratropium [place] 0.5 mg Q4HR NEB 10/16/25 10:00 10/17/25 22:05 0.5 MG Acetaminophen/ Hydrocodone Bitart 1 tab Q6HPRN PRN PO 10/16/25 21:00 Laboratory Results Laboratory Tests 10/17/25 04:26 10/18/25 05:25 Chemistry Test 10/18/25 05:25 Calcium Level 9.1 mg/dL (8.7-10.4) Magnesium Level 2.0 mg/dL (1.6-2.6) Urinalysis Test 10/16/25 18:35 Urine Color Light-yellow (Yellow) Urine Clarity Clear (Clear) Urine pH 5.0 (5.0-9.0) Urine Specific [place] 1.013 (1.001-1.035) Urine Protein Negative (Negative) Urine Ketones Trace (Negative) Urine Blood Negative /uL (Negative) Urine Nitrite Negative (Negative) Urine Bilirubin Negative (Negative) Urine Urobilinogen Normal mg/dL (Negative) Urine Leukocyte Esterase Negative /uL (Negative) Urine RBC <1 /hpf (0 - 4) Urine Microscopic WBC < 1 /HPF (0-5) Urine Squamous Epithelial Cells Few /hpf (<5) Urine Bacteria None seen /hpf (None Seen) Urine Hyaline Casts Few /lpf (0 - 2) Urine Creatinine 71.74 mg/dL (30.0-125.0) Urine Protein/Creatinine Ratio 0.23 Urine Sodium < 10 mmol/L (40-220) L Urine Glucose Normal mg/dL (Normal) Urine Total Protein 16.4 mg/dL (1-14) H Microbiology Microbiology Date/Time Source Procedure Growth Status 10/16/25 22:51 Nose MRSA Screen - Final Complete Assessment/Plan Assessment/Plan Acute hypoxic respiratory failure Acute on chronic heart failure with preserved ejection fraction Hypertension Transaminitis COPD Chronic respiratory failure Bilateral lower extremity cellulitis Chronic anemia Acute kidney injury due to vasomotor nephropathy Plan Bolus 500 mL NS IV fluids NS 100 mL an hour IV antibiotics for the cellulitis clindamycin IV IV iron Nephrology consult Pulmonary consult Monitor the kidney function Full code 10/17/2025: Lower the IV fluids rate to 60 mL an hour Continue IV antibiotics for the cellulitis clindamycin Echo done a month ago showed ejection fraction 65% IV iron 10/18/2025: Discontinue IV fluids Continue clindamycin IV Wound care Give Lasix 40 mg daily Monitor closely Physical therapy Plan discussed with: Patient My Orders Orders - JACKIE BAUTISTA MD Procedure Category Date Status Time Refer To Physical ALINE 10/18/25 In Process Therapy 09:53 * Wound Consult CONS 10/18/25 Transmitted Furosemide Injection PHA 10/18/25 Transmitted (Lasix Injection) 10:45 Furosemide Tablet PHA 10/19/25 Transmitted (Lasix Tablet) 10:00 Date of Service: Oct 18, 2025 Billing Provider: JACKIE BAUTISTA MD Common Visit Codes: [id number] INP/OBS CARE(HIGH) JACKIE BAUTISTA MD Oct 18, 2025 10:40
[2025-10-18] MEDS: FUROSEMIDE 40 MG/4 ML VIAL IV ONE (11:20)
[2025-10-18] MEDS: METOPROLOL TARTRATE 50 MG TAB PO ONE (14:38)
--- NOTE | 2025-10-18 15:42 | DVHPN2 ---
Progress Note Date Seen: Oct 18, 2025 Medical Necessity Reason Pt with a Central, PICC or Fol: No Objective vital signs Vital Sign Date Time Temp Pulse Resp B/P (MAP) Pulse Ox O2 Delivery O2 Flow Rate FiO2 10/18/25 14:38 121 110/68 10/18/25 14:07 16 100 10/18/25 14:01 Nasal Cannula* 3 32 10/18/25 09:00 98.3 98.3 Total Intake and Output 10/17/25 10/17/25 10/18/25 15:00 23:00 07:00 Intake Total 460 ml 400 ml 1200 ml Balance 460 ml 400 ml 1200 ml medications Current Medications Medications Dose Ordered Sig/Ida Route Start Time Stop Time Status Last Admin Dose Admin Clindamycin Phosphate 50 ml @ 50 mls/hr Q8HR IV 10/16/25 06:00 10/18/25 05:20 50 MLS/HR Pantoprazole Sodium 40 mg DAILY IV 10/16/25 10:00 10/18/25 09:46 40 MG Iron Sucrose 110 ml @ 110 mls/hr DAILY@1200 IV 10/16/25 12:00 10/20/25 11:59 10/18/25 14:35 110 MLS/HR Acetaminophen 650 mg Q6HP PRN PO 10/16/25 07:30 Albuterol 2.5 mg Q4HPRN PRN NEB 10/16/25 07:45 10/18/25 14:01 2.5 MG Ipratropium [place] 0.5 mg Q4HR NEB 10/16/25 10:00 10/18/25 14:01 0.5 MG Acetaminophen/ Hydrocodone Bitart 1 tab Q6HPRN PRN PO 10/16/25 21:00 Furosemide 40 mg DAILY PO 10/19/25 10:00 Metoprolol Tartrate 50 mg BID PO 10/18/25 22:00 Examination: GENERAL:Normal, CVS:Normal laboratory and microbiology Laboratory Tests 10/18/25 05:25 10/17/25 04:26 Test 10/18/25 05:25 Range/Units Serum Glucose 89 74-106 mg/dL Microbiology Date/Time Source Procedure Growth Status 10/16/25 22:51 Nose MRSA Screen - Final Complete Problem List/Assessment/Plan Problem List/Assessment/Plan Acute kidney injury hemodynamically mediated in the setting of volume depletion Sepsis secondary to cellulitis Small bowel obstruction Anemia CKD II Renal function has improved with hydration No indication for dialysis Patient completed IV fluid hydration now currently discontinued Has current plan to start oral diuretics tomorrow monitoring urinary response and electrolytes Plan discussed with: Patient CARIDAD COKER MD Oct 18, 2025 15:42
[2025-10-18] MEDS: METOPROLOL TARTRATE 50 MG TAB PO SCH (21:04)
--- NOTE | 2025-10-18 22:50 | DVHPN2 ---
Subjective DOS: 10/18/2025 Patient seen and examined at bedside. Remains on supplemental oxygen Overnight events reviewed. Changes from previous H/P or p: No Changes Skin: Rash Objective Vitals Vital Signs Date Time Temp Pulse Resp B/P (MAP) Pulse Ox O2 Delivery O2 Flow Rate FiO2 10/18/25 22:46 88 19 100 10/18/25 22:38 Nasal Cannula 3.0 10/18/25 22:38 32 10/18/25 21:04 119/63 10/18/25 17:00 99.2 99.2 Intake/Output Intake and Output 10/18/25 07:00 Intake Total 2060 ml Balance 2060 ml Intake Oral 2060 ml # Voids 6 Exam Gen.: Patient lying in bed in no apparent distress. On supplemental oxygen. Head: Normocephalic, atraumatic. Eyes: EOMI/PERRLA. Ears: Normal hearing. Normal anatomy. Neck/trachea: Trachea midline, supple. Nose: Normal external anatomy. Mouth: Moist mucous membranes. Chest: Decreased air entry bilaterally. No wheezing or rhonchi. Cardiovascular: Positive S1, positive S2. Regular rate and rhythm. Abdomen: Positive bowel sounds in all 4 quadrants. Soft, non-tender, non- distended. : Deferred. Rectal: Deferred. Skin: Warm, dry. Intact. Extremities: 2+ radial pulses bilaterally. No lower extremity edema. Neuro: Awake, alert, oriented x3. No gross motor or sensory deficits. Cranial nerves II through XII intact. Gait not assessed. General Appearance: Alert, Oriented X3, Cooperative, No acute distress Lungs: Other (Bilateral rhonchi) Cardiovascular: Regular rate, Normal S1, Normal S2, No murmurs Abdomen: Normal bowel sounds, Soft, No tenderness Extremities: No edema Medications Current Medications Medications Dose Ordered Sig/Ida Route Start Time Stop Time Status Last Admin Dose Admin Clindamycin Phosphate 50 ml @ 50 mls/hr Q8HR IV 10/16/25 06:00 10/18/25 21:04 50 MLS/HR Pantoprazole Sodium 40 mg DAILY IV 10/16/25 10:00 10/18/25 09:46 40 MG Iron Sucrose 110 ml @ 110 mls/hr DAILY@1200 IV 10/16/25 12:00 10/20/25 11:59 10/18/25 14:35 110 MLS/HR Acetaminophen 650 mg Q6HP PRN PO 10/16/25 07:30 Albuterol 2.5 mg Q4HPRN PRN NEB 10/16/25 07:45 10/18/25 22:38 2.5 MG Ipratropium [place] 0.5 mg Q4HR NEB 10/16/25 10:00 10/18/25 22:38 0.5 MG Acetaminophen/ Hydrocodone Bitart 1 tab Q6HPRN PRN PO 10/16/25 21:00 Furosemide 40 mg DAILY PO 10/19/25 10:00 Metoprolol Tartrate 50 mg BID PO 10/18/25 22:00 10/18/25 21:04 50 MG Laboratory Results Laboratory Tests 10/17/25 04:26 10/18/25 05:25 Chemistry Test 10/18/25 05:25 Calcium Level 9.1 mg/dL (8.7-10.4) Magnesium Level 2.0 mg/dL (1.6-2.6) Urinalysis Test 10/16/25 18:35 Urine Color Light-yellow (Yellow) Urine Clarity Clear (Clear) Urine pH 5.0 (5.0-9.0) Urine Specific [place] 1.013 (1.001-1.035) Urine Protein Negative (Negative) Urine Ketones Trace (Negative) Urine Blood Negative /uL (Negative) Urine Nitrite Negative (Negative) Urine Bilirubin Negative (Negative) Urine Urobilinogen Normal mg/dL (Negative) Urine Leukocyte Esterase Negative /uL (Negative) Urine RBC <1 /hpf (0 - 4) Urine Microscopic WBC < 1 /HPF (0-5) Urine Squamous Epithelial Cells Few /hpf (<5) Urine Bacteria None seen /hpf (None Seen) Urine Hyaline Casts Few /lpf (0 - 2) Urine Creatinine 71.74 mg/dL (30.0-125.0) Urine Protein/Creatinine Ratio 0.23 Urine Sodium < 10 mmol/L (40-220) L Urine Glucose Normal mg/dL (Normal) Urine Total Protein 16.4 mg/dL (1-14) H Microbiology Microbiology Date/Time Source Procedure Growth Status 10/16/25 22:51 Nose MRSA Screen - Final Complete Assessment/Plan Assessment/Plan Impression: Acute on chronic hypoxic respiratory failure Dependence on supplemental oxygen COPD/asthma Acute on chronic heart failure with preserved ejection fraction Acute kidney injury Anemia Morbid obesity BMI of 40.3 Hx of nicotine dependence Events: Remains on supplemental oxygen, 2 LPM [place] Taper O2 as tolerated BiPAP PRN. Continue bronchodilators Continue antibiotics Blood pressure control Monitor hemoglobin - last Hgb 8.6 g/dL Transfuse if less than 7.0 g/dL. Continue iron supplementation Diurese to maintain euvolemia - on Lasix Monitor renal function. Monitor electrolytes. Supplement as necessary. Monitor ins and outs. Protonix BID for GI prophylaxis Labs and imaging reviewed. Rest of plan as noted below. Plan: Supplemental oxygen Titrate to keep O2 sats above 92%. Continue bronchodilators. Continue antibiotics Follow up Cardiology recs Monitor hemoglobin Transfuse if less than 7.0 g/dL. Iron supplementation Protonix for GI ppx Monitor renal function. Monitor electrolytes. Supplement as necessary. Monitor ins and outs. Recommend diet and lifestyle modifications for weight reduction Obesity complicates all care GI/DVT prophylaxis. Prognosis: Poor given patient's multiple co-morbidities. Rest of plan per hospitalist and other consultants. Thank you, Dr. Young, for allowing me to participate in this patient's care. Further recommendations will depend on the patient's clinical course. Please do not hesitate to contact me if you have any questions or concerns. This medical document was created using an electronic medical record system with [employer] dictation system. Although these documentations are being carefully reviewed, there may still be some phonetic and typographical changes. The errors are purely typographical, due to imperfection on the software program, and do not reflect any compromise in the patient's medical care. Plan discussed with: Patient, Other (RN) Visit Coding Pulmonary Billing Provider: MILADY JONES MD Date of Service if different f: Oct 18, 2025 Common Visit Codes: [id number] INP/OBS CARE(HIGH) MILADY JONES MD Oct 18, 2025 22:49
[2025-10-19] VITALS (22 sets, daily range): BP systolic 108–124; BP diastolic 59–68; PULSE 82–100; RESP 16–20; TEMP 97.5–98.1; O2SAT 87–100
[2025-10-19 06:07] LABS: Hemoglobin 7.9 g/dL (12.2-16.2); Nucleated Red Blood Cells % 0.2 %
[2025-10-19 06:09] LABS: Hematocrit 24.2 % (36.0-46.0); Mean Corpuscular Hemoglobin 29.6 pg (28.0-32.0); Mean Corpuscular Volume 90.5 fL (80.0-100.0)
[2025-10-19 06:11] LABS: Alanine Aminotransferase 24 U/L (7-40); Alkaline Phosphatase 71 U/L (46-116); Anion Gap 12 (5-15); Calcium 8.9 mg/dL (8.7-10.4); Carbon Dioxide 27 mmol/L (20-31); Chloride 105 mmol/L (98-107); Sodium 144 mmol/L (136-145)
[2025-10-19 06:12] LABS: BUN/Creatinine Ratio 9.3 (10.0-20.0); Glucose 100 mg/dL (74-106); Magnesium 1.6 mg/dL (1.6-2.6); Total Protein 6.2 g/dL (5.7-8.2)
[2025-10-19 06:14] LABS: Albumin 3.3 g/dL (3.2-4.8)
[2025-10-19 06:15] LABS: Bilirubin, Total 0.2 mg/dL (0.2-1.0); Blood Urea Nitrogen 8 mg/dL (9-23); Potassium 3.5 mmol/L (3.5-5.1)
--- NOTE | 2025-10-19 09:41 | DVHPN2 ---
Subjective She has more edema in her legs bilaterally Changes from previous H/P or p: Changes Skin: Rash Objective Vitals Vital Signs Date Time Temp Pulse Resp B/P (MAP) Pulse Ox O2 Delivery O2 Flow Rate FiO2 10/19/25 09:28 98 19 100 10/19/25 09:28 Nasal Cannula* 2 28 10/19/25 05:00 98.1 112/61 (78) 98.1 Intake/Output Intake and Output 10/19/25 07:00 Intake Total 1855 ml Balance 1855 ml Intake Oral 1755 ml IV Total 100 ml # Voids 9 # Bowel Movements 6 General Appearance: Alert, Oriented X3, Cooperative, No acute distress Lungs: Other (Bilateral rhonchi) Cardiovascular: Regular rate, Normal S1, Normal S2, No murmurs Abdomen: Normal bowel sounds, Soft, No tenderness Extremities: No edema Medications Current Medications Medications Dose Ordered Sig/Ida Route Start Time Stop Time Status Last Admin Dose Admin Clindamycin Phosphate 50 ml @ 50 mls/hr Q8HR IV 10/16/25 06:00 10/19/25 06:05 50 MLS/HR Pantoprazole Sodium 40 mg DAILY IV 10/16/25 10:00 10/18/25 09:46 40 MG Iron Sucrose 110 ml @ 110 mls/hr DAILY@1200 IV 10/16/25 12:00 10/20/25 11:59 10/18/25 14:35 110 MLS/HR Acetaminophen 650 mg Q6HP PRN PO 10/16/25 07:30 Albuterol 2.5 mg Q4HPRN PRN NEB 10/16/25 07:45 10/19/25 02:34 2.5 MG Ipratropium [place] 0.5 mg Q4HR NEB 10/16/25 10:00 10/19/25 09:22 0.5 MG Acetaminophen/ Hydrocodone Bitart 1 tab Q6HPRN PRN PO 10/16/25 21:00 Furosemide 40 mg DAILY PO 10/19/25 10:00 Metoprolol Tartrate 50 mg BID PO 10/18/25 22:00 10/18/25 21:04 50 MG Laboratory Results Laboratory Tests 10/19/25 05:16 Chemistry Test 10/19/25 05:16 Albumin 3.3 g/dL (3.2-4.8) Calcium Level 8.9 mg/dL (8.7-10.4) Magnesium Level 1.6 mg/dL (1.6-2.6) Total Protein 6.2 g/dL (5.7-8.2) LFT Test 10/19/25 05:16 Alanine Aminotransferase (ALT) 24 U/L (7-40) Alkaline Phosphatase 71 U/L (46-116) Aspartate Amino Transferase (AST) 28 U/L (13-40) Total Bilirubin 0.2 mg/dL (0.2-1.0) Urinalysis Test 10/16/25 18:35 Urine Color Light-yellow (Yellow) Urine Clarity Clear (Clear) Urine pH 5.0 (5.0-9.0) Urine Specific [place] 1.013 (1.001-1.035) Urine Protein Negative (Negative) Urine Ketones Trace (Negative) Urine Blood Negative /uL (Negative) Urine Nitrite Negative (Negative) Urine Bilirubin Negative (Negative) Urine Urobilinogen Normal mg/dL (Negative) Urine Leukocyte Esterase Negative /uL (Negative) Urine RBC <1 /hpf (0 - 4) Urine Microscopic WBC < 1 /HPF (0-5) Urine Squamous Epithelial Cells Few /hpf (<5) Urine Bacteria None seen /hpf (None Seen) Urine Hyaline Casts Few /lpf (0 - 2) Urine Creatinine 71.74 mg/dL (30.0-125.0) Urine Protein/Creatinine Ratio 0.23 Urine Sodium < 10 mmol/L (40-220) L Urine Glucose Normal mg/dL (Normal) Urine Total Protein 16.4 mg/dL (1-14) H Microbiology Microbiology Date/Time Source Procedure Growth Status 10/16/25 22:51 Nose MRSA Screen - Final Complete Assessment/Plan Assessment/Plan Acute hypoxic respiratory failure Acute on chronic heart failure with preserved ejection fraction Hypertension Transaminitis COPD Chronic respiratory failure Bilateral lower extremity cellulitis Chronic anemia Acute kidney injury due to vasomotor nephropathy Plan Bolus 500 mL NS IV fluids NS 100 mL an hour IV antibiotics for the cellulitis clindamycin IV IV iron Nephrology consult Pulmonary consult Monitor the kidney function Full code 10/17/2025: Lower the IV fluids rate to 60 mL an hour Continue IV antibiotics for the cellulitis clindamycin Echo done a month ago showed ejection fraction 65% IV iron 10/18/2025: Discontinue IV fluids Continue clindamycin IV Wound care Give Lasix 40 mg daily Monitor closely Physical therapy 10/19/2025: CHF: Continue Lasix 40 mg twice a day IV Bilateral lower extremity cellulitis Continue clindamycin IV Anemia: IV iron No IV fluids TOM: Monitor the kidney function Nephrology consult Diastolic CHF: Echocardiogram was done 1 month ago showed ejection fraction 65% Hypomagnesemia: Replace IV Plan discussed with: Patient My Orders Orders - JACKIE BAUTISTA MD Procedure Category Date Status Time Refer To Physical ALINE 10/18/25 In Process Therapy 09:53 * Wound Consult CONS 10/18/25 Transmitted Furosemide Tablet PHA 10/19/25 In Process (Lasix Tablet) 10:00 * Wound Consult CONS 10/18/25 Transmitted Metoprolol Tartrate PHA 10/18/25 In Process Tablet (Lopressor Ta 22:00 Date of Service: Oct 19, 2025 Billing Provider: JACKIE BAUTISTA MD Common Visit Codes: NOT BILLABLE JACKIE BAUTISTA MD Oct 19, 2025 09:41
[2025-10-19] MEDS ORDERED: FUROSEMIDE 20 MG TAB PO SCH (10:00)
[2025-10-19] MEDS: MAGNESIUM SULFATE 1GM/100ML 100 ML IV SCH (10:02)
--- NOTE | 2025-10-19 12:26 | CONS ---
Pharmacy Clinical Information: From Heart Failure Fallout Report on CQM Application, Lauren Delcid is a 65 year old female with PMH of HFpEF, HTN, COPD /asthma not on home oxygen, dyslipidemia, GERD, pulmonary hypertension, obesity, schizophrenia, osteoarthritis, chronic low back pain, and depression Her home medications for CHF include atorvastatin, losartan, metoprolol tartrate Her inpatient medications for CHF include metoprolol tartrate. Consider switching metoprolol tartrate to metoprolol succinate for more consistent with HFrEF GDMT Recommend initiating an SGLT2 inhibitor (such as empagliflozin or dapagliflozin) as part of guideline-directed medical therapy for HFpEF. SGLT2 inhibitors have demonstrated significant benefit in reducing heart failure hospitalizations and improving cardiovascular mortality. Renal function should be assessed prior to SGLT2 initiation (eGFR ?2025 mL/min/1.73 m), and monitoring for volume status, blood pressure and adverse effects is recommended. Her blood pressure is currently low, average 100/60 [facility] Oct 19, 2025 12:26
[2025-10-19] MEDS: POTASSIUM EFFERVESENT TAB 25 MEQ PO ONE (12:29)
--- NOTE | 2025-10-19 12:34 | DVHPN2 ---
Progress Note Date Seen: Oct 19, 2025 Medical Necessity Reason Pt with a Central, PICC or Fol: No Objective vital signs Vital Sign Date Time Temp Pulse Resp B/P (MAP) Pulse Ox O2 Delivery O2 Flow Rate FiO2 10/19/25 10:04 97 116/63 10/19/25 10:00 97 Nasal Cannula* 2 28 10/19/25 09:28 19 10/19/25 09:00 98.1 98.1 Total Intake and Output 10/18/25 10/18/25 10/19/25 15:00 23:00 07:00 Intake Total 230 ml 975 ml 650 ml Balance 230 ml 975 ml 650 ml medications Current Medications Medications Dose Ordered Sig/Ida Route Start Time Stop Time Status Last Admin Dose Admin Clindamycin Phosphate 50 ml @ 50 mls/hr Q8HR IV 10/16/25 06:00 10/19/25 06:05 50 MLS/HR Pantoprazole Sodium 40 mg DAILY IV 10/16/25 10:00 10/19/25 10:00 40 MG Iron Sucrose 110 ml @ 110 mls/hr DAILY@1200 IV 10/16/25 12:00 10/20/25 11:59 10/18/25 14:35 110 MLS/HR Acetaminophen 650 mg Q6HP PRN PO 10/16/25 07:30 Albuterol 2.5 mg Q4HPRN PRN NEB 10/16/25 07:45 10/19/25 02:34 2.5 MG Ipratropium [place] 0.5 mg Q4HR NEB 10/16/25 10:00 10/19/25 09:22 0.5 MG Acetaminophen/ Hydrocodone Bitart 1 tab Q6HPRN PRN PO 10/16/25 21:00 Metoprolol Tartrate 50 mg BID PO 10/18/25 22:00 10/19/25 10:04 50 MG Furosemide 40 mg BIDD IV 10/19/25 18:00 Guaifenesin 200 mg Q4HP PRN PO 10/19/25 11:15 laboratory and microbiology Laboratory Tests 10/19/25 05:16 Test 10/19/25 05:16 Range/Units Serum Glucose 100 74-106 mg/dL Microbiology Date/Time Source Procedure Growth Status 10/16/25 22:51 Nose MRSA Screen - Final Complete Problem List/Assessment/Plan Problem List/Assessment/Plan Acute kidney injury hemodynamically mediated in the setting of volume depletion Sepsis secondary to cellulitis Small bowel obstruction Anemia CKD II Renal function has improved with hydration No indication for dialysis Patient completed IV fluid hydration now currently discontinued started on lasix Plan discussed with: Patient CARIDAD COKER MD Oct 19, 2025 12:34
[2025-10-19] MEDS: FUROSEMIDE 40 MG/4 ML VIAL IV SCH (17:31)
--- NOTE | 2025-10-19 23:50 | DVHPN2 ---
Subjective DOS: 10/19/2025 Patient seen and examined at bedside. Remains on supplemental oxygen Overnight events reviewed. Changes from previous H/P or p: No Changes Skin: Rash Objective Vitals Vital Signs Date Time Temp Pulse Resp B/P (MAP) Pulse Ox O2 Delivery O2 Flow Rate FiO2 10/19/25 22:49 108 132/67 10/19/25 22:12 18 100 10/19/25 22:06 Nasal Cannula 2.0 10/19/25 22:06 28 10/19/25 21:00 98.0 98.0 Intake/Output Intake and Output 10/19/25 07:00 Intake Total 1855 ml Balance 1855 ml Intake Oral 1755 ml IV Total 100 ml # Voids 9 # Bowel Movements 6 Exam Gen.: Patient lying in bed in no apparent distress. On supplemental oxygen. Head: Normocephalic, atraumatic. Eyes: EOMI/PERRLA. Ears: Normal hearing. Normal anatomy. Neck/trachea: Trachea midline, supple. Nose: Normal external anatomy. Mouth: Moist mucous membranes. Chest: Decreased air entry bilaterally. No wheezing or rhonchi. Cardiovascular: Positive S1, positive S2. Regular rate and rhythm. Abdomen: Positive bowel sounds in all 4 quadrants. Soft, non-tender, non- distended. : Deferred. Rectal: Deferred. Skin: Warm, dry. Intact. Extremities: 2+ radial pulses bilaterally. No lower extremity edema. Neuro: Awake, alert, oriented x3. No gross motor or sensory deficits. Cranial nerves II through XII intact. Gait not assessed. General Appearance: Alert, Oriented X3, Cooperative, No acute distress Lungs: Other (Bilateral rhonchi) Cardiovascular: Regular rate, Normal S1, Normal S2, No murmurs Abdomen: Normal bowel sounds, Soft, No tenderness Extremities: No edema Medications Current Medications Medications Dose Ordered Sig/Ida Route Start Time Stop Time Status Last Admin Dose Admin Clindamycin Phosphate 50 ml @ 50 mls/hr Q8HR IV 10/16/25 06:00 10/19/25 21:51 50 MLS/HR Pantoprazole Sodium 40 mg DAILY IV 10/16/25 10:00 10/19/25 10:00 40 MG Iron Sucrose 110 ml @ 110 mls/hr DAILY@1200 IV 10/16/25 12:00 10/20/25 11:59 10/19/25 12:30 110 MLS/HR Acetaminophen 650 mg Q6HP PRN PO 10/16/25 07:30 Albuterol 2.5 mg Q4HPRN PRN NEB 10/16/25 07:45 10/19/25 02:34 2.5 MG Ipratropium [place] 0.5 mg Q4HR NEB 10/16/25 10:00 10/19/25 22:06 0.5 MG Acetaminophen/ Hydrocodone Bitart 1 tab Q6HPRN PRN PO 10/16/25 21:00 Metoprolol Tartrate 50 mg BID PO 10/18/25 22:00 10/19/25 21:49 50 MG Furosemide 40 mg BIDD IV 10/19/25 18:00 10/19/25 17:31 40 MG Guaifenesin 200 mg Q4HP PRN PO 10/19/25 11:15 10/19/25 17:29 200 MG Laboratory Results Laboratory Tests 10/19/25 05:16 Chemistry Test 10/19/25 05:16 Albumin 3.3 g/dL (3.2-4.8) Calcium Level 8.9 mg/dL (8.7-10.4) Magnesium Level 1.6 mg/dL (1.6-2.6) Total Protein 6.2 g/dL (5.7-8.2) LFT Test 10/19/25 05:16 Alanine Aminotransferase (ALT) 24 U/L (7-40) Alkaline Phosphatase 71 U/L (46-116) Aspartate Amino Transferase (AST) 28 U/L (13-40) Total Bilirubin 0.2 mg/dL (0.2-1.0) Urinalysis Test 10/16/25 18:35 Urine Color Light-yellow (Yellow) Urine Clarity Clear (Clear) Urine pH 5.0 (5.0-9.0) Urine Specific [place] 1.013 (1.001-1.035) Urine Protein Negative (Negative) Urine Ketones Trace (Negative) Urine Blood Negative /uL (Negative) Urine Nitrite Negative (Negative) Urine Bilirubin Negative (Negative) Urine Urobilinogen Normal mg/dL (Negative) Urine Leukocyte Esterase Negative /uL (Negative) Urine RBC <1 /hpf (0 - 4) Urine Microscopic WBC < 1 /HPF (0-5) Urine Squamous Epithelial Cells Few /hpf (<5) Urine Bacteria None seen /hpf (None Seen) Urine Hyaline Casts Few /lpf (0 - 2) Urine Creatinine 71.74 mg/dL (30.0-125.0) Urine Protein/Creatinine Ratio 0.23 Urine Sodium < 10 mmol/L (40-220) L Urine Glucose Normal mg/dL (Normal) Urine Total Protein 16.4 mg/dL (1-14) H Microbiology Microbiology Date/Time Source Procedure Growth Status 10/16/25 22:51 Nose MRSA Screen - Final Complete Assessment/Plan Assessment/Plan Impression: Acute on chronic hypoxic respiratory failure Dependence on supplemental oxygen COPD/asthma Acute on chronic heart failure with preserved ejection fraction Acute kidney injury Anemia Morbid obesity BMI of 40.3 Hx of nicotine dependence Events: Remains on supplemental oxygen, 2 LPM [place] Taper O2 as tolerated BiPAP PRN. Continue bronchodilators Continue antibiotics Start antitussive PRN cough Blood pressure control Monitor hemoglobin - trended down to 7.9 g/dL Transfuse if less than 7.0 g/dL. Continue iron supplementation Diurese to maintain euvolemia - on Lasix Monitor renal function. Monitor electrolytes. Supplement as necessary. K, mag supplementation Monitor ins and outs. Protonix BID for GI prophylaxis Wound care. Labs and imaging reviewed. Rest of plan as noted below. Plan: Supplemental oxygen Titrate to keep O2 sats above 92%. Continue bronchodilators. Continue antibiotics Follow up Cardiology recs Monitor hemoglobin Transfuse if less than 7.0 g/dL. Iron supplementation Protonix for GI ppx Monitor renal function. Monitor electrolytes. Supplement as necessary. Monitor ins and outs. Recommend diet and lifestyle modifications for weight reduction Obesity complicates all care GI/DVT prophylaxis. Prognosis: Poor given patient's multiple co-morbidities. Rest of plan per hospitalist and other consultants. Thank you, Dr. Young, for allowing me to participate in this patient's care. Further recommendations will depend on the patient's clinical course. Please do not hesitate to contact me if you have any questions or concerns. This medical document was created using an electronic medical record system with [employer] system. Although these documentations are being carefully reviewed, there may still be some phonetic and typographical changes. The errors are purely typographical, due to imperfection on the software program, and do not reflect any compromise in the patient's medical care. Plan discussed with: Patient, Other (PIETRO Amador) My Orders Orders - MILADY JONES MD Procedure Category Date Status Time Guaifenesin Plain PHA 10/19/25 In Process Liquid (Robitussin Jeff 11:15 Visit Coding Pulmonary Billing Provider: MILADY JONES MD Date of Service if different f: Oct 19, 2025 Common Visit Codes: [id number] INP/OBS CARE(HIGH) MILADY JONES MD Oct 19, 2025 23:50
[2025-10-20] VITALS (17 sets, daily range): BP systolic 115–141; BP diastolic 54–73; PULSE 78–105; RESP 15–18; TEMP 97.6–98; O2SAT 90–100
[2025-10-20 06:37] LABS: Hematocrit 27.8 % (36.0-46.0); Hemoglobin 9.0 g/dL (12.2-16.2); Mean Corpuscular Hemoglobin 29.4 pg (28.0-32.0); Mean Corpuscular Volume 90.9 fL (80.0-100.0); Nucleated Red Blood Cells % 0.2 %
[2025-10-20 06:44] LABS: Anion Gap 10 (5-15); Carbon Dioxide 30 mmol/L (20-31); Chloride 101 mmol/L (98-107); Potassium 3.9 mmol/L (3.5-5.1); Sodium 141 mmol/L (136-145)
[2025-10-20 06:45] LABS: Calcium 9.3 mg/dL (8.7-10.4)
[2025-10-20 06:50] LABS: BUN/Creatinine Ratio 6.7 (10.0-20.0); Glucose 102 mg/dL (74-106)
[2025-10-20 06:53] LABS: Blood Urea Nitrogen 6 mg/dL (9-23); Magnesium 1.6 mg/dL (1.6-2.6)
--- NOTE | 2025-10-20 12:24 | DVH ---
INDICATION: cough TECHNIQUE: Frontal view of the chest. COMPARISON: XY CHEST XRAY 1 VIEW on DOS: 10/15/25, XY CHEST TWO VIEWS ROUTINE on DOS: 09/15/25, CR CHEST 2 VIEW on DOS: 05/15/24 FINDINGS: . The heart and mediastinal contours are grossly unremarkable. There is no evidence of pleural disease. The lungs are clear. The bony structures of the chest are intact without fracture. IMPRESSION: 1. No evidence of acute disease.
[2025-10-20] MEDS: methylPREDNISolone SOD SUCC 125 MG/2 ML VL IV ONE (12:29)
[2025-10-20] MEDS: DOXYCYCLINE 100MG/100ML 100 ML IV SCH (13:26)
--- NOTE | 2025-10-20 13:36 | DVHPN2 ---
Progress Note Date Seen: Oct 20, 2025 Medical Necessity Reason Pt with a Central, PICC or Fol: No Objective vital signs Vital Sign Date Time Temp Pulse Resp B/P (MAP) Pulse Ox O2 Delivery O2 Flow Rate FiO2 10/20/25 12:37 98.0 87 16 119/54 (75) 95 98.0 10/20/25 10:00 Nasal Cannula* 2 28 Total Intake and Output 10/19/25 10/19/25 10/20/25 15:00 23:00 07:00 Intake Total 360 ml 650 ml 850 ml Balance 360 ml 650 ml 850 ml medications Current Medications Medications Dose Ordered Sig/Ida Route Start Time Stop Time Status Last Admin Dose Admin Pantoprazole Sodium 40 mg DAILY IV 10/16/25 10:00 10/20/25 09:32 40 MG Acetaminophen 650 mg Q6HP PRN PO 10/16/25 07:30 Albuterol 2.5 mg Q4HPRN PRN NEB 10/16/25 07:45 10/20/25 10:29 2.5 MG Ipratropium [place] 0.5 mg Q4HR NEB 10/16/25 10:00 10/20/25 10:29 0.5 MG Acetaminophen/ Hydrocodone Bitart 1 tab Q6HPRN PRN PO 10/16/25 21:00 Metoprolol Tartrate 50 mg BID PO 10/18/25 22:00 10/20/25 09:33 50 MG Furosemide 40 mg BIDD IV 10/19/25 18:00 10/20/25 05:03 40 MG Guaifenesin 200 mg Q4HP PRN PO 10/19/25 11:15 10/20/25 08:04 200 MG Doxycycline Hyclate 100 ml @ 50 mls/hr Q12H IV 10/20/25 10:15 10/20/25 13:26 50 MLS/HR Methylprednisolone Sodium Succinate 40 mg BID IV 10/20/25 22:00 Ceftriaxone Sodium 50 ml @ 100 mls/hr DAILY@09 IV 10/21/25 09:00 Examination: GENERAL:Normal, CVS:Normal laboratory and microbiology Laboratory Tests 10/20/25 05:46 Test 10/20/25 05:46 Range/Units Serum Glucose 102 74-106 mg/dL Microbiology Date/Time Source Procedure Growth Status 10/16/25 22:51 Nose MRSA Screen - Final Complete Problem List/Assessment/Plan Problem List/Assessment/Plan Acute kidney injury hemodynamically mediated in the setting of volume depletion Sepsis secondary to cellulitis Small bowel obstruction Anemia CKD II Renal function has improved with hydration . sha has resolved No indication for dialysis Patient completed IV fluid hydration now currently discontinued started on lasix no new recs will sign off Plan discussed with: Patient CARIDAD COKER MD Oct 20, 2025 13:36
--- NOTE | 2025-10-20 14:17 | ECG ---
[facility] Test Date: 2025-10-15 Test Time: 16:48:32 Pat Name: KARISHMA MILLER Department: ED Room: 0248T A Gender: F Salon Assistant: SUZANNE : 1960 Requested By: KRISTEN DAILY Order Number: [id number] Reading MD: Lenin Dwyer Measurements Intervals [place] Rate: 74 P: 14 IN: 155 QRS: 21 QRSD: 118 T: 55 QT: 446 QTc: 495 Interpretive Statements Sinus rhythm Probable left atrial enlargement Incomplete left bundle branch block Low voltage, precordial leads Electronically Signed On 10-21-2025 8:32:16 PST by Lenin Dwyer Please click the below link to view image of tracing.
--- NOTE | 2025-10-20 14:34 | DVHPN2 ---
Subjective More congested and complaining of more cough today Changes from previous H/P or p: Changes Skin: Rash Objective Vitals Vital Signs Date Time Temp Pulse Resp B/P (MAP) Pulse Ox O2 Delivery O2 Flow Rate FiO2 10/20/25 14:04 83 15 95 10/20/25 12:37 98.0 119/54 (75) 98.0 10/20/25 10:00 Nasal Cannula* 2 28 Intake/Output Intake and Output 10/20/25 07:00 Intake Total 1860 ml Balance 1860 ml Intake Oral 1350 ml IV Total 510 ml # Voids 8 # Bowel Movements 3 General Appearance: Alert, Oriented X3, Cooperative, No acute distress Lungs: Other (Bilateral rhonchi) Cardiovascular: Regular rate, Normal S1, Normal S2, No murmurs Abdomen: Normal bowel sounds, Soft, No tenderness Extremities: No edema Medications Current Medications Medications Dose Ordered Sig/Ida Route Start Time Stop Time Status Last Admin Dose Admin Pantoprazole Sodium 40 mg DAILY IV 10/16/25 10:00 10/20/25 09:32 40 MG Acetaminophen 650 mg Q6HP PRN PO 10/16/25 07:30 Albuterol 2.5 mg Q4HPRN PRN NEB 10/16/25 07:45 10/20/25 14:04 2.5 MG Ipratropium [place] 0.5 mg Q4HR NEB 10/16/25 10:00 10/20/25 14:04 0.5 MG Acetaminophen/ Hydrocodone Bitart 1 tab Q6HPRN PRN PO 10/16/25 21:00 Metoprolol Tartrate 50 mg BID PO 10/18/25 22:00 10/20/25 09:33 50 MG Furosemide 40 mg BIDD IV 10/19/25 18:00 10/20/25 05:03 40 MG Guaifenesin 200 mg Q4HP PRN PO 10/19/25 11:15 10/20/25 08:04 200 MG Doxycycline Hyclate 100 ml @ 50 mls/hr Q12H IV 10/20/25 10:15 10/20/25 13:26 50 MLS/HR Methylprednisolone Sodium Succinate 40 mg BID IV 10/20/25 22:00 Ceftriaxone Sodium 50 ml @ 100 mls/hr DAILY@09 IV 10/21/25 09:00 Laboratory Results Laboratory Tests 10/20/25 05:46 Chemistry Test 10/20/25 05:46 Calcium Level 9.3 mg/dL (8.7-10.4) Magnesium Level 1.6 mg/dL (1.6-2.6) Urinalysis Test 10/16/25 18:35 Urine Color Light-yellow (Yellow) Urine Clarity Clear (Clear) Urine pH 5.0 (5.0-9.0) Urine Specific [place] 1.013 (1.001-1.035) Urine Protein Negative (Negative) Urine Ketones Trace (Negative) Urine Blood Negative /uL (Negative) Urine Nitrite Negative (Negative) Urine Bilirubin Negative (Negative) Urine Urobilinogen Normal mg/dL (Negative) Urine Leukocyte Esterase Negative /uL (Negative) Urine RBC <1 /hpf (0 - 4) Urine Microscopic WBC < 1 /HPF (0-5) Urine Squamous Epithelial Cells Few /hpf (<5) Urine Bacteria None seen /hpf (None Seen) Urine Hyaline Casts Few /lpf (0 - 2) Urine Creatinine 71.74 mg/dL (30.0-125.0) Urine Protein/Creatinine Ratio 0.23 Urine Sodium < 10 mmol/L (40-220) L Urine Glucose Normal mg/dL (Normal) Urine Total Protein 16.4 mg/dL (1-14) H Microbiology Microbiology Date/Time Source Procedure Growth Status 10/16/25 22:51 Nose MRSA Screen - Final Complete Assessment/Plan Assessment/Plan Acute hypoxic respiratory failure Acute on chronic heart failure with preserved ejection fraction Hypertension Transaminitis COPD Chronic respiratory failure Bilateral lower extremity cellulitis Chronic anemia Acute kidney injury due to vasomotor nephropathy Plan Bolus 500 mL NS IV fluids NS 100 mL an hour IV antibiotics for the cellulitis clindamycin IV IV iron Nephrology consult Pulmonary consult Monitor the kidney function Full code 10/17/2025: Lower the IV fluids rate to 60 mL an hour Continue IV antibiotics for the cellulitis clindamycin Echo done a month ago showed ejection fraction 65% IV iron 10/18/2025: Discontinue IV fluids Continue clindamycin IV Wound care Give Lasix 40 mg daily Monitor closely Physical therapy 10/19/2025: CHF: Continue Lasix 40 mg twice a day IV Bilateral lower extremity cellulitis Continue clindamycin IV Anemia: IV iron No IV fluids TOM: Monitor the kidney function Nephrology consult Diastolic CHF: Echocardiogram was done 1 month ago showed ejection fraction 65% Hypomagnesemia: Replace IV 10/20/2025: Continue IV Lasix Continue IV antibiotics Change antibiotics to Rocephin and doxycycline Add steroids Oxygen as needed Med neb treatments as needed Monitor closely Plan discussed with: Patient My Orders Orders - JACKIE BAUTISTA MD Procedure Category Date Status Time Cleanse Wound With ALINE 10/19/25 In Process Wound Clean 14:33 Chest Portable XY 10/20/25 Resulted 10:15 Doxycycline PHA 10/20/25 In Process 100mg/100ml 10:15 Methylprednisolone PHA 10/20/25 In Process Sod Succ (Solu Medrol 22:00 Ceftriaxone 1gm/50ml PHA 10/21/25 In Process (Rocephin) 09:00 Date of Service: Oct 20, 2025 Billing Provider: JACKIE BAUTISTA MD Common Visit Codes: NOT BILLABLE JACKIE BAUTISTA MD Oct 20, 2025 14:34
[2025-10-20] MEDS: MAGNESIUM SULFATE 1GM/100ML 100 ML IV SCH (14:58)
[2025-10-20] MEDS: methylPREDNISolone SOD SUCC 40 MG/ML VL IV SCH (21:53)
[2025-10-21] VITALS (22 sets, daily range): BP systolic 127–165; BP diastolic 61–77; PULSE 91–101; RESP 17–18; TEMP 97.9–99.4; O2SAT 91–100
[2025-10-21 06:50] LABS: Chloride 98 mmol/L (98-107); Sodium 140 mmol/L (136-145)
[2025-10-21 06:51] LABS: Anion Gap 10 (5-15); Calcium 8.8 mg/dL (8.7-10.4)
[2025-10-21 06:56] LABS: BUN/Creatinine Ratio 11.0 (10.0-20.0)
[2025-10-21 06:57] LABS: Magnesium 1.8 mg/dL (1.6-2.6)
[2025-10-21 06:58] LABS: Blood Urea Nitrogen 8 mg/dL (9-23); Carbon Dioxide 32 mmol/L (20-31); Glucose 139 mg/dL (74-106); Potassium 3.3 mmol/L (3.5-5.1)
--- NOTE | 2025-10-21 07:53 | DVHPN2 ---
Subjective DOS: 10/20/2025 Patient seen and examined at bedside. Remains on supplemental oxygen Overnight events reviewed. Changes from previous H/P or p: No Changes Skin: Rash Objective Vitals Vital Signs Date Time Temp Pulse Resp B/P (MAP) Pulse Ox O2 Delivery O2 Flow Rate FiO2 10/21/25 06:44 93 17 99 10/21/25 06:38 Nasal Cannula* 2 28 10/21/25 05:20 127/70 10/21/25 05:00 97.9 97.9 Intake/Output Intake and Output 10/21/25 07:00 Intake Total 1200 ml Output Total 2000 ml Balance -800 ml Intake Oral 750 ml IV Total 450 ml Output Urine Total 2000 ml # Voids 4 # Bowel Movements 1 Exam Gen.: Patient lying in bed in no apparent distress. On supplemental oxygen. Head: Normocephalic, atraumatic. Eyes: EOMI/PERRLA. Ears: Normal hearing. Normal anatomy. Neck/trachea: Trachea midline, supple. Nose: Normal external anatomy. Mouth: Moist mucous membranes. Chest: Decreased air entry bilaterally. No wheezing or rhonchi. Cardiovascular: Positive S1, positive S2. Regular rate and rhythm. Abdomen: Positive bowel sounds in all 4 quadrants. Soft, non-tender, non- distended. : Deferred. Rectal: Deferred. Skin: Warm, dry. Intact. Extremities: 2+ radial pulses bilaterally. No lower extremity edema. Neuro: Awake, alert, oriented x3. No gross motor or sensory deficits. Cranial nerves II through XII intact. Gait not assessed. General Appearance: Alert, Oriented X3, Cooperative, No acute distress Lungs: Other (Bilateral rhonchi) Cardiovascular: Regular rate, Normal S1, Normal S2, No murmurs Abdomen: Normal bowel sounds, Soft, No tenderness Extremities: No edema Medications Current Medications Medications Dose Ordered Sig/Ida Route Start Time Stop Time Status Last Admin Dose Admin Pantoprazole Sodium 40 mg DAILY IV 10/16/25 10:00 10/20/25 09:32 40 MG Acetaminophen 650 mg Q6HP PRN PO 10/16/25 07:30 Albuterol 2.5 mg Q4HPRN PRN NEB 10/16/25 07:45 10/21/25 02:32 2.5 MG Ipratropium [place] 0.5 mg Q4HR NEB 10/16/25 10:00 10/21/25 06:38 0.5 MG Acetaminophen/ Hydrocodone Bitart 1 tab Q6HPRN PRN PO 10/16/25 21:00 Metoprolol Tartrate 50 mg BID PO 10/18/25 22:00 10/20/25 21:54 50 MG Furosemide 40 mg BIDD IV 10/19/25 18:00 10/21/25 05:20 40 MG Guaifenesin 200 mg Q4HP PRN PO 10/19/25 11:15 10/21/25 05:18 200 MG Doxycycline Hyclate 100 ml @ 50 mls/hr Q12H IV 10/20/25 10:15 10/20/25 21:53 50 MLS/HR Methylprednisolone Sodium Succinate 40 mg BID IV 10/20/25 22:00 10/20/25 21:53 40 MG Ceftriaxone Sodium 50 ml @ 100 mls/hr DAILY@09 IV 10/21/25 09:00 Laboratory Results Laboratory Tests 10/20/25 05:46 10/21/25 05:41 Chemistry Test 10/21/25 05:41 Calcium Level 8.8 mg/dL (8.7-10.4) Magnesium Level 1.8 mg/dL (1.6-2.6) Urinalysis Test 10/16/25 18:35 Urine Color Light-yellow (Yellow) Urine Clarity Clear (Clear) Urine pH 5.0 (5.0-9.0) Urine Specific [place] 1.013 (1.001-1.035) Urine Protein Negative (Negative) Urine Ketones Trace (Negative) Urine Blood Negative /uL (Negative) Urine Nitrite Negative (Negative) Urine Bilirubin Negative (Negative) Urine Urobilinogen Normal mg/dL (Negative) Urine Leukocyte Esterase Negative /uL (Negative) Urine RBC <1 /hpf (0 - 4) Urine Microscopic WBC < 1 /HPF (0-5) Urine Squamous Epithelial Cells Few /hpf (<5) Urine Bacteria None seen /hpf (None Seen) Urine Hyaline Casts Few /lpf (0 - 2) Urine Creatinine 71.74 mg/dL (30.0-125.0) Urine Protein/Creatinine Ratio 0.23 Urine Sodium < 10 mmol/L (40-220) L Urine Glucose Normal mg/dL (Normal) Urine Total Protein 16.4 mg/dL (1-14) H Microbiology Microbiology Date/Time Source Procedure Growth Status 10/16/25 22:51 Nose MRSA Screen - Final Complete Assessment/Plan Assessment/Plan Impression: Acute on chronic hypoxic respiratory failure Dependence on supplemental oxygen COPD/asthma Acute on chronic heart failure with preserved ejection fraction Acute kidney injury Anemia Morbid obesity BMI of 40.3 Hx of nicotine dependence Events: Remains on supplemental oxygen, 3 LPM [place] Taper O2 as tolerated BiPAP PRN. Continue bronchodilators Continue antibiotics Continue steroids Antitussive PRN cough Blood pressure control Monitor hemoglobin - trended up to 9.0 g/dL Transfuse if less than 7.0 g/dL. Iron supplementation Diurese to maintain euvolemia - on Lasix Monitor renal function. Monitor electrolytes. Supplement as necessary. Magnesium supplementation Monitor ins and outs. Protonix BID for GI prophylaxis Wound care. Labs and imaging reviewed. Rest of plan as noted below. Plan: Supplemental oxygen Titrate to keep O2 sats above 92%. Continue bronchodilators. Continue antibiotics Follow up Cardiology recs Monitor hemoglobin Transfuse if less than 7.0 g/dL. Iron supplementation Protonix for GI ppx Monitor renal function. Monitor electrolytes. Supplement as necessary. Monitor ins and outs. Recommend diet and lifestyle modifications for weight reduction Obesity complicates all care GI/DVT prophylaxis. Prognosis: Poor given patient's multiple co-morbidities. Rest of plan per hospitalist and other consultants. Thank you, Dr. Young, for allowing me to participate in this patient's care. Further recommendations will depend on the patient's clinical course. Please do not hesitate to contact me if you have any questions or concerns. This medical document was created using an electronic medical record system with [email or web address]ation system. Although these documentations are being carefully reviewed, there may still be some phonetic and typographical changes. The errors are purely typographical, due to imperfection on the software program, and do not reflect any compromise in the patient's medical care. Plan discussed with: Patient, Other (PIETRO Amador) Visit Coding Pulmonary Billing Provider: MILADY JONES MD Date of Service if different f: Oct 20, 2025 Common Visit Codes: [id number] INP/OBS CARE(HIGH) MILADY JONES MD Oct 21, 2025 07:53
[2025-10-21] MEDS: POTASSIUM CHL 20 Meq TABLET PO ONE (09:29)
--- NOTE | 2025-10-21 10:00 | DVHPN2 ---
Subjective Better Less cough Edema is better Changes from previous H/P or p: Changes Skin: Rash Objective Vitals Vital Signs Date Time Temp Pulse Resp B/P (MAP) Pulse Ox O2 Delivery O2 Flow Rate FiO2 10/21/25 09:30 95 165/77 10/21/25 08:38 98.5 18 95 98.5 10/21/25 06:38 Nasal Cannula* 2 28 Intake/Output Intake and Output 10/21/25 06:59 Intake Total 1200 ml Output Total 2000 ml Balance -800 ml Intake Oral 750 ml IV Total 450 ml Output Urine Total 2000 ml # Voids 4 # Bowel Movements 1 General Appearance: Alert, Oriented X3, Cooperative, No acute distress Lungs: Other (Bilateral rhonchi) Cardiovascular: Regular rate, Normal S1, Normal S2, No murmurs Abdomen: Normal bowel sounds, Soft, No tenderness Extremities: No edema Medications Current Medications Medications Dose Ordered Sig/Ida Route Start Time Stop Time Status Last Admin Dose Admin Pantoprazole Sodium 40 mg DAILY IV 10/16/25 10:00 10/21/25 09:29 40 MG Acetaminophen 650 mg Q6HP PRN PO 10/16/25 07:30 Albuterol 2.5 mg Q4HPRN PRN NEB 10/16/25 07:45 10/21/25 02:32 2.5 MG Ipratropium [place] 0.5 mg Q4HR NEB 10/16/25 10:00 10/21/25 06:38 0.5 MG Acetaminophen/ Hydrocodone Bitart 1 tab Q6HPRN PRN PO 10/16/25 21:00 Metoprolol Tartrate 50 mg BID PO 10/18/25 22:00 10/21/25 09:30 50 MG Furosemide 40 mg BIDD IV 10/19/25 18:00 10/21/25 05:20 40 MG Guaifenesin 200 mg Q4HP PRN PO 10/19/25 11:15 10/21/25 05:18 200 MG Doxycycline Hyclate 100 ml @ 50 mls/hr Q12H IV 10/20/25 10:15 10/20/25 21:53 50 MLS/HR Methylprednisolone Sodium Succinate 40 mg BID IV 10/20/25 22:00 10/21/25 09:29 40 MG Ceftriaxone Sodium 50 ml @ 100 mls/hr DAILY@09 IV 10/21/25 09:00 10/21/25 09:26 100 MLS/HR Magnesium Sulfate/ Dextrose 100 ml @ 100 mls/hr Q1HR IV 10/21/25 09:00 10/21/25 10:59 Laboratory Results Laboratory Tests 10/20/25 05:46 10/21/25 05:41 Chemistry Test 10/21/25 05:41 Calcium Level 8.8 mg/dL (8.7-10.4) Magnesium Level 1.8 mg/dL (1.6-2.6) Urinalysis Test 10/16/25 18:35 Urine Color Light-yellow (Yellow) Urine Clarity Clear (Clear) Urine pH 5.0 (5.0-9.0) Urine Specific [place] 1.013 (1.001-1.035) Urine Protein Negative (Negative) Urine Ketones Trace (Negative) Urine Blood Negative /uL (Negative) Urine Nitrite Negative (Negative) Urine Bilirubin Negative (Negative) Urine Urobilinogen Normal mg/dL (Negative) Urine Leukocyte Esterase Negative /uL (Negative) Urine RBC <1 /hpf (0 - 4) Urine Microscopic WBC < 1 /HPF (0-5) Urine Squamous Epithelial Cells Few /hpf (<5) Urine Bacteria None seen /hpf (None Seen) Urine Hyaline Casts Few /lpf (0 - 2) Urine Creatinine 71.74 mg/dL (30.0-125.0) Urine Protein/Creatinine Ratio 0.23 Urine Sodium < 10 mmol/L (40-220) L Urine Glucose Normal mg/dL (Normal) Urine Total Protein 16.4 mg/dL (1-14) H Microbiology Microbiology Date/Time Source Procedure Growth Status 10/16/25 22:51 Nose MRSA Screen - Final Complete Assessment/Plan Assessment/Plan Acute hypoxic respiratory failure Acute on chronic heart failure with preserved ejection fraction Hypertension Transaminitis COPD Chronic respiratory failure Bilateral lower extremity cellulitis Chronic anemia Acute kidney injury due to vasomotor nephropathy Plan Bolus 500 mL NS IV fluids NS 100 mL an hour IV antibiotics for the cellulitis clindamycin IV IV iron Nephrology consult Pulmonary consult Monitor the kidney function Full code 10/17/2025: Lower the IV fluids rate to 60 mL an hour Continue IV antibiotics for the cellulitis clindamycin Echo done a month ago showed ejection fraction 65% IV iron 10/18/2025: Discontinue IV fluids Continue clindamycin IV Wound care Give Lasix 40 mg daily Monitor closely Physical therapy 10/19/2025: CHF: Continue Lasix 40 mg twice a day IV Bilateral lower extremity cellulitis Continue clindamycin IV Anemia: IV iron No IV fluids TOM: Monitor the kidney function Nephrology consult Diastolic CHF: Echocardiogram was done 1 month ago showed ejection fraction 65% Hypomagnesemia: Replace IV 10/20/2025: Continue IV Lasix Continue IV antibiotics Change antibiotics to Rocephin and doxycycline Add steroids Oxygen as needed Med neb treatments as needed Monitor closely 10/21/2025: Continue IV antibiotics Rocephin and doxycycline IV steroids IV Lasix Replace potassium magnesium as needed Monitor closely Physical therapy Plan discussed with: Patient My Orders Orders - JACKIE BAUTISTA MD Procedure Category Date Status Time Chest Portable XY 10/20/25 Resulted 10:15 Doxycycline PHA 10/20/25 In Process 100mg/100ml 10:15 Methylprednisolone PHA 10/20/25 In Process Sod Succ (Solu Medrol 22:00 Ceftriaxone 1gm/50ml PHA 10/21/25 In Process (Rocephin) 09:00 Magnesium Sulfate PHA 10/21/25 In Process 1gm/100ml 09:00 Date of Service: Oct 21, 2025 Billing Provider: JACKIE BAUTISTA MD Common Visit Codes: NOT BILLABLE JACKIE BAUTISTA MD Oct 21, 2025 10:00
[2025-10-21] MEDS: MAGNESIUM SULFATE 1GM/100ML 100 ML IV SCH (10:26)
--- NOTE | 2025-10-21 14:58 | DVHPN2 ---
Progress Note Date Seen: Oct 21, 2025 Medical Necessity Reason Pt with a Central, PICC or Fol: No Objective vital signs Vital Sign Date Time Temp Pulse Resp B/P (MAP) Pulse Ox O2 Delivery O2 Flow Rate FiO2 10/21/25 14:33 91 18 100 10/21/25 14:27 Nasal Cannula* 2 28 10/21/25 13:00 98.4 127/61 (83) 98.4 Total Intake and Output 10/20/25 10/20/25 10/21/25 15:00 23:00 07:00 Intake Total 50 ml 800 ml 350 ml Output Total 2000 ml Balance 50 ml -1200 ml 350 ml medications Current Medications Medications Dose Ordered Sig/Ida Route Start Time Stop Time Status Last Admin Dose Admin Pantoprazole Sodium 40 mg DAILY IV 10/16/25 10:00 10/21/25 09:29 40 MG Acetaminophen 650 mg Q6HP PRN PO 10/16/25 07:30 Albuterol 2.5 mg Q4HPRN PRN NEB 10/16/25 07:45 10/21/25 02:32 2.5 MG Ipratropium [place] 0.5 mg Q4HR NEB 10/16/25 10:00 10/21/25 14:27 0.5 MG Acetaminophen/ Hydrocodone Bitart 1 tab Q6HPRN PRN PO 10/16/25 21:00 Metoprolol Tartrate 50 mg BID PO 10/18/25 22:00 10/21/25 09:30 50 MG Furosemide 40 mg BIDD IV 10/19/25 18:00 10/21/25 05:20 40 MG Guaifenesin 200 mg Q4HP PRN PO 10/19/25 11:15 10/21/25 05:18 200 MG Doxycycline Hyclate 100 ml @ 50 mls/hr Q12H IV 10/20/25 10:15 10/21/25 12:49 50 MLS/HR Methylprednisolone Sodium Succinate 40 mg BID IV 10/20/25 22:00 10/21/25 09:29 40 MG Ceftriaxone Sodium 50 ml @ 100 mls/hr DAILY@09 IV 10/21/25 09:00 10/21/25 09:26 100 MLS/HR Examination: GENERAL:Normal, CVS:Normal laboratory and microbiology Laboratory Tests 10/21/25 05:41 10/20/25 05:46 Test 10/21/25 05:41 Range/Units Serum Glucose 139 H 74-106 mg/dL Microbiology Date/Time Source Procedure Growth Status 10/16/25 22:51 Nose MRSA Screen - Final Complete Problem List/Assessment/Plan Problem List/Assessment/Plan Acute kidney injury hemodynamically mediated in the setting of volume depletion Sepsis secondary to cellulitis Small bowel obstruction Anemia CKD II Renal function has improved with hydration . sha has resolved No indication for dialysis Patient completed IV fluid hydration now currently discontinued started on lasix po potassium replacement today will sign off Plan discussed with: Patient CARIDAD COKER MD Oct 21, 2025 14:58
--- NOTE | 2025-10-21 23:40 | DVHPN2 ---
Subjective DOS: 10/21/2025 Patient seen and examined at bedside. Remains on supplemental oxygen Overnight events reviewed. Changes from previous H/P or p: No Changes Skin: Rash Objective Vitals Vital Signs Date Time Temp Pulse Resp B/P (MAP) Pulse Ox O2 Delivery O2 Flow Rate FiO2 10/21/25 22:37 92 138/96 10/21/25 21:00 99.1 18 99 99.1 10/21/25 20:00 Nasal Cannula* 2 28 Intake/Output Intake and Output 10/21/25 07:00 Intake Total 1200 ml Output Total 2000 ml Balance -800 ml Intake Oral 750 ml IV Total 450 ml Output Urine Total 2000 ml # Voids 4 # Bowel Movements 1 Exam Gen.: Patient lying in bed in no apparent distress. On supplemental oxygen. Head: Normocephalic, atraumatic. Eyes: EOMI/PERRLA. Ears: Normal hearing. Normal anatomy. Neck/trachea: Trachea midline, supple. Nose: Normal external anatomy. Mouth: Moist mucous membranes. Chest: Decreased air entry bilaterally. No wheezing or rhonchi. Cardiovascular: Positive S1, positive S2. Regular rate and rhythm. Abdomen: Positive bowel sounds in all 4 quadrants. Soft, non-tender, non- distended. : Deferred. Rectal: Deferred. Skin: Warm, dry. Intact. Extremities: 2+ radial pulses bilaterally. No lower extremity edema. Neuro: Awake, alert, oriented x3. No gross motor or sensory deficits. Cranial nerves II through XII intact. Gait not assessed. General Appearance: Alert, Oriented X3, Cooperative, No acute distress Lungs: Other (Bilateral rhonchi) Cardiovascular: Regular rate, Normal S1, Normal S2, No murmurs Abdomen: Normal bowel sounds, Soft, No tenderness Extremities: No edema Medications Current Medications Medications Dose Ordered Sig/Ida Route Start Time Stop Time Status Last Admin Dose Admin Pantoprazole Sodium 40 mg DAILY IV 10/16/25 10:00 10/21/25 09:29 40 MG Acetaminophen 650 mg Q6HP PRN PO 10/16/25 07:30 Albuterol 2.5 mg Q4HPRN PRN NEB 10/16/25 07:45 10/21/25 02:32 2.5 MG Ipratropium [place] 0.5 mg Q4HR NEB 10/16/25 10:00 10/21/25 22:21 0.5 MG Acetaminophen/ Hydrocodone Bitart 1 tab Q6HPRN PRN PO 10/16/25 21:00 Metoprolol Tartrate 50 mg BID PO 10/18/25 22:00 10/21/25 21:37 50 MG Furosemide 40 mg BIDD IV 10/19/25 18:00 10/21/25 17:33 40 MG Guaifenesin 200 mg Q4HP PRN PO 10/19/25 11:15 10/21/25 05:18 200 MG Doxycycline Hyclate 100 ml @ 50 mls/hr Q12H IV 10/20/25 10:15 10/21/25 21:36 50 MLS/HR Methylprednisolone Sodium Succinate 40 mg BID IV 10/20/25 22:00 10/21/25 21:36 40 MG Ceftriaxone Sodium 50 ml @ 100 mls/hr DAILY@09 IV 10/21/25 09:00 10/21/25 09:26 100 MLS/HR Laboratory Results Laboratory Tests 10/20/25 05:46 10/21/25 05:41 Chemistry Test 10/21/25 05:41 Calcium Level 8.8 mg/dL (8.7-10.4) Magnesium Level 1.8 mg/dL (1.6-2.6) Urinalysis Test 10/16/25 18:35 Urine Color Light-yellow (Yellow) Urine Clarity Clear (Clear) Urine pH 5.0 (5.0-9.0) Urine Specific [place] 1.013 (1.001-1.035) Urine Protein Negative (Negative) Urine Ketones Trace (Negative) Urine Blood Negative /uL (Negative) Urine Nitrite Negative (Negative) Urine Bilirubin Negative (Negative) Urine Urobilinogen Normal mg/dL (Negative) Urine Leukocyte Esterase Negative /uL (Negative) Urine RBC <1 /hpf (0 - 4) Urine Microscopic WBC < 1 /HPF (0-5) Urine Squamous Epithelial Cells Few /hpf (<5) Urine Bacteria None seen /hpf (None Seen) Urine Hyaline Casts Few /lpf (0 - 2) Urine Creatinine 71.74 mg/dL (30.0-125.0) Urine Protein/Creatinine Ratio 0.23 Urine Sodium < 10 mmol/L (40-220) L Urine Glucose Normal mg/dL (Normal) Urine Total Protein 16.4 mg/dL (1-14) H Microbiology Microbiology Date/Time Source Procedure Growth Status 10/16/25 22:51 Nose MRSA Screen - Final Complete Assessment/Plan Assessment/Plan Impression: Acute on chronic hypoxic respiratory failure Dependence on supplemental oxygen COPD/asthma Acute on chronic heart failure with preserved ejection fraction Acute kidney injury Anemia Morbid obesity BMI of 40.3 Hx of nicotine dependence Events: Remains on supplemental oxygen, 3 LPM NC Taper O2 as tolerated No acute overnight events. Continue bronchodilators Continue antibiotics Continue steroids Antitussive PRN cough Blood pressure control Monitor hemoglobin - trended up to 9.0 g/dL Transfuse if less than 7.0 g/dL. Iron supplementation Continue diuresis with Lasix Fluid restriction Monitor renal function. Monitor electrolytes. Supplement as necessary. Magnesium supplementation Maintain euvolemia Monitor ins and outs. Protonix BID for GI prophylaxis Wound care. Disposition per hospitalist. Labs and imaging reviewed. Rest of plan as noted below. Plan: Supplemental oxygen Titrate to keep O2 sats above 92%. BiPAP PRN. Continue bronchodilators. Continue antibiotics Follow up Cardiology recs Monitor hemoglobin Transfuse if less than 7.0 g/dL. Iron supplementation Protonix for GI ppx Monitor renal function. Monitor electrolytes. Supplement as necessary. Monitor ins and outs. Recommend diet and lifestyle modifications for weight reduction Obesity complicates all care GI/DVT prophylaxis. Prognosis: Poor given patient's multiple co-morbidities. Rest of plan per hospitalist and other consultants. Thank you, Dr. Young, for allowing me to participate in this patient's care. Further recommendations will depend on the patient's clinical course. Please do not hesitate to contact me if you have any questions or concerns. This medical document was created using an electronic medical record system with [employer] dictation system. Although these documentations are being carefully reviewed, there may still be some phonetic and typographical changes. The errors are purely typographical, due to imperfection on the software program, and do not reflect any compromise in the patient's medical care. Plan discussed with: Patient, Other (RN Don) Visit Coding Pulmonary Billing Provider: MILADY JONES MD Date of Service if different f: Oct 21, 2025 Common Visit Codes: [id number] INP/OBS CARE(HIGH) MILADY JONES MD Oct 21, 2025 23:40
[2025-10-22] VITALS (20 sets, daily range): BP systolic 118–147; BP diastolic 43–83; PULSE 77–100; RESP 14–20; TEMP 97–99.3; O2SAT 90–100
[2025-10-22 07:00] LABS: Hematocrit 26.2 % (36.0-46.0); Hemoglobin 8.6 g/dL (12.2-16.2); Mean Corpuscular Hemoglobin 29.9 pg (28.0-32.0); Mean Corpuscular Volume 90.8 fL (80.0-100.0); Nucleated Red Blood Cells % 0.1 %
[2025-10-22 07:05] LABS: Anion Gap 11 (5-15); Chloride 98 mmol/L (98-107); Potassium 3.9 mmol/L (3.5-5.1); Sodium 141 mmol/L (136-145)
[2025-10-22 07:06] LABS: Calcium 9.1 mg/dL (8.7-10.4); Carbon Dioxide 32 mmol/L (20-31)
[2025-10-22 07:11] LABS: BUN/Creatinine Ratio 15.4 (10.0-20.0); Blood Urea Nitrogen 14 mg/dL (9-23)
[2025-10-22 07:12] LABS: Magnesium 2.0 mg/dL (1.6-2.6)
[2025-10-22 07:18] LABS: Glucose 131 mg/dL (74-106)
[2025-10-23] VITALS (21 sets, daily range): BP systolic 140–158; BP diastolic 65–80; PULSE 68–100; RESP 16–20; TEMP 96.5–98.8; O2SAT 90–100
--- NOTE | 2025-10-23 07:59 | DVHPN2 ---
Subjective DOS: 10/22/2025 Patient seen and examined at bedside. Remains on supplemental oxygen Overnight events reviewed. Changes from previous H/P or p: No Changes Skin: Rash Objective Vitals Vital Signs Date Time Temp Pulse Resp B/P (MAP) Pulse Ox O2 Delivery O2 Flow Rate FiO2 10/23/25 06:27 82 16 99 10/23/25 06:20 Nasal Cannula* 2 28 10/23/25 05:44 150/65 10/23/25 05:00 97.6 97.6 Intake/Output Intake and Output 10/23/25 06:59 Intake Total 1700 ml Balance 1700 ml Intake Oral 1550 ml IV Total 150 ml # Voids 10 # Bowel Movements 2 Exam Gen.: Patient lying in bed in no apparent distress. On supplemental oxygen. Head: Normocephalic, atraumatic. Eyes: EOMI/PERRLA. Ears: Normal hearing. Normal anatomy. Neck/trachea: Trachea midline, supple. Nose: Normal external anatomy. Mouth: Moist mucous membranes. Chest: Decreased air entry bilaterally. No wheezing or rhonchi. Cardiovascular: Positive S1, positive S2. Regular rate and rhythm. Abdomen: Positive bowel sounds in all 4 quadrants. Soft, non-tender, non- distended. : Deferred. Rectal: Deferred. Skin: Warm, dry. Intact. Extremities: 2+ radial pulses bilaterally. No lower extremity edema. Neuro: Awake, alert, oriented x3. No gross motor or sensory deficits. Cranial nerves II through XII intact. Gait not assessed. General Appearance: Alert, Oriented X3, Cooperative, No acute distress Lungs: Other (Bilateral rhonchi) Cardiovascular: Regular rate, Normal S1, Normal S2, No murmurs Abdomen: Normal bowel sounds, Soft, No tenderness Extremities: No edema Medications Current Medications Medications Dose Ordered Sig/Ida Route Start Time Stop Time Status Last Admin Dose Admin Pantoprazole Sodium 40 mg DAILY IV 10/16/25 10:00 10/22/25 08:48 40 MG Acetaminophen 650 mg Q6HP PRN PO 10/16/25 07:30 Albuterol 2.5 mg Q4HPRN PRN NEB 10/16/25 07:45 10/23/25 06:20 2.5 MG Ipratropium [place] 0.5 mg Q4HR NEB 10/16/25 10:00 10/23/25 06:20 0.5 MG Acetaminophen/ Hydrocodone Bitart 1 tab Q6HPRN PRN PO 10/16/25 21:00 Metoprolol Tartrate 50 mg BID PO 10/18/25 22:00 10/22/25 21:30 50 MG Furosemide 40 mg BIDD IV 10/19/25 18:00 10/23/25 05:44 40 MG Guaifenesin 200 mg Q4HP PRN PO 10/19/25 11:15 10/23/25 01:54 200 MG Doxycycline Hyclate 100 ml @ 50 mls/hr Q12H IV 10/20/25 10:15 10/22/25 21:31 50 MLS/HR Methylprednisolone Sodium Succinate 40 mg BID IV 10/20/25 22:00 10/22/25 21:30 40 MG Ceftriaxone Sodium 50 ml @ 100 mls/hr DAILY@09 IV 10/21/25 09:00 10/22/25 08:42 100 MLS/HR Laboratory Results Laboratory Tests 10/22/25 05:51 Urinalysis Test 10/16/25 18:35 Urine Color Light-yellow (Yellow) Urine Clarity Clear (Clear) Urine pH 5.0 (5.0-9.0) Urine Specific [place] 1.013 (1.001-1.035) Urine Protein Negative (Negative) Urine Ketones Trace (Negative) Urine Blood Negative /uL (Negative) Urine Nitrite Negative (Negative) Urine Bilirubin Negative (Negative) Urine Urobilinogen Normal mg/dL (Negative) Urine Leukocyte Esterase Negative /uL (Negative) Urine RBC <1 /hpf (0 - 4) Urine Microscopic WBC < 1 /HPF (0-5) Urine Squamous Epithelial Cells Few /hpf (<5) Urine Bacteria None seen /hpf (None Seen) Urine Hyaline Casts Few /lpf (0 - 2) Urine Creatinine 71.74 mg/dL (30.0-125.0) Urine Protein/Creatinine Ratio 0.23 Urine Sodium < 10 mmol/L (40-220) L Urine Glucose Normal mg/dL (Normal) Urine Total Protein 16.4 mg/dL (1-14) H Microbiology Microbiology Date/Time Source Procedure Growth Status 10/16/25 22:51 Nose MRSA Screen - Final Complete Assessment/Plan Assessment/Plan Impression: Acute on chronic hypoxic respiratory failure Dependence on supplemental oxygen COPD/asthma Acute on chronic heart failure with preserved ejection fraction Acute kidney injury Anemia Morbid obesity BMI of 40.3 Hx of nicotine dependence Events: Remains on supplemental oxygen, 2 LPM [place] Taper O2 as tolerated No acute overnight events. Continue bronchodilators Continue antibiotics Continue steroids Antitussive PRN cough Blood pressure control Monitor hemoglobin - trended down to 8.6 g/dL Transfuse if less than 7.0 g/dL. Iron supplementation Continue diuresis with Lasix Fluid restriction Monitor renal function. Monitor electrolytes. Supplement as necessary. Maintain euvolemia Monitor ins and outs. Protonix BID for GI prophylaxis Wound care. Disposition per hospitalist. Labs and imaging reviewed. Rest of plan as noted below. Plan: Supplemental oxygen Titrate to keep O2 sats above 92%. BiPAP PRN. Continue bronchodilators. Continue antibiotics Follow up Cardiology recs Monitor hemoglobin Transfuse if less than 7.0 g/dL. Iron supplementation Protonix for GI ppx Monitor renal function. Monitor electrolytes. Supplement as necessary. Monitor ins and outs. Recommend diet and lifestyle modifications for weight reduction Obesity complicates all care GI/DVT prophylaxis. Prognosis: Poor given patient's multiple co-morbidities. Rest of plan per hospitalist and other consultants. Thank you, Dr. Young, for allowing me to participate in this patient's care. Further recommendations will depend on the patient's clinical course. Please do not hesitate to contact me if you have any questions or concerns. This medical document was created using an electronic medical record system with [employer] dictation system. Although these documentations are being carefully reviewed, there may still be some phonetic and typographical changes. The errors are purely typographical, due to imperfection on the software program, and do not reflect any compromise in the patient's medical care. Plan discussed with: Patient, Other (RN) Visit Coding Pulmonary Billing Provider: MILADY JONES MD Date of Service if different f: Oct 22, 2025 Common Visit Codes: [id number] INP/OBS CARE(HIGH) MILADY JONES MD Oct 23, 2025 07:59
--- NOTE | 2025-10-23 11:43 | DVHPN2 ---
Reviewed: Care Plan, H&P, Labs, Medications Changes from previous H/P or p: No Changes General: Per HPI Skin: Rash Objective Vitals Vital Signs Date Time Temp Pulse Resp B/P (MAP) Pulse Ox O2 Delivery O2 Flow Rate FiO2 10/23/25 10:07 80 16 100 10/23/25 10:01 Nasal Cannula 2.0 10/23/25 10:01 28 10/23/25 09:44 158/80 10/23/25 09:00 97.8 97.8 Intake/Output Intake and Output 10/23/25 07:00 Intake Total 1700 ml Balance 1700 ml Intake Oral 1550 ml IV Total 150 ml # Voids 10 # Bowel Movements 2 General Appearance: Alert, Oriented X3, Cooperative, No acute distress Lungs: Other (Bilateral rhonchi) Cardiovascular: Regular rate, Normal S1, Normal S2, No murmurs Abdomen: Normal bowel sounds, Soft, No tenderness Extremities: No edema Medications Current Medications Medications Dose Ordered Sig/Ida Route Start Time Stop Time Status Last Admin Dose Admin Pantoprazole Sodium 40 mg DAILY IV 10/16/25 10:00 10/23/25 09:44 40 MG Acetaminophen 650 mg Q6HP PRN PO 10/16/25 07:30 Albuterol 2.5 mg Q4HPRN PRN NEB 10/16/25 07:45 10/23/25 10:00 2.5 MG Ipratropium [place] 0.5 mg Q4HR NEB 10/16/25 10:00 10/23/25 10:01 0.5 MG Acetaminophen/ Hydrocodone Bitart 1 tab Q6HPRN PRN PO 10/16/25 21:00 Metoprolol Tartrate 50 mg BID PO 10/18/25 22:00 10/23/25 09:44 50 MG Furosemide 40 mg BIDD IV 10/19/25 18:00 10/23/25 05:44 40 MG Guaifenesin 200 mg Q4HP PRN PO 10/19/25 11:15 10/23/25 01:54 200 MG Doxycycline Hyclate 100 ml @ 50 mls/hr Q12H IV 10/20/25 10:15 10/23/25 10:43 50 MLS/HR Methylprednisolone Sodium Succinate 40 mg BID IV 10/20/25 22:00 10/23/25 09:42 40 MG Ceftriaxone Sodium 50 ml @ 100 mls/hr DAILY@09 IV 10/21/25 09:00 10/23/25 09:42 100 MLS/HR Laboratory Results Laboratory Tests 10/22/25 05:51 Urinalysis Test 10/16/25 18:35 Urine Color Light-yellow (Yellow) Urine Clarity Clear (Clear) Urine pH 5.0 (5.0-9.0) Urine Specific [place] 1.013 (1.001-1.035) Urine Protein Negative (Negative) Urine Ketones Trace (Negative) Urine Blood Negative /uL (Negative) Urine Nitrite Negative (Negative) Urine Bilirubin Negative (Negative) Urine Urobilinogen Normal mg/dL (Negative) Urine Leukocyte Esterase Negative /uL (Negative) Urine RBC <1 /hpf (0 - 4) Urine Microscopic WBC < 1 /HPF (0-5) Urine Squamous Epithelial Cells Few /hpf (<5) Urine Bacteria None seen /hpf (None Seen) Urine Hyaline Casts Few /lpf (0 - 2) Urine Creatinine 71.74 mg/dL (30.0-125.0) Urine Protein/Creatinine Ratio 0.23 Urine Sodium < 10 mmol/L (40-220) L Urine Glucose Normal mg/dL (Normal) Urine Total Protein 16.4 mg/dL (1-14) H Microbiology Microbiology Date/Time Source Procedure Growth Status 10/16/25 22:51 Nose MRSA Screen - Final Complete Labs and/or images reviewed: Labs reviewed by me, Image(s) reviewed by me Assessment/Plan Assessment/Plan Acute hypoxic respiratory failure Acute on chronic heart failure with preserved ejection fraction Hypertension Transaminitis COPD Chronic respiratory failure Bilateral lower extremity cellulitis Chronic anemia Acute kidney injury due to vasomotor nephropathy Plan Bolus 500 mL NS IV fluids NS 100 mL an hour IV antibiotics for the cellulitis clindamycin IV IV iron Nephrology consult Pulmonary consult Monitor the kidney function Full code 10/17/2025: Lower the IV fluids rate to 60 mL an hour Continue IV antibiotics for the cellulitis clindamycin Echo done a month ago showed ejection fraction 65% IV iron 10/18/2025: Discontinue IV fluids Continue clindamycin IV Wound care Give Lasix 40 mg daily Monitor closely Physical therapy 10/19/2025: CHF: Continue Lasix 40 mg twice a day IV Bilateral lower extremity cellulitis Continue clindamycin IV Anemia: IV iron No IV fluids TOM: Monitor the kidney function Nephrology consult Diastolic CHF: Echocardiogram was done 1 month ago showed ejection fraction 65% Hypomagnesemia: Replace IV 10/20/2025: Continue IV Lasix Continue IV antibiotics Change antibiotics to Rocephin and doxycycline Add steroids Oxygen as needed Med neb treatments as needed Monitor closely 10/21/2025: Continue IV antibiotics Rocephin and doxycycline IV steroids IV Lasix Replace potassium magnesium as needed Monitor closely Physical therapy 10/22/2025: pt would benefit from iv abx as her leg wound are severe continue with iv abx for now 10/23/2025: continue with iv abx wound care per nursing Plan discussed with: Patient Date of Service: Oct 22, 2025 Billing Provider: LENORA MEJIAS DO Common Visit Codes: [id number] INP/OBS CARE(HIGH) LENORA MEJIAS DO Oct 23, 2025 11:43
--- NOTE | 2025-10-23 22:56 | DVHPN2 ---
Subjective DOS: 10/23/2025 Patient seen and examined at bedside. Remains on supplemental oxygen Overnight events reviewed. Changes from previous H/P or p: No Changes Skin: Rash Objective Vitals Vital Signs Date Time Temp Pulse Resp B/P (MAP) Pulse Ox O2 Delivery O2 Flow Rate FiO2 10/23/25 22:23 92 16 100 10/23/25 22:17 Room Air* 0 21 10/23/25 21:00 97.7 143/72 (95) 97.7 Intake/Output Intake and Output 10/23/25 07:00 Intake Total 1700 ml Balance 1700 ml Intake Oral 1550 ml IV Total 150 ml # Voids 10 # Bowel Movements 2 Exam Gen.: Patient lying in bed in no apparent distress. On supplemental oxygen. Head: Normocephalic, atraumatic. Eyes: EOMI/PERRLA. Ears: Normal hearing. Normal anatomy. Neck/trachea: Trachea midline, supple. Nose: Normal external anatomy. Mouth: Moist mucous membranes. Chest: Decreased air entry bilaterally. No wheezing or rhonchi. Cardiovascular: Positive S1, positive S2. Regular rate and rhythm. Abdomen: Positive bowel sounds in all 4 quadrants. Soft, non-tender, non- distended. : Deferred. Rectal: Deferred. Skin: Warm, dry. Intact. Extremities: 2+ radial pulses bilaterally. No lower extremity edema. Neuro: Awake, alert, oriented x3. No gross motor or sensory deficits. Cranial nerves II through XII intact. Gait not assessed. General Appearance: Alert, Oriented X3, Cooperative, No acute distress Lungs: Other (Bilateral rhonchi) Cardiovascular: Regular rate, Normal S1, Normal S2, No murmurs Abdomen: Normal bowel sounds, Soft, No tenderness Extremities: No edema Medications Current Medications Medications Dose Ordered Sig/Ida Route Start Time Stop Time Status Last Admin Dose Admin Pantoprazole Sodium 40 mg DAILY IV 10/16/25 10:00 10/23/25 09:44 40 MG Acetaminophen 650 mg Q6HP PRN PO 10/16/25 07:30 Albuterol 2.5 mg Q4HPRN PRN NEB 10/16/25 07:45 10/23/25 22:17 2.5 MG Ipratropium [place] 0.5 mg Q4HR NEB 10/16/25 10:00 10/23/25 22:17 0.5 MG Acetaminophen/ Hydrocodone Bitart 1 tab Q6HPRN PRN PO 10/16/25 21:00 Metoprolol Tartrate 50 mg BID PO 10/18/25 22:00 10/23/25 09:44 50 MG Furosemide 40 mg BIDD IV 10/19/25 18:00 10/23/25 17:40 40 MG Guaifenesin 200 mg Q4HP PRN PO 10/19/25 11:15 10/23/25 12:04 200 MG Doxycycline Hyclate 100 ml @ 50 mls/hr Q12H IV 10/20/25 10:15 10/23/25 10:43 50 MLS/HR Ceftriaxone Sodium 50 ml @ 100 mls/hr DAILY@09 IV 10/21/25 09:00 10/23/25 09:42 100 MLS/HR Prednisone 20 mg BID PO 10/23/25 22:00 10/28/25 22:00 Laboratory Results Laboratory Tests 10/22/25 05:51 Urinalysis Test 10/16/25 18:35 Urine Color Light-yellow (Yellow) Urine Clarity Clear (Clear) Urine pH 5.0 (5.0-9.0) Urine Specific [place] 1.013 (1.001-1.035) Urine Protein Negative (Negative) Urine Ketones Trace (Negative) Urine Blood Negative /uL (Negative) Urine Nitrite Negative (Negative) Urine Bilirubin Negative (Negative) Urine Urobilinogen Normal mg/dL (Negative) Urine Leukocyte Esterase Negative /uL (Negative) Urine RBC <1 /hpf (0 - 4) Urine Microscopic WBC < 1 /HPF (0-5) Urine Squamous Epithelial Cells Few /hpf (<5) Urine Bacteria None seen /hpf (None Seen) Urine Hyaline Casts Few /lpf (0 - 2) Urine Creatinine 71.74 mg/dL (30.0-125.0) Urine Protein/Creatinine Ratio 0.23 Urine Sodium < 10 mmol/L (40-220) L Urine Glucose Normal mg/dL (Normal) Urine Total Protein 16.4 mg/dL (1-14) H Microbiology Microbiology Date/Time Source Procedure Growth Status 10/16/25 22:51 Nose MRSA Screen - Final Complete Assessment/Plan Assessment/Plan Impression: Acute on chronic hypoxic respiratory failure Dependence on supplemental oxygen COPD/asthma Acute on chronic heart failure with preserved ejection fraction Acute kidney injury Anemia Morbid obesity BMI of 40.3 Hx of nicotine dependence Events: Remains on supplemental oxygen, 3 LPM NC Taper O2 as tolerated No acute overnight events. Continue bronchodilators Continue antibiotics Continue steroids - taper as tolerated Prednisone 20 mg PO BID x5 days. Antitussive PRN cough Blood pressure control Monitor hemoglobin - trended down to 8.6 g/dL Transfuse if less than 7.0 g/dL. Iron supplementation Nephrology recs appreciated. Continue diuresis with Lasix Fluid restriction Monitor renal function. Monitor electrolytes. Supplement as necessary. Maintain euvolemia Monitor ins and outs. Protonix BID for GI prophylaxis Wound care. Disposition per hospitalist. Labs and imaging reviewed. Rest of plan as noted below. Plan: Supplemental oxygen Titrate to keep O2 sats above 92%. BiPAP PRN. Continue bronchodilators. Continue antibiotics Follow up Cardiology recs Monitor hemoglobin Transfuse if less than 7.0 g/dL. Iron supplementation Protonix for GI ppx Monitor renal function. Monitor electrolytes. Supplement as necessary. Monitor ins and outs. Recommend diet and lifestyle modifications for weight reduction Obesity complicates all care GI/DVT prophylaxis. Prognosis: Poor given patient's multiple co-morbidities. Rest of plan per hospitalist and other consultants. Thank you, Dr. Young, for allowing me to participate in this patient's care. Further recommendations will depend on the patient's clinical course. Please do not hesitate to contact me if you have any questions or concerns. This medical document was created using an electronic medical record system with [employer] dictation system. Although these documentations are being carefully reviewed, there may still be some phonetic and typographical changes. The errors are purely typographical, due to imperfection on the software program, and do not reflect any compromise in the patient's medical care. Plan discussed with: Patient, Other (PIETRO Mi) My Orders Orders - MILADY JONES MD Procedure Category Date Status Time Prednisone Tablet PHA 10/23/25 In Process 22:00 Visit Coding Pulmonary Billing Provider: MILADY JONES MD Date of Service if different f: Oct 23, 2025 Common Visit Codes: [id number] INP/OBS CARE(HIGH) MILADY JONES MD Oct 23, 2025 22:56
[2025-10-23] MEDS: predniSONE 20 MG TAB PO SCH (23:23)
[2025-10-24] VITALS (18 sets, daily range): BP systolic 122–155; BP diastolic 66–85; PULSE 77–99; RESP 16–19; TEMP 97.5–98.8; O2SAT 88–100
[2025-10-24] MEDS: ACETAMINOPHEN 325 MG TAB PO PRN (20:00)
--- NOTE | 2025-10-24 23:49 | DVHPN2 ---
Subjective DOS: 10/24/2025 Patient seen and examined at bedside. Remains on supplemental oxygen Overnight events reviewed. Changes from previous H/P or p: No Changes Skin: Rash Objective Vitals Vital Signs Date Time Temp Pulse Resp B/P (MAP) Pulse Ox O2 Delivery O2 Flow Rate FiO2 10/24/25 22:15 85 16 100 10/24/25 22:08 Room Air* 0 21 10/24/25 21:08 122/69 10/24/25 21:00 98.1 98.1 Intake/Output Intake and Output 10/24/25 07:00 Intake Total 1156 ml Output Total 1200 ml Balance -44 ml Intake Oral 906 ml IV Total 250 ml Output Urine Total 1200 ml # Voids 3 # Bowel Movements 2 Exam Gen.: Patient lying in bed in no apparent distress. On supplemental oxygen. Head: Normocephalic, atraumatic. Eyes: EOMI/PERRLA. Ears: Normal hearing. Normal anatomy. Neck/trachea: Trachea midline, supple. Nose: Normal external anatomy. Mouth: Moist mucous membranes. Chest: Decreased air entry bilaterally. No wheezing or rhonchi. Cardiovascular: Positive S1, positive S2. Regular rate and rhythm. Abdomen: Positive bowel sounds in all 4 quadrants. Soft, non-tender, non- distended. : Deferred. Rectal: Deferred. Skin: Warm, dry. Intact. Extremities: 2+ radial pulses bilaterally. No lower extremity edema. Neuro: Awake, alert, oriented x3. No gross motor or sensory deficits. Cranial nerves II through XII intact. Gait not assessed. General Appearance: Alert, Oriented X3, Cooperative, No acute distress Lungs: Other (Bilateral rhonchi) Cardiovascular: Regular rate, Normal S1, Normal S2, No murmurs Abdomen: Normal bowel sounds, Soft, No tenderness Extremities: No edema Medications Current Medications Medications Dose Ordered Sig/Ida Route Start Time Stop Time Status Last Admin Dose Admin Pantoprazole Sodium 40 mg DAILY IV 10/16/25 10:00 10/24/25 09:46 40 MG Acetaminophen 650 mg Q6HP PRN PO 10/16/25 07:30 10/24/25 20:00 650 MG Albuterol 2.5 mg Q4HPRN PRN NEB 10/16/25 07:45 10/24/25 22:11 2.5 MG Ipratropium [place] 0.5 mg Q4HR NEB 10/16/25 10:00 10/24/25 22:11 0.5 MG Acetaminophen/ Hydrocodone Bitart 1 tab Q6HPRN PRN PO 10/16/25 21:00 Metoprolol Tartrate 50 mg BID PO 10/18/25 22:00 10/24/25 21:08 50 MG Furosemide 40 mg BIDD IV 10/19/25 18:00 10/24/25 17:14 40 MG Guaifenesin 200 mg Q4HP PRN PO 10/19/25 11:15 10/24/25 17:14 200 MG Doxycycline Hyclate 100 ml @ 50 mls/hr Q12H IV 10/20/25 10:15 10/24/25 22:41 50 MLS/HR Ceftriaxone Sodium 50 ml @ 100 mls/hr DAILY@09 IV 10/21/25 09:00 10/24/25 09:46 100 MLS/HR Prednisone 20 mg BID PO 10/23/25 22:00 10/28/25 22:00 10/24/25 21:07 20 MG Laboratory Results Laboratory Tests 10/22/25 05:51 Urinalysis Test 10/16/25 18:35 Urine Color Light-yellow (Yellow) Urine Clarity Clear (Clear) Urine pH 5.0 (5.0-9.0) Urine Specific [place] 1.013 (1.001-1.035) Urine Protein Negative (Negative) Urine Ketones Trace (Negative) Urine Blood Negative /uL (Negative) Urine Nitrite Negative (Negative) Urine Bilirubin Negative (Negative) Urine Urobilinogen Normal mg/dL (Negative) Urine Leukocyte Esterase Negative /uL (Negative) Urine RBC <1 /hpf (0 - 4) Urine Microscopic WBC < 1 /HPF (0-5) Urine Squamous Epithelial Cells Few /hpf (<5) Urine Bacteria None seen /hpf (None Seen) Urine Hyaline Casts Few /lpf (0 - 2) Urine Creatinine 71.74 mg/dL (30.0-125.0) Urine Protein/Creatinine Ratio 0.23 Urine Sodium < 10 mmol/L (40-220) L Urine Glucose Normal mg/dL (Normal) Urine Total Protein 16.4 mg/dL (1-14) H Microbiology Microbiology Date/Time Source Procedure Growth Status 10/16/25 22:51 Nose MRSA Screen - Final Complete Assessment/Plan Assessment/Plan Impression: Acute on chronic hypoxic respiratory failure Dependence on supplemental oxygen COPD/asthma Acute on chronic heart failure with preserved ejection fraction Acute kidney injury Anemia Morbid obesity BMI of 40.3 Hx of nicotine dependence Events: Remains on supplemental oxygen, 3 LPM [place] Taper O2 as tolerated No acute overnight events. Continue bronchodilators Continue antibiotics Continue steroids - taper as tolerated Prednisone 20 mg PO BID x5 days. Antitussive PRN cough Blood pressure control Arrange for home health. Monitor hemoglobin Transfuse if less than 7.0 g/dL. Protonix for GI ppx Nephrology recs appreciated. Continue diuresis with Lasix Fluid restriction Monitor renal function. Monitor electrolytes. Supplement as necessary. Maintain euvolemia Monitor ins and outs. Wound care. Disposition per hospitalist. Labs and imaging reviewed. Rest of plan as noted below. Plan: Supplemental oxygen Titrate to keep O2 sats above 92%. BiPAP PRN. Continue bronchodilators. Continue antibiotics Follow up Cardiology recs Monitor hemoglobin Transfuse if less than 7.0 g/dL. Iron supplementation as necessary Protonix for GI ppx Monitor renal function. Monitor electrolytes. Supplement as necessary. Monitor ins and outs. Recommend diet and lifestyle modifications for weight reduction Obesity complicates all care GI/DVT prophylaxis. Prognosis: Poor given patient's multiple co-morbidities. Rest of plan per hospitalist and other consultants. Thank you, Dr. Young, for allowing me to participate in this patient's care. Further recommendations will depend on the patient's clinical course. Please do not hesitate to contact me if you have any questions or concerns. This medical document was created using an electronic medical record system with [employer] dictation system. Although these documentations are being carefully reviewed, there may still be some phonetic and typographical changes. The errors are purely typographical, due to imperfection on the software program, and do not reflect any compromise in the patient's medical care. Plan discussed with: Patient, Other (PIETRO Mi) Visit Coding Pulmonary Billing Provider: MILADY JONES MD Date of Service if different f: Oct 24, 2025 Common Visit Codes: [id number] INP/OBS CARE(HIGH) MILADY JONES MD Oct 24, 2025 23:49
[2025-10-25] VITALS (13 sets, daily range): BP systolic 142–159; BP diastolic 73–82; PULSE 71–91; RESP 15–20; TEMP 97–98.4; O2SAT 90–100
--- NOTE | 2025-10-25 07:44 | DVHPN2 ---
Reviewed: Care Plan, H&P, Labs, Medications, Previous Orders, Radiology Changes from previous H/P or p: No Changes General: Per HPI Skin: Rash Objective Vitals Vital Signs Date Time Temp Pulse Resp B/P (MAP) Pulse Ox O2 Delivery O2 Flow Rate FiO2 10/25/25 07:01 71 16 99 10/25/25 06:55 Room Air 0.0 10/25/25 06:55 21 10/25/25 05:41 148/85 10/25/25 04:44 98.2 98.2 Intake/Output Intake and Output 10/25/25 07:00 Intake Total 1725 ml Balance 1725 ml Intake Oral 1575 ml IV Total 150 ml # Voids 9 # Bowel Movements 2 General Appearance: Alert, Oriented X3, Cooperative, No acute distress Lungs: Other (Bilateral rhonchi) Cardiovascular: Regular rate, Normal S1, Normal S2, No murmurs Abdomen: Normal bowel sounds, Soft, No tenderness Extremities: No edema Medications Current Medications Medications Dose Ordered Sig/Ida Route Start Time Stop Time Status Last Admin Dose Admin Pantoprazole Sodium 40 mg DAILY IV 10/16/25 10:00 10/24/25 09:46 40 MG Acetaminophen 650 mg Q6HP PRN PO 10/16/25 07:30 10/24/25 20:00 650 MG Albuterol 2.5 mg Q4HPRN PRN NEB 10/16/25 07:45 10/25/25 06:55 2.5 MG Ipratropium [place] 0.5 mg Q4HR NEB 10/16/25 10:00 10/25/25 06:55 0.5 MG Acetaminophen/ Hydrocodone Bitart 1 tab Q6HPRN PRN PO 10/16/25 21:00 Metoprolol Tartrate 50 mg BID PO 10/18/25 22:00 10/24/25 21:08 50 MG Furosemide 40 mg BIDD IV 10/19/25 18:00 10/25/25 05:41 40 MG Guaifenesin 200 mg Q4HP PRN PO 10/19/25 11:15 10/24/25 17:14 200 MG Doxycycline Hyclate 100 ml @ 50 mls/hr Q12H IV 10/20/25 10:15 10/24/25 22:41 50 MLS/HR Ceftriaxone Sodium 50 ml @ 100 mls/hr DAILY@09 IV 10/21/25 09:00 10/24/25 09:46 100 MLS/HR Prednisone 20 mg BID PO 10/23/25 22:00 10/28/25 22:00 10/24/25 21:07 20 MG Laboratory Results Laboratory Tests 10/22/25 05:51 Urinalysis Test 10/16/25 18:35 Urine Color Light-yellow (Yellow) Urine Clarity Clear (Clear) Urine pH 5.0 (5.0-9.0) Urine Specific [place] 1.013 (1.001-1.035) Urine Protein Negative (Negative) Urine Ketones Trace (Negative) Urine Blood Negative /uL (Negative) Urine Nitrite Negative (Negative) Urine Bilirubin Negative (Negative) Urine Urobilinogen Normal mg/dL (Negative) Urine Leukocyte Esterase Negative /uL (Negative) Urine RBC <1 /hpf (0 - 4) Urine Microscopic WBC < 1 /HPF (0-5) Urine Squamous Epithelial Cells Few /hpf (<5) Urine Bacteria None seen /hpf (None Seen) Urine Hyaline Casts Few /lpf (0 - 2) Urine Creatinine 71.74 mg/dL (30.0-125.0) Urine Protein/Creatinine Ratio 0.23 Urine Sodium < 10 mmol/L (40-220) L Urine Glucose Normal mg/dL (Normal) Urine Total Protein 16.4 mg/dL (1-14) H Microbiology Microbiology Date/Time Source Procedure Growth Status 10/16/25 22:51 Nose MRSA Screen - Final Complete Labs and/or images reviewed: Labs reviewed by me, Image(s) reviewed by me Assessment/Plan Assessment/Plan Acute hypoxic respiratory failure Acute on chronic heart failure with preserved ejection fraction Hypertension Transaminitis COPD Chronic respiratory failure Bilateral lower extremity cellulitis Chronic anemia Acute kidney injury due to vasomotor nephropathy Plan Bolus 500 mL NS IV fluids NS 100 mL an hour IV antibiotics for the cellulitis clindamycin IV IV iron Nephrology consult Pulmonary consult Monitor the kidney function Full code 10/17/2025: Lower the IV fluids rate to 60 mL an hour Continue IV antibiotics for the cellulitis clindamycin Echo done a month ago showed ejection fraction 65% IV iron 10/18/2025: Discontinue IV fluids Continue clindamycin IV Wound care Give Lasix 40 mg daily Monitor closely Physical therapy 10/19/2025: CHF: Continue Lasix 40 mg twice a day IV Bilateral lower extremity cellulitis Continue clindamycin IV Anemia: IV iron No IV fluids TOM: Monitor the kidney function Nephrology consult Diastolic CHF: Echocardiogram was done 1 month ago showed ejection fraction 65% Hypomagnesemia: Replace IV 10/20/2025: Continue IV Lasix Continue IV antibiotics Change antibiotics to Rocephin and doxycycline Add steroids Oxygen as needed Med neb treatments as needed Monitor closely 10/21/2025: Continue IV antibiotics Rocephin and doxycycline IV steroids IV Lasix Replace potassium magnesium as needed Monitor closely Physical therapy 10/22/2025: pt would benefit from iv abx as her leg wound are severe continue with iv abx for now Plan discussed with: Patient My Orders Orders - LENORA MEJIAS DO Procedure Category Date Status Time * Mechanic CONS 10/24/25 Transmitted Consult Discharge DISCHARGE 10/24/25 Transmitted 09:11 Date of Service: Oct 22, 2025 Billing Provider: LENORA MEJIAS DO Common Visit Codes: [id number] INP/OBS CARE(HIGH) LENORA MEJIAS DO Oct 25, 2025 07:44
--- NOTE | 2025-10-25 07:50 | DVHPN2 ---
Reviewed: Care Plan, H&P, Labs, Medications Changes from previous H/P or p: No Changes General: Per HPI Skin: Rash Objective Vitals Vital Signs Date Time Temp Pulse Resp B/P (MAP) Pulse Ox O2 Delivery O2 Flow Rate FiO2 10/25/25 07:01 71 16 99 10/25/25 06:55 Room Air 0.0 10/25/25 06:55 21 10/25/25 05:41 148/85 10/25/25 04:44 98.2 98.2 Intake/Output Intake and Output 10/25/25 07:00 Intake Total 1725 ml Balance 1725 ml Intake Oral 1575 ml IV Total 150 ml # Voids 9 # Bowel Movements 2 General Appearance: Alert, Oriented X3, Cooperative, No acute distress Lungs: Other (Bilateral rhonchi) Cardiovascular: Regular rate, Normal S1, Normal S2, No murmurs Abdomen: Normal bowel sounds, Soft, No tenderness Extremities: No edema Medications Current Medications Medications Dose Ordered Sig/Ida Route Start Time Stop Time Status Last Admin Dose Admin Pantoprazole Sodium 40 mg DAILY IV 10/16/25 10:00 10/24/25 09:46 40 MG Acetaminophen 650 mg Q6HP PRN PO 10/16/25 07:30 10/24/25 20:00 650 MG Albuterol 2.5 mg Q4HPRN PRN NEB 10/16/25 07:45 10/25/25 06:55 2.5 MG Ipratropium [place] 0.5 mg Q4HR NEB 10/16/25 10:00 10/25/25 06:55 0.5 MG Acetaminophen/ Hydrocodone Bitart 1 tab Q6HPRN PRN PO 10/16/25 21:00 Metoprolol Tartrate 50 mg BID PO 10/18/25 22:00 10/24/25 21:08 50 MG Furosemide 40 mg BIDD IV 10/19/25 18:00 10/25/25 05:41 40 MG Guaifenesin 200 mg Q4HP PRN PO 10/19/25 11:15 10/24/25 17:14 200 MG Doxycycline Hyclate 100 ml @ 50 mls/hr Q12H IV 10/20/25 10:15 10/24/25 22:41 50 MLS/HR Ceftriaxone Sodium 50 ml @ 100 mls/hr DAILY@09 IV 10/21/25 09:00 10/24/25 09:46 100 MLS/HR Prednisone 20 mg BID PO 10/23/25 22:00 10/28/25 22:00 10/24/25 21:07 20 MG Laboratory Results Laboratory Tests 10/22/25 05:51 Urinalysis Test 10/16/25 18:35 Urine Color Light-yellow (Yellow) Urine Clarity Clear (Clear) Urine pH 5.0 (5.0-9.0) Urine Specific [place] 1.013 (1.001-1.035) Urine Protein Negative (Negative) Urine Ketones Trace (Negative) Urine Blood Negative /uL (Negative) Urine Nitrite Negative (Negative) Urine Bilirubin Negative (Negative) Urine Urobilinogen Normal mg/dL (Negative) Urine Leukocyte Esterase Negative /uL (Negative) Urine RBC <1 /hpf (0 - 4) Urine Microscopic WBC < 1 /HPF (0-5) Urine Squamous Epithelial Cells Few /hpf (<5) Urine Bacteria None seen /hpf (None Seen) Urine Hyaline Casts Few /lpf (0 - 2) Urine Creatinine 71.74 mg/dL (30.0-125.0) Urine Protein/Creatinine Ratio 0.23 Urine Sodium < 10 mmol/L (40-220) L Urine Glucose Normal mg/dL (Normal) Urine Total Protein 16.4 mg/dL (1-14) H Microbiology Microbiology Date/Time Source Procedure Growth Status 10/16/25 22:51 Nose MRSA Screen - Final Complete Assessment/Plan Assessment/Plan Acute hypoxic respiratory failure Acute on chronic heart failure with preserved ejection fraction Hypertension Transaminitis COPD Chronic respiratory failure Bilateral lower extremity cellulitis Chronic anemia Acute kidney injury due to vasomotor nephropathy Plan Bolus 500 mL NS IV fluids NS 100 mL an hour IV antibiotics for the cellulitis clindamycin IV IV iron Nephrology consult Pulmonary consult Monitor the kidney function Full code 10/17/2025: Lower the IV fluids rate to 60 mL an hour Continue IV antibiotics for the cellulitis clindamycin Echo done a month ago showed ejection fraction 65% IV iron 10/18/2025: Discontinue IV fluids Continue clindamycin IV Wound care Give Lasix 40 mg daily Monitor closely Physical therapy 10/19/2025: CHF: Continue Lasix 40 mg twice a day IV Bilateral lower extremity cellulitis Continue clindamycin IV Anemia: IV iron No IV fluids TOM: Monitor the kidney function Nephrology consult Diastolic CHF: Echocardiogram was done 1 month ago showed ejection fraction 65% Hypomagnesemia: Replace IV 10/20/2025: Continue IV Lasix Continue IV antibiotics Change antibiotics to Rocephin and doxycycline Add steroids Oxygen as needed Med neb treatments as needed Monitor closely 10/21/2025: Continue IV antibiotics Rocephin and doxycycline IV steroids IV Lasix Replace potassium magnesium as needed Monitor closely Physical therapy 10/22/2025: pt would benefit from iv abx as her leg wound are severe continue with iv abx for now 10/23/2025: continue with iv abx wound care per nursing 10/24/2025: likely will need wound care and home health at discharge consult manager social services for wound care/HH Plan discussed with: Patient My Orders Orders - LENORA MEJIAS DO Procedure Category Date Status Time * Quality Assurance Qa Lab Technician CONS 10/24/25 Transmitted Consult Discharge DISCHARGE 10/24/25 Transmitted 09:11 Date of Service: Oct 24, 2025 Billing Provider: LENORA MEJIAS DO Common Visit Codes: [id number] INP/OBS CARE(HIGH) LENORA MEJIAS DO Oct 25, 2025 07:50
[2025-10-25] MEDS: hydroCHLOROthiazide 25 MG TAB PO ONE (16:00)
--- NOTE | 2025-10-25 16:02 | DVHDS2 ---
Discharge Summary Date of Admission Oct 15, 2025 at 21:48 Date of Discharge: Oct 24, 2025 Labs/Diagnostic Data: Laboratory Results Test 10/22/25 05:51 10/19/25 05:16 10/18/25 07:40 10/17/25 04:26 White Blood Count 9.4 10^3/uL (4.4-10.8) Red Blood Count 2.88 10^6/uL (4.0-5.20) Hemoglobin 8.6 g/dL (12.2-16.2) Hematocrit 26.2 % (36.0-46.0) Mean Corpuscular Volume 90.8 fL (80.0-100.0) Mean Corpuscular Hemoglobin 29.9 pg (28.0-32.0) Mean Corpuscular Hemoglobin Concent 33.0 g/dL (32.0-36.0) Red Cell Distribution Width 20.6 % (11.8-14.3) Platelet Count 265 10^3/uL (140-450) Mean Platelet Volume 6.7 fL (6.9-10.8) Neutrophils (%) (Auto) 81.9 % (37.0-80.0) Lymphocytes (%) (Auto) 11.8 % (10.0-50.0) Monocytes (%) (Auto) 6.0 % (0.0-12.0) Eosinophils (%) (Auto) 0.0 % (0.0-7.0) Basophils (%) (Auto) 0.3 % (0.0-2.0) Neutrophils # (Auto) 7.7 10 ^3/uL (1.6-8.6) Lymphocytes # (Auto) 1.1 10 ^3/uL (0.4-5.4) Monocytes # (Auto) 0.6 10 ^3/uL (0-1.3) Eosinophils # (Auto) 0 10 ^3/uL (0-0.8) Basophils # (Auto) 0 10 ^3/uL (0-0.2) Nucleated Red Blood Cells 0.1 % Sodium Level 141 mmol/L (136-145) Potassium Level 3.9 mmol/L (3.5-5.1) Chloride Level 98 mmol/L (98-107) Carbon Dioxide Level 32 mmol/L (20-31) Anion Gap 11 (5-15) Blood Urea Nitrogen 14 mg/dL (9-23) Creatinine 0.91 mg/dL (0.550-1.02) Glomerular Filtration Rate Calc 70 mL/min (>90) BUN/Creatinine Ratio 15.4 (10.0-20.0) Serum Glucose 131 mg/dL (74-106) Calcium Level 9.1 mg/dL (8.7-10.4) Magnesium Level 2.0 mg/dL (1.6-2.6) Total Bilirubin 0.2 mg/dL (0.2-1.0) Aspartate Amino Transferase (AST) 28 U/L (13-40) Alanine Aminotransferase (ALT) 24 U/L (7-40) Alkaline Phosphatase 71 U/L (46-116) Total Protein 6.2 g/dL (5.7-8.2) Albumin 3.3 g/dL (3.2-4.8) Stool Occult Blood Negative (Negative) Stool Occult Blood Sample #3 (Negative) Platelet Estimate Adequate Clumped Platelets Few Hypochromasia (manual) Anisocytosis (manual) Slight Microcytosis Ovalocytes Few Test 10/17/25 04:22 10/16/25 23:15 10/16/25 18:35 10/16/25 09:07 Triglycerides Level 95 mg/dL (< 150) Cholesterol Level 102 mg/dL (< 200) LDL Cholesterol 26 mg/dL (< 100) HDL Cholesterol 53 mg/dL (40-59) Influenza Type A Antigen Negative (Negative) Influenza Type B Antigen Negative (Negative) SARS-CoV-2 Antigen (Rapid) Negative (NEGATIVE) Urine Color Light-yellow (Yellow) Urine Clarity Clear (Clear) Urine pH 5.0 (5.0-9.0) Urine Specific [place] 1.013 (1.001-1.035) Urine Protein Negative (Negative) Urine Ketones Trace (Negative) Urine Blood Negative /uL (Negative) Urine Nitrite Negative (Negative) Urine Bilirubin Negative (Negative) Urine Urobilinogen Normal mg/dL (Negative) Urine Leukocyte Esterase Negative /uL (Negative) Urine RBC <1 /hpf (0 - 4) Urine Microscopic WBC < 1 /HPF (0-5) Urine Squamous Epithelial Cells Few /hpf (<5) Urine Bacteria None seen /hpf (None Seen) Urine Hyaline Casts Few /lpf (0 - 2) Urine Creatinine 71.74 mg/dL (30.0-125.0) Urine Protein/Creatinine Ratio 0.23 Urine Sodium < 10 mmol/L (40-220) Urine Glucose Normal mg/dL (Normal) Urine Total Protein 16.4 mg/dL (1-14) POC Glucose 79 mg/dl (70-106) Test 10/16/25 04:22 10/15/25 18:36 Reticulocyte Count (auto) 2.33 % (0.5-1.5) Prothrombin Time 10.6 sec (9.3-11.8) Prothrombin Time INR 1.00 (0.9-1.15) Activated Partial Thromboplast Time 28.0 SEC (24.5-34.5) Hemoglobin A1c 5.4 % A1C (<5.7) Iron Level 33 ug/dL (50-170) Total Iron Binding Capacity 288 ug/dL (250-425) Percent Iron Saturation 11.5 % (15-50) Ferritin 69.0 ng/mL (10-291) Vitamin B12 Level 499 pg/mL (211-911) Vitamin D 25-Hydroxy 37.7 ng/mL (30.0-100) Thyroid Stimulating Hormone (TSH) 4.03 uIU/mL (0.55-4.78) Troponin I High Sensitivity 4 ng/L (</=34) B-Type Natriuretic Peptide 102.76 pg/mL (0-100) Other Laboratory Tests 10/22/25 05:51 Brief Hx & Hospital Course: Acute hypoxic respiratory failure Acute on chronic heart failure with preserved ejection fraction Hypertension Transaminitis COPD Chronic respiratory failure Bilateral lower extremity cellulitis Chronic anemia Acute kidney injury due to vasomotor nephropathy Plan Bolus 500 mL NS IV fluids NS 100 mL an hour IV antibiotics for the cellulitis clindamycin IV IV iron Nephrology consult Pulmonary consult Monitor the kidney function Full code 10/17/2025: Lower the IV fluids rate to 60 mL an hour Continue IV antibiotics for the cellulitis clindamycin Echo done a month ago showed ejection fraction 65% IV iron 10/18/2025: Discontinue IV fluids Continue clindamycin IV Wound care Give Lasix 40 mg daily Monitor closely Physical therapy 10/19/2025: CHF: Continue Lasix 40 mg twice a day IV Bilateral lower extremity cellulitis Continue clindamycin IV Anemia: IV iron No IV fluids TOM: Monitor the kidney function Nephrology consult Diastolic CHF: Echocardiogram was done 1 month ago showed ejection fraction 65% Hypomagnesemia: Replace IV 10/20/2025: Continue IV Lasix Continue IV antibiotics Change antibiotics to Rocephin and doxycycline Add steroids Oxygen as needed Med neb treatments as needed Monitor closely 10/21/2025: Continue IV antibiotics Rocephin and doxycycline IV steroids IV Lasix Replace potassium magnesium as needed Monitor closely Physical therapy 10/22/2025: pt would benefit from iv abx as her leg wound are severe continue with iv abx for now 10/23/2025: continue with iv abx wound care per nursing 10/24/2025: likely will need wound care and home health at discharge consult rn social work for wound care/HH hh setup. patient discharged home, completed course inpatinet Condition at Discharge: Stable Final Diagnosis/Problems List cellulitis Discharge Disposition: Home Discharge Instruct/Medications Diet: Cardiac 2g Na,low cholest Activity: Light activity Scheduled Amlodipine Besylate (Amlodipine Besylate), 1 TAB PO DAILY, (Reported) Aripiprazole (Abilify), 1 TAB PO HS, (Reported) Atorvastatin Calcium (Atorvastatin Calcium), 1 TAB PO DAILY, (Reported) Bupropion Hcl (Bupropion Hcl Xl), 1 TAB PO DAILY@BREAKFAST, (Reported) Clonidine Hydrochloride (Clonidine Hcl), 1 TAB PO BID, (Reported) Duloxetine Hcl (Cymbalta), 1 CAP PO Q2D, (Reported) Furosemide (Furosemide), 1 TAB PO DAILY, (Reported) Gabapentin (Gabapentin), 1 CAP PO TID, (Reported) Losartan Potassium (Losartan Potassium), 1 TAB PO DAILY, (Reported) Metoprolol Tartrate (Lopressor Tablet), 1 TAB PO BID, (Reported) Mirtazapine (Remeron), 1 TAB PO QPM, (Reported) Mirtazapine (Mirtazapine Oral Disintegrating Tablet), 1 TAB PO HS, (Reported) Bndmi-7-Layz Ethyl Esters (Zuziu-3-Raax Ethyl Esters), 2 CAP PO DAILY, (Reported) Potassium Chloride (Potassium Chloride ER), 1 TAB PO DAILY, (Reported) Scheduled PRN Cyclobenzaprine HCl (Cyclobenzaprine Hydrochlo), 1 TAB PO BID PRN for FOR MUSCLE SPASM, (Reported) Discharge Statement: "Patient was advised to return to the ER or call 911 if any headaches, dizziness, shortness of breath, chest pain, abdominal pain, bleeding, fevers, or worsening of medical condition. Patient was counseled about treatment plan, medications, possible side effects, patientverbalized understanding. All questions were answered to the best of my ability. This discharge took greater then 30 minutes in planning, reviewing documentation, counseling the patient, and discussing with other team members." ASSESSMENT ASSESSMENT Assessment cellulitis Date of Service: Oct 25, 2025 Billing Provider: TIERNEY MAXWELL MD Common Visit Codes: 71571-YQZ/OBS DISCH DAY >30min TIERNEY MAXWELL MD Oct 25, 2025 16:02
[2025-10-25] MEDS ORDERED: ALBUTEROL SULF 2.5 MG/0.5ML(0.5%) NEB SOLN ONE (17:53)
[2025-10-25] MEDS ORDERED: IPRATROPIUM BROM 0.5 MG/2.5ML INH SOL ONE (17:53)
--- NOTE | 2025-10-25 23:05 | DVHPN2 ---
Subjective OS: 10/25/2025 Patient seen and examined at bedside. Remains on supplemental oxygen Overnight events reviewed. Reviewed: Care Plan, H&P, Labs, Medications Changes from previous H/P or p: No Changes General: Per HPI Skin: Rash Objective Vitals Vital Signs Date Time Temp Pulse Resp B/P (MAP) Pulse Ox O2 Delivery O2 Flow Rate FiO2 10/25/25 17:28 98.4 85 18 144/79 (100) 96 98.4 10/25/25 13:57 Nasal Cannula 2.0 10/25/25 13:57 28 Intake/Output Intake and Output 10/25/25 07:00 Intake Total 1725 ml Balance 1725 ml Intake Oral 1575 ml IV Total 150 ml # Voids 9 # Bowel Movements 2 Exam Gen.: Patient lying in bed in no apparent distress. On supplemental oxygen. Head: Normocephalic, atraumatic. Eyes: EOMI/PERRLA. Ears: Normal hearing. Normal anatomy. Neck/trachea: Trachea midline, supple. Nose: Normal external anatomy. Mouth: Moist mucous membranes. Chest: Decreased air entry bilaterally. No wheezing or rhonchi. Cardiovascular: Positive S1, positive S2. Regular rate and rhythm. Abdomen: Positive bowel sounds in all 4 quadrants. Soft, non-tender, non- distended. : Deferred. Rectal: Deferred. Skin: Warm, dry. Intact. Extremities: 2+ radial pulses bilaterally. No lower extremity edema. Neuro: Awake, alert, oriented x3. No gross motor or sensory deficits. Cranial nerves II through XII intact. Gait not assessed. General Appearance: Alert, Oriented X3, Cooperative, No acute distress Lungs: Other (Bilateral rhonchi) Cardiovascular: Regular rate, Normal S1, Normal S2, No murmurs Abdomen: Normal bowel sounds, Soft, No tenderness Extremities: No edema Laboratory Results Laboratory Tests 10/22/25 05:51 Urinalysis Test 10/16/25 18:35 Urine Color Light-yellow (Yellow) Urine Clarity Clear (Clear) Urine pH 5.0 (5.0-9.0) Urine Specific [place] 1.013 (1.001-1.035) Urine Protein Negative (Negative) Urine Ketones Trace (Negative) Urine Blood Negative /uL (Negative) Urine Nitrite Negative (Negative) Urine Bilirubin Negative (Negative) Urine Urobilinogen Normal mg/dL (Negative) Urine Leukocyte Esterase Negative /uL (Negative) Urine RBC <1 /hpf (0 - 4) Urine Microscopic WBC < 1 /HPF (0-5) Urine Squamous Epithelial Cells Few /hpf (<5) Urine Bacteria None seen /hpf (None Seen) Urine Hyaline Casts Few /lpf (0 - 2) Urine Creatinine 71.74 mg/dL (30.0-125.0) Urine Protein/Creatinine Ratio 0.23 Urine Sodium < 10 mmol/L (40-220) L Urine Glucose Normal mg/dL (Normal) Urine Total Protein 16.4 mg/dL (1-14) H Microbiology Microbiology Date/Time Source Procedure Growth Status 10/16/25 22:51 Nose MRSA Screen - Final Complete Assessment/Plan Assessment/Plan Impression: Acute on chronic hypoxic respiratory failure Dependence on supplemental oxygen COPD/asthma Acute on chronic heart failure with preserved ejection fraction Acute kidney injury Anemia Morbid obesity BMI of 40.3 Hx of nicotine dependence Events: Remains on supplemental oxygen, 3 LPM NC Taper O2 as tolerated No acute overnight events. Continue bronchodilators Continue antibiotics Complete prednisone course (20 mg PO BID x5 days) Antitussive PRN cough Blood pressure control Arrange for home health. Monitor hemoglobin Transfuse if less than 7.0 g/dL. Protonix for GI ppx Nephrology recs appreciated. Continue diuresis with Lasix Fluid restriction Monitor renal function. Monitor electrolytes. Supplement as necessary. Maintain euvolemia Monitor ins and outs. Wound care. Patient is stable for discharge from the pulmonary standpoint. Disposition per hospitalist. Labs and imaging reviewed. Rest of plan as noted below. Plan: Supplemental oxygen Titrate to keep O2 sats above 92%. BiPAP PRN. Continue bronchodilators. Continue antibiotics Follow up Cardiology recs Monitor hemoglobin Transfuse if less than 7.0 g/dL. Iron supplementation as necessary Protonix for GI ppx Monitor renal function. Monitor electrolytes. Supplement as necessary. Monitor ins and outs. Recommend diet and lifestyle modifications for weight reduction Obesity complicates all care GI/DVT prophylaxis. Prognosis: Poor given patient's multiple co-morbidities. Rest of plan per hospitalist and other consultants. Thank you, Dr. Young, for allowing me to participate in this patient's care. Further recommendations will depend on the patient's clinical course. Please do not hesitate to contact me if you have any questions or concerns. This medical document was created using an electronic medical record system with [employer] computerized dictation system. Although these documentations are being carefully reviewed, there may still be some phonetic and typographical changes. The errors are purely typographical, due to imperfection on the software program, and do not reflect any compromise in the patient's medical care. Plan discussed with: Patient, Other (PIETRO Ruiz) Visit Coding Pulmonary Billing Provider: MILADY JONES MD Date of Service if different f: Oct 25, 2025 Common Visit Codes: [id number] INP/OBS CARE(HIGH) MILADY JONES MD Oct 25, 2025 23:05
[2025-10-26] MEDS ORDERED: hydroCHLOROthiazide 25 MG TAB PO SCH (10:00)
--- NOTE | 2025-11-10 09:32 | ECG ---
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
== END 2025-10-25 17:30 | disposition home health service (06) | DRG 602 ==
LOC: ER 16:49 → EDBD 16:49 → OVERFLOW 21:48 → TELE-EAST 10-16 05:35
PROVIDERS: ADMIT Student in an Organized Health Care Education/Training Program; ATTEND Student in an Organized Health Care Education/Training Program
DX: L03.116 Cellulitis of left lower limb (principal); I50.33 Acute on chronic diastolic (congestive) heart failure; J96.21 Acute and chronic respiratory failure with hypoxia; N17.0 Acute kidney failure with tubular necrosis; K56.609 Unspecified intestinal obstruction, unspecified as to partial versus complete obstruction; I13.0 Hypertensive heart and chronic kidney disease with heart failure and stage 1 through stage 4 chronic kidney disease, or unspecified chronic kidney disease; L03.115 Cellulitis of right lower limb; E66.01 Morbid (severe) obesity due to excess calories; D64.9 Anemia, unspecified; J44.89 Other specified chronic obstructive pulmonary disease; F32.A Depression, unspecified; F20.9 Schizophrenia, unspecified; Z68.41 Body mass index [BMI] 40.0-44.9, adult; E86.0 Dehydration; Z20.822 Contact with and (suspected) exposure to COVID-19; I87.2 Venous insufficiency (chronic) (peripheral); L30.8 Other specified dermatitis; K21.9 Gastro-esophageal reflux disease without esophagitis; G89.29 Other chronic pain; R74.01 Elevation of levels of liver transaminase levels; N18.2 Chronic kidney disease, stage 2 (mild); E83.42 Hypomagnesemia; Z87.891 Personal history of nicotine dependence; Z99.81 Dependence on supplemental oxygen; Z83.3 Family history of diabetes mellitus; Z79.899 Other long term (current) drug therapy
CPT/HCPCS: 36415; 71045; 74176; 76775; 80048; 80053; 80061; 81001; 82270; 82306; 82570; 82607; 82728; 82962; 83036; 83540; 83550; 83735; 83880; 84156; 84300; 84443; 84484; 85014; 85018; 85025; 85045; 85610; 85730; 87081; 87426; 87804; 93005; 93970; 94640; 97163; 99291; G0378; J1756; J2470; J3490